=== PATIENT | female | born 1955 | race Caucasian/White ===

== ENCOUNTER 2018-04-25 13:41 | Inpatient (IN) | payer OTHER ==
[2018-04-25] MEDS ORDERED: TYLENOL 325 MG PO PRN (14:21)
[2018-04-25] MEDS ORDERED: Sodium Chloride 0.9% 10 ML FLUSH Syringe IV PRN (14:30)
[2018-04-25] MEDS ORDERED: PROVENTIL 2.5 MG/3 ML NEB IH PRN (14:43)
[2018-04-25] MEDS: DUONEB 0.5-3 MG/3 ml Neb IH SCH ×3 (14:43→22:58)
[2018-04-25 14:46] LABS: Hematocrit 52.7 % (35-47); Hemoglobin 16.6 gm/dl (12.0-16.0); Mean Cell Volume 103.1 fl (78-100); Mean Corpuscular Hgb Concent. 31.5 g/dl (32-36); Mean Platelet Volume 10.7 fl (6-9.5); Platelet Count 161 K/mm3 (150-450); Red Blood Count 5.11 M/mm3 (4.1-5.4); Red Cell Distribution Width 16.8 % (11.5-14.0)
[2018-04-25 14:48] LABS: Mean Corpuscular Hemoglobin 32.4 pg (26-32)
[2018-04-25 15:11] LABS: ALBUMIN 3.8 g/dL (3.5-5.0); ALKALINE PHOSPHATASE 89 U/L (38-126); ANION GAP 14.2 MEQ/L (5-15); BLOOD UREA NITROGEN 28 mg/dL (7-17); CHLORIDE 101 mmol/L (98-107); Calcium 8.5 mg/dL (8.4-10.2); Carbon Dioxide 32 mmol/L (22-30); Creatinine 1 0.66 mg/dL (0.52-1.04); Glucose 99 mg/dL (74-106); NT PRO BNP 2680 pg/mL (0-900); Potassium 4.3 mmol/L (3.5-5.1); SGOT/AST 241 U/L (14-36); SGPT/ALT 551 U/L (0-35); SODIUM 143 mmol/L (137-145); Total Protein 7.2 g/dL (6.3-8.2)
[2018-04-25 15:15] LABS: BAND 2 % (0.0-2.0); Lymphocytes 23 % (24-44); Monocyte 5 % (0.0-12.0); Neutrophils 70 % (36.0-66.0); Total Cells Counted 100
[2018-04-25 15:18] LABS: Platelet Estimate NORMAL (NORMAL)
[2018-04-25 15:19] LABS: Poikilocytosis 1+
[2018-04-25] MEDS: solu-MEDROL 125 MG IV SCH ×2 (15:44→21:06)
[2018-04-25] MEDS: ROCEPHIN 1 Gm-D5w 50 ml Bag** 1 G/50 ML IVPB IV SCH (15:51)
[2018-04-25] MEDS: Protonix 40MG Tablet PO SCH (15:57)
--- NOTE | 2018-04-25 16:15 | XRAY ---
Indication: Productive cough, congestion, and short of breath one week. Comparison: June 03, 2016. PA/lateral chest now demonstrates small focus lingular subsegmental atelectasis/scarring. No focal infiltrate, consolidation, or large effusion. Heart is not enlarged. Bony thorax intact again with distal left clavicle resection and T10/T11 kyphoplasty. Impression: Lingular subsegmental atelectasis/scarring. Negative acute pneumonic process or CHF.
[2018-04-25] MEDS: Zithromax 500 MG/ 250 ML NaCl Premix 500 MG/250 ML IVPB IV SCH (16:21)
[2018-04-25] MEDS ORDERED: MEDICATION INTERVENTION PO SCH (17:00)
[2018-04-25] MEDS ORDERED: Lasix 20 MG/2 ML IV ONE (17:00)
[2018-04-25] MEDS ORDERED: Colace 100 MG PO PRN (19:39)
[2018-04-25 19:44] LABS: A-aADO2 76; ABG HEMOGLOBIN 16.4; ARTERIAL BLD GAS O2 SATURATION 96.3 % (95-100); ARTERIAL BLOOD GAS BASE EXCESS 1.5 (-2.0-2.0); ARTERIAL BLOOD GAS FIO2 32 %; ARTERIAL BLOOD GAS PO2 71 mmHg (75-100); ARTERIAL BLOOD GAS pH 7.28 (7.35-7.45); CARBOXYHEMOGLOBIN 4.2 % THgb (0.0-6.9); HCO3- 30.5 (22-28); Methhemoglobin 1.3 % (1.4-1.5); paO2 pAO1 0.48
[2018-04-25 19:45] LABS: ABG SITE RIGHT BRACHIAL; ARTERIAL BLOOD GAS PCO2 65 mmHg (35-45)
[2018-04-25] MEDS: lamICTAL 100MG TABLET PO SCH (21:07)
[2018-04-25] MEDS: Sodium Chloride 0.9% 10 ML FLUSH Syringe IV SCH (21:07)
[2018-04-25] MEDS ORDERED: ZOLOFT 50 MG TABLET PO SCH (22:00)
[2018-04-25] MEDS ORDERED: ZONISAMIDE 300 MG PO SCH (22:00)
[2018-04-25] MEDS ORDERED: LAMOTRIGINE 150 MG PO SCH (22:00)
[2018-04-25] MEDS ORDERED: NON-FORMULARY ITEM (Sertraline Hcl 100 Mg [Zoloft 100 Mg] 100 MG) PO SCH (22:00)
[2018-04-26] MEDS: DUONEB 0.5-3 MG/3 ml Neb IH SCH ×6 (02:58→23:15)
[2018-04-26 03:49] LABS: A-aADO2 63; ABG HEMOGLOBIN 15.4; ABG POTASSIUM 4.3 (3.5-5.1); ARTERIAL BLD GAS O2 SATURATION 98.5 % (95-100); ARTERIAL BLOOD GAS BASE EXCESS 2.2 (-2.0-2.0); ARTERIAL BLOOD GAS FIO2 35 %; ARTERIAL BLOOD GAS PCO2 73 mmHg (35-45); ARTERIAL BLOOD GAS PO2 95 mmHg (75-100); ARTERIAL BLOOD GAS pH 7.25 (7.35-7.45); CARBOXYHEMOGLOBIN 3.6 % THgb (0.0-6.9); HGB O2 SAT 93.8 g/dF (94-100); Methhemoglobin 1.1 % (1.4-1.5)
[2018-04-26 03:50] LABS: ABG SITE RIGHT BRACHIAL
[2018-04-26] MEDS: solu-MEDROL 125 MG IV SCH ×3 (05:17→21:35)
[2018-04-26] MEDS: Sodium Chloride 0.9% 10 ML FLUSH Syringe IV SCH ×3 (05:18→21:35)
[2018-04-26 05:44] LABS: A-aADO2 57; ABG POTASSIUM 4.3 (3.5-5.1); ARTERIAL BLD GAS O2 SATURATION 98.3 % (95-100); ARTERIAL BLOOD GAS BASE EXCESS 3.9 (-2.0-2.0); ARTERIAL BLOOD GAS FIO2 35 %; ARTERIAL BLOOD GAS PO2 101 mmHg (75-100); ARTERIAL BLOOD GAS pH 7.27 (7.35-7.45); CARBOXYHEMOGLOBIN 3.2 % THgb (0.0-6.9); HCO3- 33.5 (22-28); Methhemoglobin 1.2 % (1.4-1.5); paO2 pAO1 0.64
[2018-04-26 05:45] LABS: ABG SITE RIGHT BRACHIAL; ARTERIAL BLOOD GAS PCO2 73 mmHg (35-45)
[2018-04-26 05:59] LABS: Hematocrit 49.4 % (35-47); Hemoglobin 15.1 gm/dl (12.0-16.0); Mean Cell Volume 104.9 fl (78-100); Mean Corpuscular Hemoglobin 32.1 pg (26-32); Mean Corpuscular Hgb Concent. 30.6 g/dl (32-36); Mean Platelet Volume 10.4 fl (6-9.5); Platelet Count 145 K/mm3 (150-450); Red Blood Count 4.71 M/mm3 (4.1-5.4); Red Cell Distribution Width 16.2 % (11.5-14.0); White Blood Count 3.4 K/mm3 (4.0-10.5)
[2018-04-26 06:07] LABS: ALBUMIN 3.3 g/dL (3.5-5.0); ALKALINE PHOSPHATASE 72 U/L (38-126); ANION GAP 11.2 MEQ/L (5-15); BLOOD UREA NITROGEN 21 mg/dL (7-17); CHLORIDE 99 mmol/L (98-107); Calcium 8.1 mg/dL (8.4-10.2); Carbon Dioxide 33 mmol/L (22-30); Glucose 130 mg/dL (74-106); Potassium 4.5 mmol/L (3.5-5.1); SGOT/AST 121 U/L (14-36); SGPT/ALT 398 U/L (0-35); SODIUM 139 mmol/L (137-145); Total Protein 6.3 g/dL (6.3-8.2)
[2018-04-26 07:18] LABS: BAND 2 % (0.0-2.0); Lymphocytes 10 % (24-44); Monocyte 6 % (0.0-12.0); Neutrophils 82 % (36.0-66.0); Total Cells Counted 100
[2018-04-26 07:19] LABS: Platelet Estimate DECREASED (NORMAL)
[2018-04-26 07:20] LABS: Basophilic Stippling 1+; Polychromasia 1+
[2018-04-26 07:21] LABS: Hypochromia 1+; Macrocytosis 1+
--- NOTE | 2018-04-26 09:31 | XRAY ---
Indication: COPD exacerbation. Elevated d-dimer. Multiple contiguous axial images obtained through the chest using 80 cc Isovue 370 contrast and PE protocol. Comparison: None. There is good opacification of the pulmonary arteries to include the lobar and segmental branches. No filling defect or pulmonary embolus. Heart is borderline enlarged. Aorta is normal in course and caliber with minimal calcifications. A few prominent mediastinal lymph nodes, largest distal paratracheal measuring 1.6 x 1.9 cm. 1.9 x 3 cm right supra hilar node. Left infrahilar calcified nodes. Mid to distal esophagus demonstrates diffuse wall thickening, possible esophagitis with malignancy not completely excluded. Examination of the lung parenchyma demonstrates subsegmental atelectasis/scarring in both lower lobes, right middle lobe, and lingula. 5 mm noncalcified nodularity in the posterior right upper lobe and lingular calcified granuloma. No infiltrate or effusion. Bony thorax demonstrates previous T10/T11 kyphoplasty and superior T4 Schmorl node. Limited upper abdomen demonstrates fatty liver, hepatic/splenic calcified granulomas, and bilateral renal cysts. 3.5 x 4.7 cm heterogeneous right adrenal gland mass and left adrenal gland hypertrophy. Impression: 1. Negative pulmonary embolus. 2. Scattered atelectasis/scarring. No acute cardiopulmonary abnormalities. 3. Tiny right upper lobe noncalcified nodularity. Finding possibly granulomatous as there is evidence for old granulomatous disease elsewhere. 4. Abnormal esophageal wall thickening. Rule out esophagitis versus malignancy. Direct endoscopy may yield further information. 5. Nonspecific mediastinal and right hilar prominent nodes. 6. Large indeterminant right adrenal gland mass. Left adrenal gland hypertrophy. 7. Fatty liver and bilateral renal cysts. Comment: Preliminary interpretation was made by [facility]. No critical discrepancy. CT DI 23.69
--- NOTE | 2018-04-26 09:54 | HP ---
HISTORY OF PRESENT ILLNESS: This is a 62 year-old patient of mine who presented to the clinic yesterday. She reported she had cough and congestion that started four days ago and fever up to 101F. She stated that cough was productive of yellow sputum and she had been taking some mucous relief ckch-tga-witrsul cough medicine and coughing some stuff up with this. She reports she had been taking fluids well but had started having some vomiting four day ago and diarrhea yesterday. She had a decreased appetite. She has history of chronic obstructive pulmonary disease but has not been following closely with a park maintainer. She does not wear oxygen at home. In our clinic her oxygen saturation was found to be 79% on room air. She was placed on 2 liters by nasal cannula and it quickly came up to 93%. She was not in any respiratory distress but on her lung exam she did have expiratory wheezes throughout and rhonchi. The patient was agreeable to being a direct admission to the hospital and so she was transported by ambulance to our Med/Surg floor. Overnight the respiratory therapist reported the patient was more confused so a blood gas was drawn where she was found to have acidotic and high carbon dioxide level. At that time park maintainer, Dr. Lavelle De La Cruz, was contacted and they decided to use BiPAP and she was on this overnight. A repeat blood gas at around 0330 hours in the morning did not show much improvement. Adjustments were made in the BiPAP and repeat blood gas again was about the same. The nurses and respiratory therapist report that Dr. De La Cruz could see the patient this afternoon. I discussed with the patient today at the bedside when she was alert and oriented x3 and if she would need intubated she does want to be intubated. I discussed with her smoking. She reports that right now she is not ready to quit but knows that she needs to. REVIEW OF SYSTEMS: She reports her appetite is better. The vomiting and diarrhea have stopped. She reports the cough has improved. She is not feeling extremity short of breath at this time. She continues to have some easy bruising on her arms. PAST MEDICAL HISTORY: Chronic obstructive pulmonary disease, depression, seizure disorder. History of retinol allergy branch occlusion. Stroke in 2010 which the patient reports affects her word finding sometimes. History of right adrenal mass on recent MRI in February 2018 which was unchanged from MRI in 2015. PAST SURGICAL HISTORY: Hysterectomy. Tubal ligation. Appendectomy. Right tube removed due to ectopic . Carpal tunnel surgery. MEDICATIONS: Please see the medication reconciliation list. ALLERGIES: MIDOL. STATINS. SOCIAL HISTORY: The patient lives alone and has a dog. [place] She is currently on Disability and not working. She reports she smokes up to 10 cigarettes a day. She denies any alcohol use. FAMILY HISTORY: Noncontributory. PHYSICAL EXAMINATION: VITAL SIGNS: Temperature current 96.4F, temperature max 98.2F, heart rate 71 to 83, respiratory rate 17 to 22, blood pressure 107 to 136 over 53 to 67, weight 107.7 kg. Oxygen saturation 95 to 96% on 35% oxygen on BiPAP. GENERAL: The patient is a pleasant talkative lady sitting up in bed in no acute distress. She is eating her breakfast currently off BiPAP at the moment on oxygen by nasal cannula. She is alert and oriented x3. She knows who the President of [email or web address] is. CVS: She has a regular rate and rhythm. No murmurs, gallops or rubs. CHEST: She has decreased breath sounds at the bases with expiratory wheezes and rhonchi throughout. No retractions. No dyspnea. No tachypnea. ABDOMEN: Soft, nontender, nondistended with normal bowel sounds. EXTREMITIES: She does have clubbing. No cyanosis or edema. SKIN: She has multiple bruises. Her nose has a bluish tint. LABORATORY DATA AND TESTS: On admission her white blood cell count was 5.0 and repeat was 3.4. Hemoglobin 16.6 repeat 15.1. PLT 161,000 to 145,000. BNP was 2680. Carbon dioxide 32. BUN 28. D-dimer was 3,459. Please see the blood gas results in the computer which I reviewed. She had a chest CT and according to the preliminary report did not show any pulmonary embolism. Please see the radiologist report for the full dictation. Chest x-ray no acute disease. ASSESSMENT AND PLAN: 1) CHRONIC OBSTRUCTIVE PULMONARY DISEASE EXACERBATION WITH ACUTE ON CHRONIC RESPIRATORY FAILURE: She is on BiPAP. She is on ceftriaxone, azithromycin as well as IV steroids and DuoNeb. Dr. Lavelle De La Cruz has been consulted and is following and plans to see the patient this afternoon. I discussed with the patient her code status and she does want to be intubated if she needs to be. 2) HISTORY OF STROKE: Will continue with aspirin 325 mg p.o. daily. 3) MIXED HYPERLIPIDEMIA: She reports she has not been able to tolerate statins in the past. 4) SEIZURE DISORDER: Will continue her home seizure medication. One of these the pharmacy did not have but reported that they would be able to get this morning. 5) TOBACCO DEPENDENCE: The patient was counseled that she needs to quit smoking. 6) HISTORY OF ADRENAL MASS: We have been following this as an outpatient. 7) ELEVATED LIVER FUNCTION TEST: This appears to be new for her. I ordered a hepatitis panel. 8) ELEVATD BNP: I believe she has had an echo done but I do not see a reading on that so will try to see if we can get a reading, this was done as an outpatient earlier this summer.
[2018-04-26] MEDS: lamICTAL 100MG TABLET PO SCH ×2 (10:33→21:33)
[2018-04-26] MEDS: Ecotrin 325 MG PO SCH (10:33)
[2018-04-26] MEDS: Protonix 40MG Tablet PO SCH (10:33)
[2018-04-26] MEDS: NON-FORMULARY ITEM PO SCH ×2 (10:34→21:35)
[2018-04-26] MEDS: ZOLOFT 50 MG TABLET PO SCH (10:34)
[2018-04-26] MEDS: ROCEPHIN 1 Gm-D5w 50 ml Bag** 1 G/50 ML IVPB IV SCH (10:41)
[2018-04-26] MEDS: Zithromax 500 MG/ 250 ML NaCl Premix 500 MG/250 ML IVPB IV SCH (13:11)
--- NOTE | 2018-04-26 15:34 | CONS ---
CONSULT DATE: 04/26/2018 REASON FOR CONSULT: Evaluation of shortness of breath. HISTORY: Camryn Vinson is a 62 year-old woman known to me but not regularly followed, who has been sick for about a week. The patient has been admitted from the emergency room with complaints, shortness of breath and wheezing. She had a CT chest performed which showed negative for pulmonary embolism. It did show evidence of lung nodule but more importantly showed dilated esophagus with likely lower esophageal mass and an enlarged adrenal gland which measures 5 x 4.5 cm on right side. The patient was noted to have hypercapnic respiratory failure and was treated with BiPAP. Although her ABG did not show drastic improvement clinically she has been feeling better and able to talk. At the time of my evaluation the patient has been completely off of BiPAP. She is able to talk full sentences without any significant distress. PAST MEDICAL HISTORY: Positive for chronic obstructive pulmonary disease, history of seizure disorder for which she sees Dr. Quintana. Her last seizure was more than two years ago. History of chronic respiratory failure, depression, retinal artery occlusion. PAST SURGICAL HISTORY: Hysterectomy, tubal ligation, appendectomy, removal of fallopian tube for ectopic and carpal tunnel surgery. REVIEW OF SYSTEMS: The patient does complain of dysphagia, frequent nausea and vomiting for the past few weeks. PERSONAL AND SOCIAL HISTORY: The patient still smokes half to one pack of cigarettes per day. She lives in [facility]. Apparently two of her colleagues at the facility are currently being diagnosed and treated for histoplasmosis. Details are unavailable. MEDICATIONS: Home and current medications are reviewed. ALLERGIES: MIDOL. STATIN. PHYSICAL EXAMINATION: A middle aged woman who appears fairly comfortable, able to speak without difficulty. Vital signs noted. HEENT: Normocephalic. Pupils are reactive. Oral exam shows small oropharynx. NECK: Supple. CVS: First and second heart sounds are normal, regular, rhythmic. RESPIRATORY: Shows diminished breath sounds, fairly diffuse rhonchi heard. ABDOMEN: Obese. EXTREMITIES: No significant edema is noted. LABORATORY DATA AND TESTS: White blood cell count 3.4, hemoglobin 15.1, hematocrit 49, PLT 145,000. Sodium 139, potassium 4.5, chloride 99, bicarb 33, glucose 130, BUN 20, creatinine 0.8. D-dimer was 3459. Sputum culture is pending. ABG reviewed. CT chest reviewed as well. ASSESSMENT: This is a 62 year old woman admitted with: 1) Acute on chronic hypercapnic and hypoxic respiratory failure. 2) Chronic obstructive pulmonary disease with acute exacerbation. 3) Acute bronchitis. 4) Right lung nodule will require follow up for stability. 5) Abnormal CT scan with dilated esophagus with likely lower esophageal mass for which EGD is warranted. The patient has never had this performed before. 6) Adrenal lesion: Apparently stable per MRI according to Dr. Ferris note. RECOMMENDATIONS: I agree with the present treatment. Need for use of BiPAP was discussed with patient. She is willing to try it overnight. Continue IV antibiotics, steroids, bronchodilators. Would benefit from EGD however the patient's pulmonary status needs to be improved in order to tolerate modified anesthesia without risk of intubation. Need for complete smoking cessation was stressed. Will continue to follow. Thank you for allowing me to participate in the care of your patient.
--- NOTE | 2018-04-26 16:46 | XRAY ---
Indication: Leg swelling. Elevated d-dimer. Two-dimensional sonogram and color Doppler imaging of the major venous vessels of the left and right leg was performed. Comparison: None No thrombus seen in the examined deep venous vessels of the left and right leg including greater saphenous veins. Veins demonstrate normal compressibility. Venous waveforms are normal with and without augmentation. Right popliteal fossa demonstrates 2 Main's cyst, largest measuring 7.2 x 3.6 x 2.5 cm. Smaller 3.2 x 0.9 x 1.8 cm left knee Main's cyst. Impression: 1. Left and right legs negative for DVT. 2. Incidental bilateral Main's cysts.
[2018-04-27] MEDS: DUONEB 0.5-3 MG/3 ml Neb IH SCH ×6 (03:10→23:20)
[2018-04-27 05:47] LABS: Hematocrit 47.6 % (35-47); Hemoglobin 14.4 gm/dl (12.0-16.0); Mean Corpuscular Hemoglobin 32.1 pg (26-32); Mean Corpuscular Hgb Concent. 30.3 g/dl (32-36); Mean Platelet Volume 10.6 fl (6-9.5); Platelet Count 146 K/mm3 (150-450); Red Blood Count 4.49 M/mm3 (4.1-5.4); Red Cell Distribution Width 16.3 % (11.5-14.0); White Blood Count 6.8 K/mm3 (4.0-10.5)
[2018-04-27] MEDS: solu-MEDROL 125 MG IV SCH (06:40)
[2018-04-27] MEDS: Sodium Chloride 0.9% 10 ML FLUSH Syringe IV SCH ×3 (06:40→22:44)
--- NOTE | 2018-04-27 09:04 | PCM.NOTE ---
Date and Time: 04/27/18 0858 Subjective Assessment: Patient reports that she has been drinking plenty of fluids. She is asking when she can go home. From old notes, Dr. De La Cruz had asked her to see Dr. Moran 2 years ago for an upper endoscopy because a scan at that time had also shown esophageal thickening, but the patient does not think that she ever went to see Dr. Moran for this. Patient had an abdominal MRI on 03/29/18 for her adrenal mass and this was lipid rich on the MRI and the same size as a scan from 2016 so felt to be benign. The left adrenal gland on the MRI was read as normal size. I discussed this with radiologist, Dr. Waldrop, today. - Review of Systems Constitutional: Weakness, Other (shortness of breath with exertion) Eyes: No Symptoms Ears, Nose, & Throat: No Symptoms Respiratory: Cough, Other (cough productive of some yellow sputum) Cardiac: No Symptoms Abdominal/Gastrointestinal: Other (good appetite), No Nausea, No Vomiting, No Diarrhea, No Constipation Genitourinary Symptoms: No Symptoms Musculoskeletal: No Symptoms Skin: No Symptoms Objective Exam General Appearance: no apparent distress, alert, obese, other (sitting up in bed eating her breakfast, pleasant and talkative) Neurologic Exam: alert, cooperative, normal mood/affect Skin Exam: warm, dry, other (blue discoloration to nose), No rash Respiratory Exam: other (decreased breath sounds at bases bilat and expiratory wheezes throughout, no tachypnea, speaking in full sentences) Cardiovascular Exam: regular rate/rhythm, normal heart sounds, No murmur, No friction rub, No gallop Extremity Exam: normal inspection, other (no c/c/e) OBJECTIVE DATA Vital Signs: Vital Signs - 24 hr Temp Pulse Resp BP Pulse Ox 04/27/18 07:17 97.6 F 79 22 116/61 94 L 04/27/18 06:30 85 16 98 04/27/18 04:00 98.5 F 88 19 127/60 91 L 04/27/18 03:53 85 18 91 L 04/26/18 23:46 88 18 93 L 04/26/18 23:30 98.7 F 81 22 111/57 97 04/26/18 20:29 93 L 04/26/18 20:02 98.8 F 75 18 135/85 93 L 04/26/18 19:36 75 18 93 L 04/26/18 16:17 95 04/26/18 16:10 98 04/26/18 16:00 97.8 F 84 20 118/58 96 04/26/18 14:46 81 20 99 04/26/18 12:00 98.2 F 86 20 119/75 98 04/26/18 10:46 81 20 96 Oxygen-Last 24 hours O2 Percentage 35% O2 Percentage 3 Liters = 32% O2 Percentage 3 Liters = 32% O2 Percentage 2 Liters = 28% O2 Percentage 3 Liters = 32% Pain Assessment - Last Documented Pain Intensity 0 Pain Scale Used 0-10 Pain Scale Intake and Output: Intake & Output 04/25/18 04/26/18 04/27/18 04/28/18 06:59 06:59 06:59 06:59 Intake Total 1140 1240 Output Total 1600 2925 Balance -460 -1685 Weight 107.7 kg 105.3 kg Lab Results: Lab Results-Last 24 Hours 04/27/18 Range/Units 05:12 WBC 6.8 (4.0-10.5) K/mm3 RBC 4.49 (4.1-5.4) M/mm3 Hgb 14.4 (12.0-16.0) gm/dl Hct 47.6 H (35-47) % MCV 106.0 H (78-100) fl MCH 32.1 H (26-32) pg MCHC 30.3 L (32-36) g/dl RDW 16.3 H (11.5-14.0) % Plt Count 146 L (150-450) K/mm3 MPV 10.6 H (6-9.5) fl Radiology Exams: Radiology Procedures Category Date Time Status CHEST 2 VIEWS (PA AND LAT) Routine Exams 04/25/18 15:00 Completed CHEST WITH CONTRAST [CT] Stat Exams 04/25/18 21:49 Completed VENOUS BILATERAL EXTREMITY [US] Routine Exams 04/26/18 14:45 Completed Assessment/Plan (1) COPD exacerbation Current Visit: Yes Status: Acute Onset Date: ~04/25/18 Assessment & Plan: Continue IV antibiotics, IV steroids, oxygen, BIPAP at night. Dr. Doug De La Cruz following and I appreciate his input into her care. Histoplasmosis lab ordered but not back yet. Code(s): J44.1 - CHRONIC OBSTRUCTIVE PULMONARY DISEASE W (ACUTE) EXACERBATION (2) Acute on chronic respiratory failure Current Visit: Yes Status: Acute Code(s): J96.20 - ACUTE AND CHR RESP FAILURE, UNSP W HYPOXIA OR HYPERCAPNIA (3) History of stroke Current Visit: Yes Status: Acute Assessment & Plan: Continue aspirin. Code(s): Z86.73 - PRSNL HX OF TIA (TIA), AND CEREB INFRC W/O RESID DEFICITS (4) Mixed hyperlipidemia Current Visit: Yes Status: Acute Assessment & Plan: She has not tolerated statins in past. Will start zetia. Code(s): E78.2 - MIXED HYPERLIPIDEMIA (5) Seizure disorder Current Visit: Yes Status: Acute Assessment & Plan: Continue home medication. Code(s): G40.909 - EPILEPSY, UNSP, NOT INTRACTABLE, WITHOUT STATUS EPILEPTICUS (6) Tobacco dependence Current Visit: Yes Status: Acute Assessment & Plan: She has been counseled to quit smoking. Code(s): F17.200 - NICOTINE DEPENDENCE, UNSPECIFIED, UNCOMPLICATED (7) Adrenal adenoma Current Visit: Yes Status: Acute Code(s): D35.00 - BENIGN NEOPLASM OF UNSPECIFIED ADRENAL GLAND (8) Elevated liver function tests Current Visit: Yes Status: Acute Assessment & Plan: Hepatitis panel ordered and pending. Code(s): R94.5 - ABNORMAL RESULTS OF LIVER FUNCTION STUDIES (9) Elevated brain natriuretic peptide (BNP) level Current Visit: Yes Status: Acute Assessment & Plan: Echo was done in February 2018 but no reading of this yet from messenger floorperson. licensed funeral director and embalmer, Adithya, reports cardiology group ([place]) has been called at least 5 times to get report but no report yet. He will call them again today. Code(s): R79.89 - OTHER SPECIFIED ABNORMAL FINDINGS OF BLOOD CHEMISTRY (10) Esophageal thickening Current Visit: Yes Status: Acute Assessment & Plan: Patient will need upper endoscopy when stable from respiratory standpoint. Code(s): K22.8 - OTHER SPECIFIED DISEASES OF ESOPHAGUS
[2018-04-27] MEDS: ROCEPHIN 1 Gm-D5w 50 ml Bag** 1 G/50 ML IVPB IV SCH (09:33)
[2018-04-27] MEDS: Protonix 40MG Tablet PO SCH (09:37)
[2018-04-27] MEDS: lamICTAL 100MG TABLET PO SCH ×2 (09:37→22:38)
[2018-04-27] MEDS: Ecotrin 325 MG PO SCH (09:37)
[2018-04-27] MEDS: ZOLOFT 50 MG TABLET PO SCH (09:38)
[2018-04-27] MEDS: NON-FORMULARY ITEM PO SCH ×2 (09:39→22:44)
[2018-04-27 10:10] LABS: BAND 6 % (0.0-2.0); Lymphocytes 12 % (24-44); Monocyte 5 % (0.0-12.0); Neutrophils 77 % (36.0-66.0); Total Cells Counted 100
[2018-04-27 10:12] LABS: Nucleated Red Blood Cell 2 %; Platelet Estimate NORMAL (NORMAL)
[2018-04-27 10:13] LABS: Poikilocytosis 1+
[2018-04-27] MEDS: Zithromax 500 MG/ 250 ML NaCl Premix 500 MG/250 ML IVPB IV SCH (10:16)
[2018-04-27 12:04] LABS: HEPATITIS B VIRUS CORE TOT AB Non Reactive (Non Reactive); HEPATITIS C VIRUS ANTIBODY Non Reactive (Non Reactive); Hepatitis B Surface Antigen Non Reactive (Non Reactive)
[2018-04-27] MEDS: solu-MEDROL 40 MG IV SCH ×2 (13:37→22:43)
[2018-04-27] MEDS: Zetia 10 MG PO SCH (22:42)
[2018-04-28] MEDS: DUONEB 0.5-3 MG/3 ml Neb IH SCH ×6 (03:28→23:03)
[2018-04-28 05:29] LABS: BASOPHIL % 0.2 % (0.0-0.4); Basophil (Absolute #) 0.02 (0-0.4); Eosinophil (Absolute #) 0 (0-0.5); Granulocytes % 85.8 % (36.0-66.0); Hematocrit 49.5 % (35-47); Hemoglobin 14.7 gm/dl (12.0-16.0); Lymphocyte (Absolute #) 0.72 (1.0-4.6); Lymphocytes % 7.1 % (24.0-44.0); Mean Cell Volume 107.8 fl (78-100); Mean Corpuscular Hgb Concent. 29.7 g/dl (32-36); Mean Platelet Volume 10.2 fl (6-9.5); Monocytes % 6.9 % (0.0-12.0); Platelet Count 153 K/mm3 (150-450); Red Blood Count 4.59 M/mm3 (4.1-5.4); Red Cell Distribution Width 16.4 % (11.5-14.0); White Blood Count 10.1 K/mm3 (4.0-10.5)
[2018-04-28] MEDS: solu-MEDROL 40 MG IV SCH ×3 (05:55→20:44)
[2018-04-28 05:56] LABS: ALBUMIN 3.8 g/dL (3.5-5.0); ALKALINE PHOSPHATASE 71 U/L (38-126); BLOOD UREA NITROGEN 22 mg/dL (7-17); CHLORIDE 94 mmol/L (98-107); Calcium 9.2 mg/dL (8.4-10.2); Creatinine 1 0.85 mg/dL (0.52-1.04); Glucose 118 mg/dL (74-106); Potassium 5.2 mmol/L (3.5-5.1); SGOT/AST 46 U/L (14-36); SGPT/ALT 257 U/L (0-35); SODIUM 138 mmol/L (137-145)
[2018-04-28] MEDS: Sodium Chloride 0.9% 10 ML FLUSH Syringe IV SCH ×3 (05:56→20:43)
[2018-04-28 06:08] LABS: Carbon Dioxide 38 mmol/L (22-30)
[2018-04-28 06:09] LABS: ANION GAP 11.2 MEQ/L (5-15)
--- NOTE | 2018-04-28 08:38 | PCM.NOTE ---
Date and Time: 04/28/18831 Subjective Assessment: Patient has been on Bipap every night she has been her. Dr. De La Cruz has seen her and has ordered a surgical consult for possible EGD but nursing and respiratory say he does not want an EGD now but in the future as an outpatient. Patient O2 sat is 85% but RT checked and 92% and they do not think the O2 monitor the nurses are using is picking up correctly. Patient has cool hands and significant clubbing. Patient does not have home oxygen at this time. Still awaiting reading from [facility] on Echo done February 2018. Discussed with patient access director, Adithya, yesterday. - Review of Systems Constitutional: No Symptoms Eyes: No Symptoms Ears, Nose, & Throat: No Symptoms Respiratory: Cough, Other (yellow sputum) Cardiac: No Symptoms Abdominal/Gastrointestinal: No Symptoms Genitourinary Symptoms: No Symptoms Musculoskeletal: No Symptoms Skin: No Symptoms Objective Exam General Appearance: no apparent distress, alert, obese Neurologic Exam: alert, cooperative, normal mood/affect Skin Exam: normal color, warm, dry, other (blue discoloration to her nose) Respiratory Exam: other (scattered expiratory wheezes throughout) Cardiovascular Exam: regular rate/rhythm, normal heart sounds, No murmur, No friction rub, No gallop Gastrointestinal/Abdomen Exam: soft, normal bowel sounds, No tenderness Extremity Exam: other (no c/c/e) OBJECTIVE DATA Vital Signs: Vital Signs - 24 hr Temp Pulse Resp BP Pulse Ox 04/28/18 07:15 98.1 F 88 20 128/66 99 04/28/18 04:00 98.1 F 79 22 102/66 100 04/28/18 03:30 77 20 96 04/27/18 23:54 98.2 F 83 21 121/63 99 04/27/18 23:00 88 22 96 04/27/18 19:29 98.5 F 88 22 120/60 98 04/27/18 19:19 85 20 95 04/27/18 16:21 98 F 76 20 117/67 76 L 04/27/18 16:00 20 04/27/18 14:36 78 20 98 04/27/18 12:03 97.8 F 82 20 118/66 96 04/27/18 12:02 92 L 04/27/18 12:00 20 04/27/18 10:56 100 H 20 94 L Oxygen-Last 24 hours O2 Percentage 3 Liters = 32% O2 Percentage 3 Liters = 32% O2 Percentage 35% O2 Percentage 5 Liters = 40% Pain Assessment - Last Documented Pain Intensity 0 Pain Scale Used 0-10 Pain Scale Intake and Output: Intake & Output 04/26/18 04/27/18 04/28/18 04/29/18 06:59 06:59 06:59 06:59 Intake Total 1140 1240 2880 Output Total 1600 2925 4000 Balance -460 -1316 -1120 Weight 107.7 kg 105.3 kg 105.5 kg Lab Results: Lab Results-Last 24 Hours 04/25/18 04/27/18 04/28/18 Range/Units 20:45 05:12 04:58 WBC 10.1 (4.0-10.5) K/mm3 RBC 4.59 (4.1-5.4) M/mm3 Hgb 14.7 (12.0-16.0) gm/dl Hct 49.5 H (35-47) % MCV 107.8 H (78-100) fl MCH 32.0 (26-32) pg MCHC 29.7 L (32-36) g/dl RDW 16.4 H (11.5-14.0) % Plt Count 153 (150-450) K/mm3 MPV 10.2 H (6-9.5) fl Gran % 85.8 H (36.0-66.0) % Eos # (Auto) 0 (0-0.5) Absolute Lymphs (auto) 0.72 L (1.0-4.6) Absolute Monos (auto) 0.70 (0.0-1.3) Lymphocytes % 7.1 L (24.0-44.0) % Monocytes % 6.9 (0.0-12.0) % Eosinophils % 0.0 (0.00-5.0) % Basophils % 0.2 (0.0-0.4) % Absolute Granulocytes 8.70 H (1.4-6.9) Segmented Neutrophils 77 H (36.0-66.0) % Band Neutrophils 6 H (0.0-2.0) % Lymphocytes (Manual) 12 L (24-44) % Monocytes (Manual) 5 (0.0-12.0) % Basophils # 0.02 (0-0.4) Nucleated RBCs 2 % Platelet Estimate NORMAL (NORMAL) RBC Morphology ABNORMAL Poikilocytosis 1+ Sodium (137-145) mmol/L Potassium (3.5-5.1) mmol/L Chloride (98-107) mmol/L Carbon Dioxide (22-30) mmol/L Anion Gap (5-15) MEQ/L BUN (7-17) mg/dL Creatinine (0.52-1.04) mg/dL Estimated GFR ML/MIN Glucose (74-106) mg/dL Calcium (8.4-10.2) mg/dL Total Bilirubin (0.2-1.3) mg/dL AST (14-36) U/L ALT (0-35) U/L Alkaline Phosphatase (38-126) U/L Serum Total Protein (6.3-8.2) g/dL Albumin (3.5-5.0) g/dL Hepatitis A IgM Ab Non Reactive (Non Reactive) Hep Bs Antigen Non Reactive (Non Reactive) Hep Bs Antibody, Quant <3.50 (0.00-8.49) mIU/mL Hep B Core Total Ab Non Reactive (Non Reactive) Hepatitis C Antibody Non Reactive (Non Reactive) 04/28/18 Range/Units 04:58 WBC (4.0-10.5) K/mm3 RBC (4.1-5.4) M/mm3 Hgb (12.0-16.0) gm/dl Hct (35-47) % MCV (78-100) fl MCH (26-32) pg MCHC (32-36) g/dl RDW (11.5-14.0) % Plt Count (150-450) K/mm3 MPV (6-9.5) fl Gran % (36.0-66.0) % Eos # (Auto) (0-0.5) Absolute Lymphs (auto) (1.0-4.6) Absolute Monos (auto) (0.0-1.3) Lymphocytes % (24.0-44.0) % Monocytes % (0.0-12.0) % Eosinophils % (0.00-5.0) % Basophils % (0.0-0.4) % Absolute Granulocytes (1.4-6.9) Segmented Neutrophils (36.0-66.0) % Band Neutrophils (0.0-2.0) % Lymphocytes (Manual) (24-44) % Monocytes (Manual) (0.0-12.0) % Basophils # (0-0.4) Nucleated RBCs % Platelet Estimate (NORMAL) RBC Morphology Poikilocytosis Sodium 138 (137-145) mmol/L Potassium 5.2 H (3.5-5.1) mmol/L Chloride 94 L (98-107) mmol/L Carbon Dioxide 38 H (22-30) mmol/L Anion Gap 11.2 (5-15) MEQ/L BUN 22 H (7-17) mg/dL Creatinine 0.85 (0.52-1.04) mg/dL Estimated GFR > 60.0 ML/MIN Glucose 118 H (74-106) mg/dL Calcium 9.2 (8.4-10.2) mg/dL Total Bilirubin 0.40 (0.2-1.3) mg/dL AST 46 H (14-36) U/L ALT 257 H (0-35) U/L Alkaline Phosphatase 71 (38-126) U/L Serum Total Protein 7.0 (6.3-8.2) g/dL Albumin 3.8 (3.5-5.0) g/dL Hepatitis A IgM Ab (Non Reactive) Hep Bs Antigen (Non Reactive) Hep Bs Antibody, Quant (0.00-8.49) mIU/mL Hep B Core Total Ab (Non Reactive) Hepatitis C Antibody (Non Reactive) Radiology Exams: Radiology Procedures Category Date Time Status VENOUS BILATERAL EXTREMITY [US] Routine Exams 04/26/18 14:45 Completed Multi-Disciplinary Progress Notes: Multi-Disciplinary Progress Notes 04/27/18 17:10 Respiratory Note by Ladarius Ibarra PT O2 SAT ON ROOM AIR WHILE AT REST WAS 71%, PT PLACED BACK ON 4LNC AND O2 SAT WAS 94%, NURSE NOTIFIED. Initialized on 04/27/18 17:10 - END OF NOTE 04/27/18 09:00 (created 04/27/18 09:23) Case Management Note by Deisy Espino VISITED WITH PT AND REVIEWED DISCHARGE PLAN, CONTINUES TO DECLINE NEEDS FOR DISCHARGE. INDEPENDENT WITH ALL ADL'S. Initialized on 04/27/18 09:23 - END OF NOTE Assessment/Plan (1) COPD exacerbation Current Visit: Yes Status: Acute Onset Date: ~04/25/18 Assessment & Plan: Continue IV steroids, IV antibiotics, histoplasmosis lab sent. On oxygen. Will need home oxygen. She has been on bipap nightly here. Will need Dr. De La Cruz' s clearance before any sedation for any procedure. Code(s): J44.1 - CHRONIC OBSTRUCTIVE PULMONARY DISEASE W (ACUTE) EXACERBATION (2) Acute on chronic respiratory failure Current Visit: Yes Status: Acute Code(s): J96.20 - ACUTE AND CHR RESP FAILURE, UNSP W HYPOXIA OR HYPERCAPNIA (3) History of stroke Current Visit: Yes Status: Acute Assessment & Plan: Continue aspirin. Code(s): Z86.73 - PRSNL HX OF TIA (TIA), AND CEREB INFRC W/O RESID DEFICITS (4) Mixed hyperlipidemia Current Visit: Yes Status: Acute Code(s): E78.2 - MIXED HYPERLIPIDEMIA (5) Seizure disorder Current Visit: Yes Status: Acute Assessment & Plan: Continue home medications. Code(s): G40.909 - EPILEPSY, UNSP, NOT INTRACTABLE, WITHOUT STATUS EPILEPTICUS (6) Tobacco dependence Current Visit: Yes Status: Acute Code(s): F17.200 - NICOTINE DEPENDENCE, UNSPECIFIED, UNCOMPLICATED (7) Adrenal adenoma Current Visit: Yes Status: Acute Assessment & Plan: Stable. Code(s): D35.00 - BENIGN NEOPLASM OF UNSPECIFIED ADRENAL GLAND (8) Elevated liver function tests Current Visit: Yes Status: Acute Code(s): R94.5 - ABNORMAL RESULTS OF LIVER FUNCTION STUDIES (9) Elevated brain natriuretic peptide (BNP) level Current Visit: Yes Status: Acute Assessment & Plan: Awaiting Echo report. Code(s): R79.89 - OTHER SPECIFIED ABNORMAL FINDINGS OF BLOOD CHEMISTRY (10) Esophageal thickening Current Visit: Yes Status: Acute Assessment & Plan: Plan for upper endoscopy in the future but will need to be cleared by Dr. De La Cruz before any sedation. Code(s): K22.8 - OTHER SPECIFIED DISEASES OF ESOPHAGUS
[2018-04-28 08:56] LABS: BAND 6 % (0.0-2.0); Lymphocytes 9 % (24-44); Neutrophils 85 % (36.0-66.0); Platelet Estimate NORMAL (NORMAL); Total Cells Counted 100
[2018-04-28 08:57] LABS: ANISOCYTOSIS 1+; Poikilocytosis 1+; Toxic Granulation 1+
[2018-04-28] MEDS: ROCEPHIN 1 Gm-D5w 50 ml Bag** 1 G/50 ML IVPB IV SCH (09:33)
[2018-04-28] MEDS: ZOLOFT 50 MG TABLET PO SCH (09:33)
[2018-04-28] MEDS: Protonix 40MG Tablet PO SCH (09:33)
[2018-04-28] MEDS: lamICTAL 100MG TABLET PO SCH ×2 (09:33→20:44)
[2018-04-28] MEDS: Ecotrin 325 MG PO SCH (09:34)
[2018-04-28] MEDS: NON-FORMULARY ITEM PO SCH ×2 (09:35→20:43)
[2018-04-28] MEDS: Zithromax 500 MG/ 250 ML NaCl Premix 500 MG/250 ML IVPB IV SCH (10:11)
[2018-04-28] MEDS: Zetia 10 MG PO SCH (20:44)
[2018-04-29] MEDS: DUONEB 0.5-3 MG/3 ml Neb IH SCH ×6 (02:57→23:16)
[2018-04-29 06:03] LABS: Hematocrit 51.1 % (35-47); Hemoglobin 15.3 gm/dl (12.0-16.0); Mean Cell Volume 107.1 fl (78-100); Mean Corpuscular Hemoglobin 32.1 pg (26-32); Mean Corpuscular Hgb Concent. 29.9 g/dl (32-36); Mean Platelet Volume 10.5 fl (6-9.5); Platelet Count 138 K/mm3 (150-450); Red Blood Count 4.77 M/mm3 (4.1-5.4); Red Cell Distribution Width 16.2 % (11.5-14.0); White Blood Count 7.8 K/mm3 (4.0-10.5)
[2018-04-29] MEDS: Sodium Chloride 0.9% 10 ML FLUSH Syringe IV SCH (06:48)
[2018-04-29] MEDS: solu-MEDROL 40 MG IV SCH ×3 (06:48→22:33)
[2018-04-29 07:18] LABS: BAND 1 % (0.0-2.0); Lymphocytes 10 % (24-44); Monocyte 4 % (0.0-12.0); Neutrophils 85 % (36.0-66.0); Platelet Estimate NORMAL (NORMAL); Total Cells Counted 100
[2018-04-29 08:47] LABS: A-aADO2 76; ABG HEMOGLOBIN 14.7; ABG POTASSIUM 4.6 (3.5-5.1); ARTERIAL BLD GAS O2 SATURATION 95.7 % (95-100); ARTERIAL BLOOD GAS BASE EXCESS 11.9 (-2.0-2.0); ARTERIAL BLOOD GAS FIO2 36 %; ARTERIAL BLOOD GAS PO2 66 mmHg (75-100); ARTERIAL BLOOD GAS pH 7.28 (7.35-7.45); CARBOXYHEMOGLOBIN 2.7 % THgb (0.0-6.9); HCO3- 43.2 (22-28); HGB O2 SAT 92.1 g/dF (94-100); Methhemoglobin 1.1 % (1.4-1.5); paO2 pAO1 0.46
[2018-04-29 08:48] LABS: ARTERIAL BLOOD GAS PCO2 92 mmHg (35-45)
[2018-04-29 08:49] LABS: ABG SITE RIGHT RADIAL; ALLEN TEST OK? YES
[2018-04-29] MEDS: ROCEPHIN 1 Gm-D5w 50 ml Bag** 1 G/50 ML IVPB IV SCH (09:41)
[2018-04-29] MEDS: Ecotrin 325 MG PO SCH (09:42)
[2018-04-29] MEDS: ENOXAPARIN SODIUM SQ SCH (09:42)
[2018-04-29] MEDS: Zithromax 500 MG/ 250 ML NaCl Premix 500 MG/250 ML IVPB IV SCH (10:20)
[2018-04-29 10:54] LABS: A-aADO2 100; ABG HEMOGLOBIN 14.8; ABG POTASSIUM 4.9 (3.5-5.1); ARTERIAL BLD GAS O2 SATURATION 98.2 % (95-100); ARTERIAL BLOOD GAS BASE EXCESS 12.2 (-2.0-2.0); ARTERIAL BLOOD GAS FIO2 40 %; ARTERIAL BLOOD GAS PO2 79 mmHg (75-100); ARTERIAL BLOOD GAS VENT MODE BiPAP; ARTERIAL BLOOD GAS pH 7.31 (7.35-7.45); HCO3- 42.8 (22-28); HGB O2 SAT 94.6 g/dF (94-100); Methhemoglobin 0.8 % (1.4-1.5); paO2 pAO1 0.44
[2018-04-29 10:55] LABS: ABG SITE RIGHT RADIAL; ALLEN TEST OK? YES; ARTERIAL BLOOD GAS PCO2 85 mmHg (35-45)
[2018-04-29] MEDS: Lasix 20 MG/2 ML IV SCH (10:59)
[2018-04-29] MEDS: lamICTAL 100MG TABLET PO SCH ×2 (11:27→22:30)
[2018-04-29] MEDS: ZOLOFT 50 MG TABLET PO SCH (11:28)
[2018-04-29] MEDS: Protonix 40MG Tablet PO SCH (11:28)
[2018-04-29] MEDS: NON-FORMULARY ITEM PO SCH ×2 (11:28→22:33)
--- NOTE | 2018-04-29 14:07 | PCM.NOTE ---
Date and Time: 04/29/18 1402 Subjective Assessment: Pt was not acting right this a.m. per nursing; RT did ABG with pH 7.28, paCO2 92 , and PaO2 66. This was called to Dr. De La Cruz who ordered pt on Bipap with repeat ABG to follow - this showed pH 7.31, CO2 85, and O2 79. She was more oriented. I woke her up, pt on bipap. She is oriented to place but thought the month was October. She knew she was NPO and supposed to have an EGD today. However, with her respiratory status, neither surgery nor anesthesia want to do the procedure at this time. - Review of Systems Constitutional: No Fever Respiratory: Short Of Breath Objective Exam General Appearance: no apparent distress, alert Neurologic Exam: cooperative, disoriented Skin Exam: normal color, warm, dry, No rash Eye Exam: eyes nml inspection Respiratory Exam: diminished breath sounds (poor air exchange), prolonged expirations, No crackles/rales, No rhonchi, No wheezing Cardiovascular Exam: regular rate/rhythm, normal heart sounds, No murmur Extremity Exam: other (fingers with clubbing), No pedal edema, No swelling OBJECTIVE DATA Vital Signs: Vital Signs - 24 hr Temp Pulse Resp BP Pulse Ox 04/29/18 12:00 97.1 F 90 18 124/74 100 04/29/18 11:08 98 H 22 100 04/29/18 08:58 74 18 100 04/29/18 08:00 24 04/29/18 07:47 97 04/29/18 07:39 98.3 F 100 H 24 128/61 100 04/29/18 04:00 98.2 F 93 H 16 128/57 100 04/29/18 03:02 93 H 16 100 04/29/18 00:00 97.7 F 91 H 16 122/57 98 04/28/18 23:16 88 16 98 04/28/18 20:38 94 H 24 89 L 04/28/18 20:00 98.7 F 91 H 24 111/58 92 L 04/28/18 16:24 96 H 20 97 04/28/18 16:00 20 04/28/18 15:34 97.8 F 94 H 22 130/68 97 Oxygen-Last 24 hours O2 Percentage 3 Liters = 32% O2 Percentage 3 Liters = 32% O2 Percentage 3 Liters = 32% O2 Percentage 4 Liters = 36% Oxygen Flowrate (L/min)-RT 3 Pain Assessment - Last Documented Pain Intensity 0 Pain Scale Used FLACC Intake and Output: Intake & Output 04/27/18 04/28/18 04/29/18 04/30/18 11:59 11:59 11:59 11:59 Intake Total 880 3000 360 Output Total 2925 4200 1850 Balance -2045 -1200 -1490 Weight 105.3 kg 105.5 kg 104.8 kg Lab Results: Lab Results-Last 24 Hours 04/29/18 04/29/18 04/29/18 Range/Units 05:30 08:21 10:37 WBC 7.8 (4.0-10.5) K/mm3 RBC 4.77 (4.1-5.4) M/mm3 Hgb 15.3 (12.0-16.0) gm/dl Hct 51.1 H (35-47) % MCV 107.1 H (78-100) fl MCH 32.1 H (26-32) pg MCHC 29.9 L (32-36) g/dl RDW 16.2 H (11.5-14.0) % Plt Count 138 L (150-450) K/mm3 MPV 10.5 H (6-9.5) fl Segmented Neutrophils 85 H (36.0-66.0) % Band Neutrophils 1 (0.0-2.0) % Lymphocytes (Manual) 10 L (24-44) % Monocytes (Manual) 4 (0.0-12.0) % Platelet Estimate NORMAL (NORMAL) RBC Morphology NORMAL Puncture Site RIGHT RADIAL RIGHT RADIAL pCO2 92 H* 85 H* (35-45) mmHg pO2 66 L 79 (75-100) mmHg Base Excess 11.9 H 12.2 H (-2.0-2.0) O2 Saturation 92.1 L 94.6 (94-100) g/dF ABG pH 7.28 L 7.31 L (7.35-7.45) ABG HCO3 43.2 H* 42.8 H* (22-28) ABG O2 Sat (Measured) 95.7 98.2 (95-100) % Kailash Test YES YES A-a Gradient 76 100 a/A Ratio 0.46 0.44 Hemoglobin 14.7 14.8 Carboxyhemoglobin 2.7 3.0 (0.0-6.9) % THgb Methemoglobin 1.1 L 0.8 L (1.4-1.5) % Potassium 4.6 4.9 (3.5-5.1) Temperature 37.0 37.0 C POC O2 Flow Rate 36 40 % Vent Mode BiPAP Inspiratory BiPAP 16 Expiratory BiPAP 8 Multi-Disciplinary Progress Notes: Multi-Disciplinary Progress Notes 04/29/18 12:08 Respiratory Note by Loni Townsend SPOKE WITH DR France CAIN APPROX 1030 AND REPORTED GASES Initialized on 04/29/18 12:08 - END OF NOTE 04/29/18 11:17 Respiratory Note by Loni Townsend ABGS REDRAWN AT 1050 16/8 40%. PH-7.31 CO2-85 PO2-79 HC03-42 SAT-94. RESULTS REPORTED TO DR. KLEIN Initialized on 04/29/18 11:17 - END OF NOTE 04/29/18 09:01 Respiratory Note by Loni Townsend 0830 PT SOME WHAT LETHARGIC. ABGS DRAWN ON N/C 4LPM. PH-7.29 CO2-92 PO2-66 HCO3- 43.2 . PLACED BACK ON BIPAP 16/8 40%. NOTIFIED DR SAMIRA DE LA CRUZ OF RESULTS. PT IS TO HAVE EGD AT SOMETIME TODAY. DR DE LA CRUZ STATED IT WOULD BE UP TO [facility] TO DECIDE IF THEY WOULD STILL DO THE PROCEDURE. Initialized on 04/29/18 09:01 - END OF NOTE 04/28/18 15:00 (created 04/28/18 15:05) Case Management Note by Deisy Espino VISITED WITH PT, STILL DECLINED NEEDS FOR DISCHARGE. INDEPENDENT WITH ALL ADL' S. DRIVES AND HAS TRANSPORTATION TO ALL APPTS. PLANS TO RETURN HOME TO PRE EPISODIC LEVEL OF [place]. DID DISCUSS THAT SHE WOULD LIKELY GO HOME WITH HOME OXYGEN. PT IS AGREEABLE FOR THIS, AND REQUESTS TO USE [facility] FOR ALL HOME OXYGEN NEED.S Initialized on 04/28/18 15:05 - END OF NOTE Assessment/Plan (1) COPD exacerbation Current Visit: Yes Status: Acute Onset Date: ~04/25/18 Assessment & Plan: on zithromax and rocephin IV,and 40mg solumedrol IV q8h. Dr. De La Cruz consulting, thank you, who agreed with current management. Code(s): J44.1 - CHRONIC OBSTRUCTIVE PULMONARY DISEASE W (ACUTE) EXACERBATION (2) BiPAP (biphasic positive airway pressure) dependence Current Visit: Yes Status: Acute Onset Date: ~04/25/18 Code(s): Z99.89 - DEPENDENCE ON OTHER ENABLING MACHINES AND DEVICES (3) Elevated pCO2 on arterial blood gas Current Visit: Yes Status: Acute Onset Date: ~04/25/18 Assessment & Plan: some improvement on bipap Code(s): R79.81 - ABNORMAL BLOOD-GAS LEVEL (4) Acute on chronic respiratory failure Current Visit: Yes Status: Acute Code(s): J96.20 - ACUTE AND CHR RESP FAILURE, UNSP W HYPOXIA OR HYPERCAPNIA (5) Esophageal thickening Current Visit: Yes Status: Acute Assessment & Plan: No trouble eating currently. Will defer until Tuesday for pt to discuss further with Dr. Ferris. Code(s): K22.8 - OTHER SPECIFIED DISEASES OF ESOPHAGUS
[2018-04-29] MEDS: Lactated Ringers 1,000 ML IV SCH ×2 (21:27→21:28)
[2018-04-29] MEDS: Zetia 10 MG PO SCH (22:40)
[2018-04-30] MEDS: DUONEB 0.5-3 MG/3 ml Neb IH SCH ×6 (03:08→23:03)
[2018-04-30 05:17] LABS: Hematocrit 48.6 % (35-47); Hemoglobin 14.5 gm/dl (12.0-16.0); Mean Cell Volume 106.8 fl (78-100); Mean Corpuscular Hemoglobin 31.9 pg (26-32); Mean Corpuscular Hgb Concent. 29.8 g/dl (32-36); Mean Platelet Volume 9.9 fl (6-9.5); Platelet Count 126 K/mm3 (150-450); Red Blood Count 4.55 M/mm3 (4.1-5.4); Red Cell Distribution Width 15.8 % (11.5-14.0); White Blood Count 6.9 K/mm3 (4.0-10.5)
[2018-04-30 05:41] LABS: ALBUMIN 3.3 g/dL (3.5-5.0); ALKALINE PHOSPHATASE 56 U/L (38-126); BLOOD UREA NITROGEN 23 mg/dL (7-17); CHLORIDE 93 mmol/L (98-107); Creatinine 1 0.79 mg/dL (0.52-1.04); Glucose 124 mg/dL (74-106); Potassium 4.8 mmol/L (3.5-5.1); SGOT/AST 23 U/L (14-36); SGPT/ALT 141 U/L (0-35); SODIUM 138 mmol/L (137-145); Total Protein 6.1 g/dL (6.3-8.2)
[2018-04-30 05:48] LABS: Carbon Dioxide 40 mmol/L (22-30)
[2018-04-30 06:04] LABS: ANION GAP 9.8 MEQ/L (5-15)
[2018-04-30] MEDS: solu-MEDROL 40 MG IV SCH ×3 (06:23→23:05)
[2018-04-30 06:42] LABS: BAND 1 % (0.0-2.0); Lymphocytes 5 % (24-44); Monocyte 6 % (0.0-12.0); Neutrophils 88 % (36.0-66.0); Total Cells Counted 100
[2018-04-30 06:43] LABS: Platelet Estimate DECREASED (NORMAL)
[2018-04-30 06:44] LABS: Basophilic Stippling 1+; Polychromasia 1+
[2018-04-30] MEDS ORDERED: Zofran 4 MG/2 ML VIAL IV PRN (08:11)
[2018-04-30] MEDS: Lasix 20 MG/2 ML IV SCH (09:30)
[2018-04-30] MEDS: ROCEPHIN 1 Gm-D5w 50 ml Bag** 1 G/50 ML IVPB IV SCH (09:31)
[2018-04-30] MEDS: Zithromax 500 MG/ 250 ML NaCl Premix 500 MG/250 ML IVPB IV SCH (09:32)
[2018-04-30] MEDS: lamICTAL 100MG TABLET PO SCH ×2 (09:56→23:04)
[2018-04-30] MEDS: ZOLOFT 50 MG TABLET PO SCH (09:57)
[2018-04-30] MEDS: Protonix 40MG Tablet PO SCH (09:57)
[2018-04-30] MEDS: NON-FORMULARY ITEM PO SCH ×2 (09:57→23:04)
[2018-04-30] MEDS: Ecotrin 325 MG PO SCH (10:03)
[2018-04-30] MEDS: ENOXAPARIN SODIUM SQ SCH (10:03)
[2018-04-30] MEDS ORDERED: Phenergan 25 MG INJ IV PRN (10:13)
--- NOTE | 2018-04-30 10:13 | PCM.NOTE ---
Date and Time: 04/30/18 1007 Subjective Assessment: Pt had vomiting after eating breakfast today; frothy white material and food, per nurses. Pt states she's been having this over the past 1 month. Overnight she was on Bipap all night. She thought today was Tuesday, initially. She was off bipap to eat but now back on it and resting. - Review of Systems Constitutional: No Fever Respiratory: Cough, Short Of Breath Objective Exam General Appearance: no apparent distress, alert, obese Neurologic Exam: oriented x 3, cooperative Skin Exam: warm, dry, other (increased vasculature on cheeks bilat), No rash Respiratory Exam: diminished breath sounds (poor air exchange), crackles/rales ( scattered), wheezing (scattered) Cardiovascular Exam: regular rate/rhythm, normal heart sounds, No murmur Extremity Exam: No pedal edema, No swelling Back Exam: normal inspection, No rash OBJECTIVE DATA Vital Signs: Vital Signs - 24 hr Temp Pulse Resp BP Pulse Ox 04/30/18 08:00 94 H 22 85 L 04/30/18 07:16 83 18 121/60 96 04/30/18 04:00 97.7 F 92 H 18 132/66 98 04/30/18 03:08 80 20 99 04/30/18 00:00 18 04/29/18 23:58 97.6 F 77 17 116/63 99 04/29/18 23:19 76 16 98 04/29/18 20:00 18 04/29/18 19:42 98.8 F 87 18 111/53 97 04/29/18 19:35 86 17 98 04/29/18 16:00 97 F 86 12 111/70 99 04/29/18 15:56 94 H 22 99 04/29/18 12:00 97.1 F 90 18 124/74 100 04/29/18 11:08 98 H 22 100 Oxygen-Last 24 hours O2 Percentage 4 Liters = 36% O2 Percentage 2 Liters = 28% Oxygen Flowrate (L/min)-RT 3 Pain Assessment - Last Documented Pain Intensity 0 Pain Scale Used 0-10 Pain Scale,FLACC Intake and Output: Intake & Output 04/27/18 04/28/18 04/29/18 04/30/18 11:59 11:59 11:59 11:59 Intake Total 880 3000 360 400 Output Total 2925 4200 1850 450 Balance -2045 -1200 -1490 -50 Weight 105.3 kg 105.5 kg 104.8 kg 103.6 kg Lab Results: Lab Results-Last 24 Hours 04/29/18 04/30/18 04/30/18 Range/Units 10:37 05:10 05:10 WBC 6.9 (4.0-10.5) K/mm3 RBC 4.55 (4.1-5.4) M/mm3 Hgb 14.5 (12.0-16.0) gm/dl Hct 48.6 H (35-47) % MCV 106.8 H (78-100) fl MCH 31.9 (26-32) pg MCHC 29.8 L (32-36) g/dl RDW 15.8 H (11.5-14.0) % Plt Count 126 L (150-450) K/mm3 MPV 9.9 H (6-9.5) fl Segmented Neutrophils 88 H (36.0-66.0) % Band Neutrophils 1 (0.0-2.0) % Lymphocytes (Manual) 5 L (24-44) % Monocytes (Manual) 6 (0.0-12.0) % Platelet Estimate DECREASED (NORMAL) RBC Morphology ABNORMAL Polychromasia 1+ Basophilic Stippling 1+ Puncture Site RIGHT RADIAL pCO2 85 H* (35-45) mmHg pO2 79 (75-100) mmHg Base Excess 12.2 H (-2.0-2.0) O2 Saturation 94.6 (94-100) g/dF ABG pH 7.31 L (7.35-7.45) ABG HCO3 42.8 H* (22-28) ABG O2 Sat (Measured) 98.2 (95-100) % Kailash Test YES A-a Gradient 100 a/A Ratio 0.44 Hemoglobin 14.8 Carboxyhemoglobin 3.0 (0.0-6.9) % THgb Methemoglobin 0.8 L (1.4-1.5) % Potassium 4.9 4.8 (3.5-5.1) Temperature 37.0 C POC O2 Flow Rate 40 % Vent Mode BiPAP Inspiratory BiPAP 16 Expiratory BiPAP 8 Sodium 138 (137-145) mmol/L Chloride 93 L (98-107) mmol/L Carbon Dioxide 40 H (22-30) mmol/L Anion Gap 9.8 (5-15) MEQ/L BUN 23 H (7-17) mg/dL Creatinine 0.79 (0.52-1.04) mg/dL Estimated GFR > 60.0 ML/MIN Glucose 124 H (74-106) mg/dL Calcium 9.0 (8.4-10.2) mg/dL Total Bilirubin 0.50 (0.2-1.3) mg/dL AST 23 (14-36) U/L ALT 141 H (0-35) U/L Alkaline Phosphatase 56 (38-126) U/L Serum Total Protein 6.1 L (6.3-8.2) g/dL Albumin 3.3 L (3.5-5.0) g/dL Multi-Disciplinary Progress Notes: Multi-Disciplinary Progress Notes 04/30/18 08:07 Respiratory Note by Loni Townsend 0800 PT REQUESTING TO BACK ON BIPAP DUE TO SOB Initialized on 04/30/18 08:07 - END OF NOTE 04/29/18 12:08 Respiratory Note by Loni Townsend SPOKE WITH DR France LARSON APPROX 1030 AND REPORTED GASES Initialized on 04/29/18 12:08 - END OF NOTE 04/29/18 11:17 Respiratory Note by Loni Townsend ABGS REDRAWN AT 1050 16/8 40%. PH-7.31 CO2-85 PO2-79 HC03-42 SAT-94. RESULTS REPORTED TO DR. KLEIN Initialized on 04/29/18 11:17 - END OF NOTE Assessment/Plan (1) COPD exacerbation Current Visit: Yes Status: Acute Onset Date: ~04/25/18 Assessment & Plan: She is on IV rocephin and zithromax; changing to levaquin 500mg IV daily. I spoke with Dr. De La Cruz regarding possible transfer to [facility] so that she could get the EGD to evaluate esophageal thickening. He is actually not on today, thinks that since pt is stable, it is Tuesday, and she wouldn't get a procedure until tomorrow at any rate, she should stay here and if Dr. Ferris calls him tomorrow he can arrange for transfer then. Pt not on O2 at home. 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 Code(s): J44.1 - CHRONIC OBSTRUCTIVE PULMONARY DISEASE W (ACUTE) EXACERBATION (2) BiPAP (biphasic positive airway pressure) dependence Current Visit: Yes Status: Acute Onset Date: ~04/25/18 Code(s): Z99.89 - DEPENDENCE ON OTHER ENABLING MACHINES AND DEVICES (3) Elevated pCO2 on arterial blood gas Current Visit: Yes Status: Acute Onset Date: ~04/25/18 Code(s): R79.81 - ABNORMAL BLOOD-GAS LEVEL (4) Acute on chronic respiratory failure Current Visit: Yes Status: Chronic Code(s): J96.20 - ACUTE AND CHR RESP FAILURE, UNSP W HYPOXIA OR HYPERCAPNIA (5) Esophageal thickening Current Visit: Yes Status: Acute Assessment & Plan: With sx developing over the past 1 month. I have a call out to Dr. Kevin Larson to discuss the possible EGD at another facility to get his input. Code(s): K22.8 - OTHER SPECIFIED DISEASES OF ESOPHAGUS (6) Mixed hyperlipidemia Current Visit: Yes Status: Acute Assessment & Plan: Per pt she can't tolerate statins so she stopped taking them altogether. Code(s): E78.2 - MIXED HYPERLIPIDEMIA (7) Adrenal adenoma Current Visit: Yes Status: Chronic Code(s): D35.00 - BENIGN NEOPLASM OF UNSPECIFIED ADRENAL GLAND (8) History of stroke Current Visit: Yes Status: Chronic Assessment & Plan: She had a CVA several years ago, but about 1 mo ago started having trouble with her vision and went to ophthalmology and was told there was a stroke in the eye. She saw (Denisa) Corona and was placed on ASA 325mg daily (which we are holding due to prospective EGD). Code(s): Z86.73 - PRSNL HX OF TIA (TIA), AND CEREB INFRC W/O RESID DEFICITS (9) Seizure disorder Current Visit: Yes Status: Chronic Assessment & Plan: sees Dr. Quintana regularly Code(s): G40.909 - EPILEPSY, UNSP, NOT INTRACTABLE, WITHOUT STATUS EPILEPTICUS (10) Tobacco dependence Current Visit: Yes Status: Chronic Assessment & Plan: 50+ pk yrs of smoking. I told the patient this morning that she has got to stop , it is killing her. Code(s): F17.200 - NICOTINE DEPENDENCE, UNSPECIFIED, UNCOMPLICATED
[2018-04-30] MEDS: Lactated Ringers 1,000 ML IV SCH (10:59)
[2018-04-30] MEDS: Levofloxacin 500MG/100ML D5W 500 MG/100 ML BAG IV SCH (10:59)
[2018-04-30] MEDS: Zetia 10 MG PO SCH (23:03)
[2018-05-01] MEDS: DUONEB 0.5-3 MG/3 ml Neb IH SCH ×2 (03:07→06:45)
[2018-05-01] MEDS: solu-MEDROL 40 MG IV SCH (06:11)
[2018-05-01 06:43] VITALS: BP 119/61
[2018-05-01 06:53] VITALS: PULSE 87; O2SAT 95
--- NOTE | 2018-05-01 08:48 | CONS ---
CONSULT DATE: 04/28/2018 HISTORY: This is a 62 year-old white female who is hospitalized at [facility] because of increasing shortness of breath, cough and elevated temperature. The patient was diagnosed to have chronic obstructive pulmonary disease in acute exacerbation. The patient has acute on chronic hypercapnic and hypoxic respiratory failure. The patient was also seen by Dr. Lavelle De La Cruz. He still requires supplemental oxygen to maintain her oxygen saturations. CT of the chest was negative for pulmonary embolism. CT also revealed dilated esophagus and likely lower esophageal mass and enlarged adrenal glands. EGD is being considered. I was asked to provide this consultation for cardiac evaluation. The patient had an echocardiogram done which revealed preserved left ventricular systolic function, severe degree of mitral stenosis noted with moderate mitral regurgitation, mild pulmonary hypertension. PAST MEDICAL HISTORY: History of CVA, was thought to have moderate degree of stenosis involving the carotid arteries, hyperlipidemia. She also has history of seizure disorder. She also has history of retinal artery occlusion. PAST SURGICAL HISTORY: Hysterectomy, tubal ligation. Appendectomy. Carpal tunnel release in the past. SOCIAL HISTORY: The patient is single. She is an active smoker. She smokes about a half pack of cigarettes a day. FAMILY HISTORY: Father at age of 60 due to myocardial infarction. REVIEW OF SYSTEMS: PHYSICAL EXAMINATION: Her examination on tele-cardiologic consultation revealed the patient in supine position. She did not appear to be in acute distress. Vital signs were reported within normal range. LUNGS: Reduced at the bases. HEART: Sounds are distant. EXTREMITIES: Mild pedal edema noted. LAB DATA AND TESTS: Labs were reviewed. She had EKG done on 04/25/2018 which revealed sinus rhythm, atrial conduction abnormalities, poor R-progression. IMPRESSION: 1) Chronic obstructive pulmonary disease in acute exacerbation. 2) Acute on chronic hypercapnic and hypoxic respiratory failure. We will give her IV Lasix. 3) Severe degree of mitral stenosis. 4) Active smoker. 5) Dilated esophagus on CT scan is likely lower esophageal mass. 6) Prior history of CVA, moderate degree of carotid artery stenosis by Doppler study just performed in [place]. 7) Hyperlipidemia. PLAN: I would recommend to give the patient Lasix at 20 mg IV starting tomorrow and see if that will help her breathing and help her oxygenation, continue cardiac monitoring. If the patient is not significantly hypoxic in her pulmonary status and is stable, may proceed with EGD. I would also recommend deep venous thrombosis prophylaxis with 40 mg of subcu Lovenox daily. The patient was also advised to stop cigarette smoking on permanent basis. Eventually, I will evaluate this patient with transesophageal echocardiogram for further assessment of her mitral stenosis and further intervention depending on her pulmonary status and what would be the finding of EGD. On discharge please make an appointment to see me for follow up. Thank you for this consultation.
--- NOTE | 2018-05-01 08:59 | PCM.NOTE ---
Date and Time: 05/01/1849 Subjective Assessment: Dr. De La Cruz called and states that he would want to know when Dr. Kevin Larson would do the scope before he would transfer her to [facility]. He asks that we try to find this out for him. Patient reports her mouth feels dry after being on bipap. She denies any vomiting at supper last night or breakfast this AM. She denies any pain. She had her telecardiology consult and I have asked the nurses to obtain the report for her chart. - Review of Systems Constitutional: No Symptoms Ears, Nose, & Throat: No Symptoms Respiratory: Cough, Short Of Breath Cardiac: No Symptoms Abdominal/Gastrointestinal: No Symptoms Genitourinary Symptoms: No Symptoms Musculoskeletal: No Symptoms Skin: No Symptoms Objective Exam General Appearance: no apparent distress, alert, other (on oxygen by nasal cannula) Neurologic Exam: alert Skin Exam: normal color, warm, dry, No rash Respiratory Exam: other (expiratory wheezes throughout, no crackles, equal breath sounds) Cardiovascular Exam: regular rate/rhythm, normal heart sounds, No murmur, No friction rub, No gallop (+ clubbing of fingers) Gastrointestinal/Abdomen Exam: soft, normal bowel sounds, No tenderness, No distention, No mass, No guarding Extremity Exam: other (no c/c/e) OBJECTIVE DATA Vital Signs: Vital Signs - 24 hr Temp Pulse Resp BP Pulse Ox 05/01/18 08:00 20 05/01/18 06:48 87 20 95 05/01/18 06:42 96.3 F 88 22 119/61 94 L 05/01/18 03:48 98.0 F 95 H 18 116/58 95 05/01/18 03:07 87 19 97 04/30/18 23:33 18 04/30/18 23:30 98.8 F 95 H 18 98/54 98 04/30/18 23:03 78 18 98 04/30/18 20:00 98.7 F 92 H 20 139/60 98 04/30/18 19:05 89 20 98 04/30/18 16:03 89 22 98 04/30/18 16:00 98.0 F 97 H 22 113/59 98 04/30/18 12:23 88 22 98 04/30/18 12:00 98.2 F 93 H 18 88/44 95 Oxygen-Last 24 hours O2 Percentage 3 Liters = 32% O2 Percentage 4 Liters = 36% O2 Percentage 4 Liters = 36% O2 Percentage 3 Liters = 32% Pain Assessment - Last Documented Pain Intensity 0 Pain Scale Used 0-10 Pain Scale,FLACC Intake and Output: Intake & Output 04/29/18 04/30/18 05/01/18 05/02/18 06:59 06:59 06:59 06:59 Intake Total 480 400 300 Output Total [id number] Balance -6397 -250 -7637 Weight 104.8 kg 103.6 kg 105.6 kg Assessment/Plan (1) COPD exacerbation Current Visit: Yes Status: Acute Onset Date: ~04/25/18 Assessment & Plan: Continue levofloxacin (started over the weekend). She had been on ceftriaxone and azithromycin before this. Dr. Doug De La Cruz has been following her. Bipap every night with significant carbon dioxide retention. Code(s): J44.1 - CHRONIC OBSTRUCTIVE PULMONARY DISEASE W (ACUTE) EXACERBATION (2) Acute on chronic respiratory failure Current Visit: Yes Status: Chronic Code(s): J96.20 - ACUTE AND CHR RESP FAILURE, UNSP W HYPOXIA OR HYPERCAPNIA (3) History of stroke Current Visit: Yes Status: Chronic Assessment & Plan: Continue aspirin. Code(s): Z86.73 - PRSNL HX OF TIA (TIA), AND CEREB INFRC W/O RESID DEFICITS (4) Mixed hyperlipidemia Current Visit: Yes Status: Acute Code(s): E78.2 - MIXED HYPERLIPIDEMIA (5) Seizure disorder Current Visit: Yes Status: Chronic Assessment & Plan: Continue home medication. Code(s): G40.909 - EPILEPSY, UNSP, NOT INTRACTABLE, WITHOUT STATUS EPILEPTICUS (6) Tobacco dependence Current Visit: Yes Status: Chronic Assessment & Plan: Patient has been counseled that she needs to quit. Code(s): F17.200 - NICOTINE DEPENDENCE, UNSPECIFIED, UNCOMPLICATED (7) Adrenal adenoma Current Visit: Yes Status: Chronic Assessment & Plan: Stable on MRI. Code(s): D35.00 - BENIGN NEOPLASM OF UNSPECIFIED ADRENAL GLAND (8) Elevated liver function tests Current Visit: Yes Status: Chronic Assessment & Plan: Improving. Hepatitis panel negative. Code(s): R94.5 - ABNORMAL RESULTS OF LIVER FUNCTION STUDIES (9) Elevated brain natriuretic peptide (BNP) level Current Visit: Yes Status: Resolved Code(s): R79.89 - OTHER SPECIFIED ABNORMAL FINDINGS OF BLOOD CHEMISTRY (10) Esophageal thickening Current Visit: Yes Status: Acute Assessment & Plan: Unable to have upper endoscopy here at [facility] so plan is for her to transfer to [facility] for this. Dr. Doug De La Cruz said he would accept her if I called the transfer line which I did at 8:[address] Kevin Larson says he is fine with her being transferred to [facility] for this. Code(s): K22.8 - OTHER SPECIFIED DISEASES OF ESOPHAGUS (11) Mitral stenosis with incompetence or regurgitation Current Visit: Yes Status: Acute Assessment & Plan: She was seen by air bag stripper Dr. Nirmala Jeter and they plan to follow up as an outpatient. Echo done late February and reading available last week from air bag stripper showed severe mirtral stenosis. Code(s): I05.2 - RHEUMATIC MITRAL STENOSIS WITH INSUFFICIENCY
--- NOTE | 2018-05-01 09:24 | CONS ---
CONSULT DATE: 04/29/2018 HISTORY: This patient presents with dysphagia, nausea and vomiting. The patient has been having symptoms for about a month. She has difficulty with food. She has almost immediate nausea and vomiting after eating almost anything. Liquids go down fine. She has not had problems like this before. She also had shortness of breath. She was on BiPAP yesterday for acute on chronic obstructive pulmonary disease. REVIEW OF SYSTEMS: Twelve systems reviewed and negative except for in the history of present illness. PAST MEDICAL HISTORY: Chronic obstructive pulmonary disease, seizures, coronary artery disease. PAST SURGICAL HISTORY: Hysterectomy, tubal. Appendectomy. MEDICATIONS: Medications reviewed per SEP. ALLERGIES: STATIN, MIDOL. SOCIAL HISTORY: Positive for tobacco half pack per day. FAMILY HISTORY: Mother with bone cancer. PHYSICAL EXAMINATION: GENERAL: Breathing fairly comfortably on nasal cannula now. HEENT: Sclera nonicteric. Extraocular movements intact. NECK: Supple. No JVD. CHEST: Nonlabored breathing. ABDOMEN: Soft, nondistended, nontender. EXTREMITIES: Mild peripheral edema. NEURO: Awake, alert, seemed somewhat confused. She thought she went for EGD today per nursing she did not go for any imaging or procedures today. LAB DATA AND TESTS: CT scan with right adrenal mass 5 x 4.5 cm with previous MRI consistent with adenoma. CT also showed possible esophageal wall thickening distal esophagus which may be esophagitis versus malignancy. ASSESSMENT: Dysphagia, nausea and vomiting with esophageal thickening. PLAN: I recommend EGD. However, the patient is awaiting cardiac clearance before proceeding with procedure.
[2018-05-01] MEDS: ZOLOFT 50 MG TABLET PO SCH (09:35)
[2018-05-01] MEDS: lamICTAL 100MG TABLET PO SCH (09:35)
[2018-05-01] MEDS: Protonix 40MG Tablet PO SCH (09:36)
[2018-05-01] MEDS: NON-FORMULARY ITEM PO SCH (09:36)
[2018-05-01] MEDS: Lasix 20 MG/2 ML IV SCH (09:37)
[2018-05-01] MEDS: Levofloxacin 500MG/100ML D5W 500 MG/100 ML BAG IV SCH (09:37)
[2018-05-01] MEDS: Ecotrin 325 MG PO SCH (09:39)
[2018-05-01] MEDS: ENOXAPARIN SODIUM SQ SCH (09:39)
== END 2018-05-01 10:26 | disposition short-term general hospital (02) | DRG 190 ==
LOC: MED SURG 13:55 → OBSVTOIN 20:10
PROVIDERS: ADMIT Internal Medicine; ATTEND Internal Medicine
DX: J44.1 Chronic obstructive pulmonary disease with (acute) exacerbation (principal); J96.22 Acute and chronic respiratory failure with hypercapnia; J96.21 Acute and chronic respiratory failure with hypoxia; J20.9 Acute bronchitis, unspecified; J44.0 Chronic obstructive pulmonary disease with (acute) lower respiratory infection; Z86.73 Personal history of transient ischemic attack (TIA), and cerebral infarction without residual deficits; D35.00 Benign neoplasm of unspecified adrenal gland; E78.2 Mixed hyperlipidemia; G40.909 Epilepsy, unspecified, not intractable, without status epilepticus; E27.8 Other specified disorders of adrenal gland; M79.89 Other specified soft tissue disorders; R94.5 Abnormal results of liver function studies; R79.89 Other specified abnormal findings of blood chemistry; R13.10 Dysphagia, unspecified; I05.2 Rheumatic mitral stenosis with insufficiency; K22.8 Other specified diseases of esophagus; R91.1 Solitary pulmonary nodule; R79.81 Abnormal blood-gas level; Z72.0 Tobacco use; Z80.8 Family history of malignant neoplasm of other organs or systems; Z99.89 Dependence on other enabling machines and devices
CPT/HCPCS: 36415; 36600; 71046; 71260; 80053; 80074; 82375; 82803; 83036; 83880; 84132; 85025; 85379; 87040; 87070; 87385; 93005; 93268; 93970; 94002; 94003; 94150; 94640; 94667; 94668; 94760; 94762; J0456; J0696; J1650; J1940; J1956; J2405; J2920; J2930; J7609; Q3014; A9270-GY

== ENCOUNTER 2019-05-28 06:00 | Day surgery (SDC) | payer MEDICARE, OTHER ==
[2019-05-28] MEDS ORDERED: Sensorcaine 0.25% 10 ML IJ ONE (06:01)
[2019-05-28] MEDS ORDERED: Lactated Ringers 1,000 ML IV ONE ×3 (06:12→12:29)
[2019-05-28] MEDS ORDERED: Lactated Ringers 1,000 ML IV SCH (06:30)
[2019-05-28] MEDS ORDERED: Naropin 0.5% 30 ML VIAL ONE (06:58)
[2019-05-28] MEDS ORDERED: Xylocaine-Mpf 2% 5 Ml Vial ONE (06:59)
[2019-05-28] MEDS ORDERED: Sensorcaine 0.25% 10 ML ONE (07:20)
[2019-05-28] MEDS ORDERED: CEFAZOLIN 2 GM-D5W BAG** 2 GM/50 ML ML IV ONE (07:50)
[2019-05-28] MEDS ORDERED: CEFAZOLIN 2 GM-D5W BAG** 2 GM/50 ML ML IV SCH (08:00)
[2019-05-28] MEDS ORDERED: XYLOCAINE 1% HCL 20 ML MDV ONE (10:15)
--- NOTE | 2019-05-28 10:43 | HP ---
DATE OF SURGERY: 05/28/2019 HISTORY OF PRESENT ILLNESS: This 63 year-old found a lump on the right breast underwent prior needle placement breast biopsy that showed breast cancer. She is referred for further evaluation. PAST MEDICAL HISTORY: Chronic obstructive pulmonary disease, ectopic in the past. PAST SURGICAL HISTORY: Hysterectomy. Tubal ligation. Appendectomy. Right tube removed. Carpal tunnel surgery. MEDICATIONS: Albuterol, Sertraline, rosuvastatin, zonisamide, Trelegy Ellipta, furosemide, lamotrigine. ALLERGIES: ACETAMINOPHEN. STATINS. FAMILY HISTORY: Negative in regards to this problem. SOCIAL HISTORY: Half pack per day smoker, denies alcohol abuse. REVIEW OF SYSTEMS: Fourteen systems reviewed. No chest pain or palpitations. Other systems negative or noncontributory as above and per preadmission questionnaire. PHYSICAL EXAMINATION: GENERAL: A chronically ill female. HEENT: Sclerae nonicteric. NECK: No JVD. CHEST: Equal excursion, decreased breath sounds. CVS: Regular rate and rhythm. ABDOMEN: Soft. No peritoneal signs. EXTREMITIES: No significant edema. NEURO: Alert, oriented, moving extremities symmetrically. No gross motor deficits noted. IMPRESSION: Right breast cancer. I had a long discussion with the patient. I feel she would benefit prior needle placement right breast lumpectomy, [place] lymph node biopsy were discussed. The risks and benefits explained in detail including but not limited to bleeding or infection, risk of hematoma or seroma formation, risk of infection possibly requiring packing, failure to heal the wound, risk of involved margins possibly requiring other procedures, risk of [place] node nonvisualization and cannot be done. Risk of aches, pains, burning or numbness upper extremity, motor nerve irritation incidentally but not limited to. She understands all the above and the fact that will likely start her radiation therapy. She understands all of the above but not limited to, will consider breast conserving therapy, will proceed right lumpectomy with prior needle placement, [place] lymph node biopsy lymphoscintrigraphy.
[2019-05-28] MEDS ORDERED: Ketamine HCl 50 MG/ML ONE (10:54)
[2019-05-28] MEDS ORDERED: Versed 2 MG/2 ML Injection ONE (10:54)
[2019-05-28] MEDS ORDERED: DIPRIVAN 200 MG/20 ML IV ONE ×4 (10:54→12:55)
--- NOTE | 2019-05-28 12:06 | XRAY ---
Indication: [place] node evaluation. Right breast cancer. 4 subcutaneous injections of technetium 99 sulfur colloid totaling 1 mCi was performed around the right breast areola. Warm compress applied with delayed anterior and lateral imaging performed out to 45 minutes. Normal radiopharmaceutical activity around the injection sites. There are 2 foci of abnormal radiopharmaceutical activity in the right axilla. No other focus of abnormal radiopharmaceutical activity in the right breast or right axilla. Impression: Right breast nuclear medicine sentinel node localization demonstrates 2 foci in the right axilla. Patient was taken to surgery with hand-held probe if needed.
[2019-05-28] MEDS ORDERED: Zofran 4 MG/2 ML VIAL ONE (12:11)
[2019-05-28] MEDS ORDERED: Decadron 4 MG INJ ONE (12:11)
[2019-05-28] MEDS ORDERED: TORAdol 30 mg Injection ONE (12:11)
--- NOTE | 2019-05-28 13:33 | XRAY ---
Indication: Surgical specimen following needle wire localization. 2 specimen radiographs demonstrates mammotome clip and abnormal breast tissue present with intact jacek wires. I question if posterior margins contain suspicious microcalcifications in its entirety. Findings were reported to the surgeon with recommendation for additional posterior tissue excision.
--- NOTE | 2019-05-28 14:44 | OP ---
SURGERY DATE/TIME: 05/28/2019 1138 PREOPERATIVE DIAGNOSIS: Right breast cancer. POSTOPERATIVE DIAGNOSIS: Right breast cancer. PROCEDURES: 1) Right breast lumpectomy, partial mastectomy with prior needle placement (with bracketing technique). 2) [place] lymph node biopsy with radio lymphoscintigraphy right axilla. SURGEON: Dr. Gamaliel Rich. ICT SALES ASSISTANT: Dax Bell, Medical Student III. ANESTHESIA: MAC with 1% lidocaine local and preoperative regional block per anesthesia. ESTIMATED BLOOD LOSS: Less than 25 cc. INDICATIONS: As noted above. Risks and benefits explained in detail and not limited to and consent obtained. DESCRIPTION OF PROCEDURE AND FINDINGS: The patient is taken to the operating room. The site had been marked preoperatively. She had previously been to radiology and had nuclear injection. She had a couple of nodes that were showing up in the axilla. She had prior needle placement of bracketing technique. A little bit of wider calcifications. She had a preoperative block per anesthesia that did quite excellent job. She was taken to operating room. Prepped and draped in usual sterile fashion. After official time out and no disagreement with planned procedure in spindle-shaped fashion the indurated area in the lateral aspect of the right breast dissection carried down to what appeared to be normal appearing subcutaneous fat circumferentially taken down to the level of the chest wall underneath including both wires this was fairly wide area given the wire placement but it was necessary to go down the chest wall in effort to try to get all the calcification area. The specimen is passed off. Marked with double tie at 6, single tie at 3 passed off for specimen mammography. They called back and requested additional margins towards the chest wall. Therefore 2 to 3 mm area of fascia was then taken directly off of the pectoralis muscle and passed off. Again, there was no other visible breast tissue in this area. Specimen was sent off for pathology. As this was so thin there was no easy way to orient it but it was sent off for final pathology. There is no reason to re-x-ray this as no further deeper tissue could be taken besides muscle. At this point attention is then turned given the size of the lumpectomy and despite the bracketing technique the top edge of this the gena basin was able to be identified with Neoprobe, dissecting down the main hot [place] lymph node carefully dissected free clipping small lymphatics, arterioles and venules going into and out of this node staying directly on it. It gave a reading of about 439 on the probe reading level. It was felt the hottest #1 [place] lymph node was passed off for pathology. Good hemostasis noted. One little horseback riding instructor controlled with 3-0 Vicryl suture ligature. A little bit deeper a smaller node but a node that was giving uptake up to 279 was carefully isolated clipping, ligating with Vicryl ties and clips staying directly on the lymph node. The smaller lymph was dissected free was the second hot [place] node. The remainder was more background effect of 5 to 10 or lower teen. In the rest of axilla there did not appear to be any other isolated high uptake node that could be noted with the probe. There was no other palpable significant gena disease that could be palpated. Good hemostasis was noted. Copious amount of irrigation irrigating until clear. Again, dissection had been carried off the chest wall. There was small horseback riding instructor on chest wall that was controlled with 3-0 Vicryl suture ligature. Good hemostasis noted. The breast parenchyma was then brought back filling in the lumpectomy defect as well as possible with 3-0 Vicryl including the deeper parenchyma and superficial subcu with 3-0 Vicryl. Skin closed with 4-0 Vicryl in running subcuticular fashion. Steri-Strips and sterile dressing applied. MIHAI drain secured with PDS suture and placed to bulb suction left up in the axilla. Steri-Strips and sterile dressing applied as well as a breast binder. Compression dressing to axilla. There were no immediate complications. Finding discussed with the family/friends out in the waiting area.
[2019-05-28 15:23] VITALS: O2SAT 90
[2019-05-28 15:24] VITALS: PULSE 91
[2019-05-28 15:26] VITALS: BP 127/78
== END 2019-05-28 15:40 | disposition home or self-care (01) ==
LOC: SDC 06:00
PROVIDERS: ATTEND Surgery
DX: C50.911 Malignant neoplasm of unspecified site of right female breast (principal)
CPT/HCPCS: 19281; 19301; 36415; 38525; 76098; 76937; 78195; 88184; 88185; 88187; 88188; 88189; A9541; J0690; J1100; J1885; J2250; J2405; J2704; J2795

== ENCOUNTER 2019-07-09 11:33 | Day surgery (SDC) | payer MEDICARE ==
--- NOTE | 2019-07-09 07:58 | HP ---
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 PAST MEDICAL HISTORY: Chronic lung disease. Breast cancer. PAST SURGICAL HISTORY: Right breast lumpectomy, prior needle placement, [place] lymph node biopsy. Hysterectomy. Ectopic . Wrist surgery. Elbow surgery right side in the past. MEDICATIONS: Listed per MAR. Albuterol, Sertraline, rosuvastatin, zonisamide, Trelegy Ellipta, furosemide, lamotrigine. ALLERGIES: ERYTHROMYCIN. NYTZOL. ACETAMINOPHEN. FAMILY HISTORY: Bone cancer, heart disease. SOCIAL HISTORY: Half to quarter-pack a day smoker. Denies alcohol abuse. REVIEW OF SYSTEMS: Fourteen systems reviewed. No chest pain or palpitations. Pertinent for chronic lung disease, breast cancer. PHYSICAL EXAMINATION: GENERAL: No acute distress. HEENT: Sclerae nonicteric. NECK: No JVD. CHEST: Equal excursion, nonlabored breathing. No audible current wheezing. Decreased breath sounds bilaterally consistent with chronic lung disease. CVS: Regular rate and rhythm. ABDOMEN: Soft. EXTREMITIES: No cyanosis. NEURO: Alert, oriented, moving extremities grossly symmetrically. IMPRESSION: Breast cancer, in need of Port-A-Cath placement. I feel she is a candidate. Risks and benefits explained in detail including but not limited to bleeding or infection, risk of thrombosis or pneumothorax, risk of aches and pain possibly chronic in nature, risk of hematoma or seroma formation, risk of port or catheter fracture or failure or infection possibly requiring removal, general risk of anesthesia, deep venous thrombosis, pulmonary embolism, pneumonia, risk of cardiopulmonary event. She is agreeable to Port-A-Cath placement as an outpatient.
[~2019-07-09 11:33] MED LIST: Lactated Ringers 1,000 ML IV ONE; XYLOCAINE 1% HCL 20 ML MDV ONE
[2019-07-09] MEDS ORDERED: CEFAZOLIN 2 GM-D5W BAG** 2 GM/50 ML ML IV SCH (12:00)
[2019-07-09] MEDS ORDERED: Lactated Ringers 1,000 ML IV SCH (12:00)
[2019-07-09] MEDS ORDERED: Versed 2 MG/2 ML Injection ONE (12:21)
[2019-07-09] MEDS ORDERED: SUBLIMAZE 100 MCG/2 ML ONE (12:22)
[2019-07-09] MEDS ORDERED: DIPRIVAN 200 MG/20 ML IV ONE (12:46)
--- NOTE | 2019-07-09 13:16 | XRAY ---
Indication: Port placement. Intraoperative fluoroscopy was provided for 3 seconds. Single digital spot image submitted for interpretation demonstrates left-sided Port-A-Cath with the tip projecting over the SVC. Correlate with intraoperative findings/report.
--- NOTE | 2019-07-09 15:14 | OP ---
SURGERY DATE/TIME: 07/09/2019 1222 PREOPERATIVE DIAGNOSIS: History of right breast cancer. POSTOPERATIVE DIAGNOSIS: History of right breast cancer, need for long-term IV access for IV treatments. PROCEDURE: Tunnel Port-A-Cath placement with C-arm fluoroscopy of left subclavian vein. SURGEON: Dr. Gamaliel Rich. ANESTHESIA: MAC. 1% lidocaine local. ESTIMATED BLOOD LOSS: Minimal. INDICATIONS: As noted above. Risks and benefits explained in detail and not limited to and consent was obtained. DESCRIPTION OF PROCEDURE AND FINDINGS: The patient is taken to the operating room. MAC anesthesia introduced. After official time out and no disagreement with the planned procedure, 1% lidocaine local was infiltrated after prepping and draping in usual sterile fashion. 1% lidocaine local infiltrated in left subclavian area. 18 gauge cannulation needle inserted on first pass. Good dark nonpulsatile venous return. Guide wire passed without difficulty followed by anesthetizing the tunnel track and port pocket. Transverse incision inferior subcu. Port pocket created with aid of cautery. Port secured to the chest wall with Prolene suture x2. Catheter tunneled down from cannulation stab wound down to port pocket area. It should be noted C-arm fluoroscopy confirmed that the guide wire was down the superior vena cava. At this point dilator and break away sheath easily fed over the guide wire. Catheter fed down break away sheath. The tip pulled back in distal superior vena cava/right atrial area junction. Catheter is cut to appropriate length snapped on the port at the hub. The port aspirated dark, nonpulsatile venous return with ease, flushed with heparinized saline in usual fashion. The final film showed lung young noted to be up bilaterally. Catheter tip is in the distal superior vena cava/right atrial area junction. Port aspirated with ease and flushed with ease. It was felt that no further x-rays were necessary. Good hemostasis noted. She had been a little oozy on the skin but appeared to have good hemostasis at this point of the procedure. Subcu closed with 3-0 Vicryl, skin closed with 4-0 Vicryl. Cannulation stab wound closed with 4-0 Vicryl. Steri-Strips and sterile dressing applied. The patient tolerated the procedure well. There were no immediate complications. There was no family available out in the waiting area to discuss the findings with at the end of the procedure.
[2019-07-09 15:24] VITALS: BP 101/70; PULSE 80
[2019-07-09 15:53] VITALS: O2SAT 92
== END 2019-07-09 13:45 | disposition home or self-care (01) ==
LOC: SDC 11:33
PROVIDERS: ATTEND Surgery
DX: C50.911 Malignant neoplasm of unspecified site of right female breast (principal); Z79.899 Other long term (current) drug therapy
CPT/HCPCS: 36571; 77001; C1788; J0690; J1642; J2250; J2704; J3010

== ENCOUNTER 2019-11-13 09:22 | Emergency (ER) | payer MEDICARE ==
--- NOTE | 2019-11-13 09:53 | ERPHSYRPT ---
- History of Present Illness Time Seen by Provider: 11/13/19 09:35 Source: patient Exam Limitations: no limitations Physician History: This is a 64-year-old white female who continues to smoke tobacco and vape and presents to the emergency room with increasing shortness of breath over the last 2 days. Patient is on home O2 and wears 4 L nasal cannula of oxygen. Her typical oxygen saturation levels on 4 L is 80 to 93%. Patient has a history of breast cancer and received radiation treatment 2 days ago. Patient also has a history of CHF. Has a history of COPD. Patient does not have a fever. Last week she had a low-grade fever and was tested for the COVID-19 virus. The test returned negative. Patient states that she uses Lasix 3 times a day. Her last dose was at midnight. Patient was discharged to home approximately 1 week ago from [facility] out of [facility] for similar complaint of shortness of breath. Timing/Duration: day(s) (2) Severity of Dyspnea-Max: moderate Severity of Dyspnea-Current: moderate Possible Cause: frequent episodes Modifying Factors: Improves With: exertion Associated Symptoms: weakness Allergies/Adverse Reactions: acetaminophen [From Midol] Allergy (Severe, Verified 11/13/19 09:56) Difficulty Breathing Influenza Virus Vaccines Allergy (Severe, Verified 11/13/19 09:56) Swelling states "arm got huge pamabrom [From Midol] Allergy (Severe, Verified 11/13/19 09:56) Difficulty Breathing erythromycin base Allergy (Intermediate, Verified 11/13/19 09:56) Joint Aches Home Medications: Sertraline HCl 100 mg [Zoloft 100 MG] 100 mg PO DAILY 06/03/16 [History] Zonisamide [Zonegran] 300 mg PO BID 06/03/16 [History] lamoTRIgine [Lamotrigine] 150 mg PO BID 04/25/18 [History] Albuterol 2.5 mg/0.5 ml [PROVENTIL Solution 2.5 MG/0.5 ML] 1 ampul IH QIDPRN PRN 05/22/19 [History] Furosemide 20 mg [Lasix 20 mg] 1 tab PO DAILY 05/22/19 [History] Potassium Chloride 10 Meq Tab* [Klor Con 10 MEQ] 1 tab PO HS 05/22/19 [ History] Hx Tetanus, Diphtheria Vaccination/Date Given: Yes Hx Influenza Vaccination/Date Given: No Hx Pneumococcal Vaccination/Date Given: No Travel Risk - International Travel Have you traveled outside of the country in past 3 weeks: No Have you or anyone close to you been diagnosed with or: No Do your reside in a community with a known COVID-19 case?: Yes If Yes where:: [facility] - Coronavirus Screening Has patient experienced Coronavirus symptoms: Yes Symptoms experienced: respiratory symptoms (i.e.Cought,shortness of breath), weakness - Review of Systems Constitutional: No Symptoms Eyes: No Symptoms Ears, Nose, & Throat: No Symptoms Respiratory: Dyspnea, Dyspnea on Exertion (SANTA) Cardiac: No Symptoms Abdominal/Gastrointestinal: No Symptoms Genitourinary Symptoms: No Symptoms Musculoskeletal: No Symptoms Skin: No Symptoms Neurological: No Symptoms Psychological: No Symptoms Endocrine: No Symptoms Hematologic/Lymphatic: No Symptoms Immunological/Allergic: No Symptoms All Other Systems: Reviewed and Negative - Past Medical History Pertinent Past Medical History: Yes Neurological History: Epilepsy, Seizures ENT History: No Pertinent History Cardiac History: High Cholesterol, Other Respiratory History: COPD, Pneumonia Endocrine Medical History: No Pertinent History Musculoskeletal History: Other GI Medical History: Other History: No Pertinent History Psycho-Social History: Depression Female Reproductive Disorders: Other Other Medical History: carotid stenosis; ectopic ; Pt states she has had broken vertebrae from a fall during a seizure. - Past Surgical History Past Surgical History: Yes Neuro Surgical History: No Pertinent History Cardiac: No Pertinent History Respiratory: No Pertinent History Gastrointestinal: Appendectomy Genitourinary: No Pertinent History Musculoskeletal: Orthopedic Surgery Female Surgical History: Hysterectomy, Tubal Ligation Other Surgical History: mass removal from right axillary region, fusion of back ("cracked") "at least 30 yrs ago", ectopic - Social History Smoking Status: Current every day smoker How long have you smoked: 40 years Exposure to second hand smoke: Yes Drug Use: none Patient Lives Alone: Yes - Nursing Vital Signs Nursing Vital Signs: Initial Vital Signs Pulse Rate 96 H 11/13/19 09:40 Respiratory Rate 34 H 11/13/19 09:40 Blood Pressure 119/61 11/13/19 09:40 O2 Sat by Pulse Oximetry 66 L 11/13/19 09:40 Pain Scale Pain Intensity 0 - Physical Exam General Appearance: moderate distress, alert, anxiety, lethargy Eye Exam: PERRL/EOMI Ears, Nose, Throat Exam: hearing grossly normal, normal ENT inspection, normal pharynx Neck Exam: normal inspection, non-tender, supple, full range of motion Respiratory Exam: respiratory distress, airway intact, diminished breath sounds , No chest tenderness Cardiovascular/Chest Exam: normal heart sounds, regular rate/rhythm, murmur Abdominal/Gastrointestinal Exam: soft, normal bowel sounds, No tenderness Rectal Exam: not done Extremity Exam: pedal edema (Bilaterally to bilateral knees), swelling Neurologic Exam: alert, oriented x 3, cooperative, billing auditor II-XII nml as tested Skin Exam: normal color, warm, dry Lymphatic Exam: No adenopathy SpO2 Interpretation: hypoxic O2 Delivery: Nasal Cannula (6 L yielded a 66% oxygen saturation) - Course Nursing assessment & vital signs reviewed: Yes EKG Interpreted by Me: RATE (86), Sinus Rhythm, NORMAL INTERVALS, NORMAL QRS, Other (When compared to EKG dated May 22, 2019 there is a new indeterminate axis. There is no evidence of any acute ischemia present on the newest EKG) Ordered Tests: Active Orders 24 hr Category Date Time Status Cath [Catheter-[place] Sun] STAT Care 11/13/19 11:50 Completed EKG-ER Only STAT Care 11/13/19 09:56 Active IV Insertion STAT Care 11/13/19 09:56 Active Isolation, Initiate & Maintain Q4H Care 11/13/19 09:56 Active Pulse Oximetry (ED) STAT Care 11/13/19 09:56 Active CHEST 1 VIEW (PORTABLE) Stat Exams 11/13/19 09:57 Completed CHEST WITH CONTRAST [CT] Stat Exams 11/13/19 11:01 Completed ABG [ARTERIAL BLOOD GASES] Routine Lab 11/13/19 11:20 Completed ARTERIAL BLOOD GASES Stat Lab 11/13/19 09:56 Completed CBC W DIFF Stat Lab 11/13/19 09:45 Completed CMP Stat Lab 11/13/19 09:45 Completed CULTURE,URINE Stat Lab 11/13/19 11:50 Ordered D-DIMER QUANTITATIVE Stat Lab 11/13/19 09:45 Completed Lactic Acid Stat Lab 11/13/19 09:56 Completed Manual Differential NC Stat Lab 11/13/19 09:45 Completed NT PRO BNP Stat Lab 11/13/19 09:45 Completed PROTIME WITH INR Stat Lab 11/13/19 09:45 Completed TROPONIN Q3H Lab 11/13/19 10:00 Completed TROPONIN Q3H Lab 11/13/19 13:00 Ordered TROPONIN Q3H Lab 11/13/19 16:00 Ordered TROPONIN Q3H Lab 11/13/19 19:00 Ordered TROPONIN Q3H Lab 11/13/19 22:00 Ordered UA W/RFX UR CULTURE Stat Lab 11/13/19 11:50 Completed VENOUS BLOOD GAS Stat Lab 11/13/19 09:56 Completed BiPap/CPAP STAT RT 11/13/19 09:56 Active Respiratory Therapy Assessment DAILY RT 11/13/19 10:20 Active Medication Summary Discontinued Medications Generic Name Dose Route Start Last Admin Trade Name Freq PRN Reason Stop Dose Admin Furosemide 40 mg 11/13/19 09:56 11/13/19 10:17 Lasix 40 Mg/4 Ml IV 11/13/19 09:57 40 mg STAT ONE Administration Furosemide Confirm 11/13/19 10:16 Lasix 40 Mg/4 Ml Administered 11/13/19 10:17 Dose 40 mg .ROUTE .STK-MED ONE Lab/Rad Data: Laboratory Result Diagrams 11/13/19 09:45 11/13/19 09:45 Laboratory Results 11/13/19 11/13/19 11/13/19 Range/Units 11:50 11:20 10:00 WBC (4.0-10.5) K/mm3 RBC (4.1-5.4) M/mm3 Hgb (12.0-16.0) gm/dl Hct (35-47) % MCV (78-100) fl MCH (26-32) pg MCHC (32-36) g/dl RDW (11.5-14.0) % Plt Count (150-450) K/mm3 MPV (7.5-11.0) fl Segmented Neutrophils (36.0-66.0) % Band Neutrophils (0.0-2.0) % Lymphocytes (Manual) (24-44) % Monocytes (Manual) (0.0-12.0) % Hypochromia Platelet Estimate (NORMAL) RBC Morphology Polychromasia Anisocytosis Macrocytosis PT (9.95-12.35) SECONDS INR (0.8-3.0) D-Dimer (215-500) ng/mL Puncture Site rr pCO2 77 H* (35-45) mmHg pO2 110 H (75-100) mmHg pO2/FiO2 Ratio % Base Excess 11.3 H (-2.0-2.0) O2 Saturation 96.7 (94-100) g/dF ABG pH 7.33 L (7.35-7.45) ABG HCO3 40.6 H* (22-28) ABG O2 Sat (Measured) 99.1 (95-100) % Kailash Test YES VBG pH (7.32-7.42) VBG pCO2 at Pat Temp (42-55) mm/Hg VBG pO2 at Pat Temp (25-40) mm/Hg VBG HCO3 (22-28) meq/L VBG O2 Sat (Ayaz) (95-100) VBG Base Excess (-2.0-2.0) VBG Hemoglobin VBG Carboxyhemoglobin (0.0-6.9) % T HGB A-a Gradient 222 a/A Ratio 0.33 Hemoglobin 10.6 Carboxyhemoglobin 1.8 (0.0-6.9) % THgb Methemoglobin 0.6 L (1.4-1.5) % POC Potassium (3.5-5.1) Temperature 37.0 C POC O2 Flow Rate 60 % Vent Mode BiPAP Vent Rate 16 /MIN Inspiratory BiPAP 16 Expiratory BiPAP 8 Sodium (137-145) mmol/L Potassium 3.5 (3.5-5.1) mmol/L Chloride (98-107) mmol/L Carbon Dioxide (22-30) mmol/L Anion Gap (5-15) MEQ/L BUN (7-17) mg/dL Creatinine (0.52-1.04) mg/dL Estimated GFR ML/MIN Glucose (74-106) mg/dL Lactic Acid (0.4-2.0) Calcium (8.4-10.2) mg/dL Total Bilirubin (0.2-1.3) mg/dL AST (14-36) U/L ALT (0-35) U/L Alkaline Phosphatase (38-126) U/L Troponin I < 0.012 (0.000-0.034) ng/mL NT-Pro-B Natriuret Pep (0-900) pg/mL Serum Total Protein (6.3-8.2) g/dL Albumin (3.5-5.0) g/dL Urine Color MENDEL (YELLOW) Urine Appearance SLIGHTLY CLOUDY (CLEAR) Urine pH 6.0 (5-6) Ur Specific [place] 1.026 (1.005-1.025) Urine Protein 30 (Negative) Urine Ketones NEGATIVE (NEGATIVE) Urine Blood NEGATIVE (0-5) David/ul Urine Nitrite NEGATIVE (NEGATIVE) Urine Bilirubin NEGATIVE (NEGATIVE) Urine Urobilinogen 4 (0-1) mg/dL Ur Leukocyte Esterase NEGATIVE (NEGATIVE) Urine WBC (Auto) 3-5 (0-5) /HPF Urine RBC (Auto) 6-10 (0-2) /HPF U Epithel Cells (Auto) NONE (FEW) /HPF Urine Bacteria (Auto) RARE (NEGATIVE) /HPF Urine Mucus (Auto) SLIGHT (NEGATIVE) /HPF Urine Culture Reflexed ORDERED SEPARATELY (NO) Urine Glucose NEGATIVE (NEGATIVE) mg/dL 11/13/19 11/13/19 11/13/19 Range/Units 09:56 09:45 09:45 WBC (4.0-10.5) K/mm3 RBC (4.1-5.4) M/mm3 Hgb (12.0-16.0) gm/dl Hct (35-47) % MCV (78-100) fl MCH (26-32) pg MCHC (32-36) g/dl RDW (11.5-14.0) % Plt Count (150-450) K/mm3 MPV (7.5-11.0) fl Segmented Neutrophils (36.0-66.0) % Band Neutrophils (0.0-2.0) % Lymphocytes (Manual) (24-44) % Monocytes (Manual) (0.0-12.0) % Hypochromia Platelet Estimate (NORMAL) RBC Morphology Polychromasia Anisocytosis Macrocytosis PT 10.9 (9.95-12.35) SECONDS INR 0.97 (0.8-3.0) D-Dimer 1040 H* (215-500) ng/mL Puncture Site port pCO2 76 H* (35-45) mmHg pO2 36 L* (75-100) mmHg pO2/FiO2 Ratio 70.0 % Base Excess 11.8 H (-2.0-2.0) O2 Saturation 65.6 L (94-100) g/dF ABG pH 7.34 L (7.35-7.45) ABG HCO3 41.0 H* (22-28) ABG O2 Sat (Measured) 67.5 L (95-100) % Kailash Test na VBG pH 7.34 (7.32-7.42) VBG pCO2 at Pat Temp 76 H* (42-55) mm/Hg VBG pO2 at Pat Temp 36 (25-40) mm/Hg VBG HCO3 41.0 H* (22-28) meq/L VBG O2 Sat (Ayaz) 67.5 L (95-100) VBG Base Excess 11.8 H (-2.0-2.0) VBG Hemoglobin 11.0 VBG Carboxyhemoglobin 1.7 (0.0-6.9) % T HGB A-a Gradient 368 a/A Ratio 0.09 Hemoglobin 11.0 Carboxyhemoglobin 1.7 (0.0-6.9) % THgb Methemoglobin 1.2 L (1.4-1.5) % POC Potassium 3.7 (3.5-5.1) Temperature 37.0 C POC O2 Flow Rate 70 % Vent Mode Vent Rate /MIN Inspiratory BiPAP Expiratory BiPAP Sodium 147 H (137-145) mmol/L Potassium 3.7 3.5 (3.5-5.1) mmol/L Chloride 100 (98-107) mmol/L Carbon Dioxide 39 H (22-30) mmol/L Anion Gap 11.2 (5-15) MEQ/L BUN 15 (7-17) mg/dL Creatinine 0.74 (0.52-1.04) mg/dL Estimated GFR > 60.0 ML/MIN Glucose 131 H (74-106) mg/dL Lactic Acid 0.9 (0.4-2.0) Calcium 8.9 (8.4-10.2) mg/dL Total Bilirubin 0.40 (0.2-1.3) mg/dL AST 31 (14-36) U/L ALT 28 (0-35) U/L Alkaline Phosphatase 114 (38-126) U/L Troponin I (0.000-0.034) ng/mL NT-Pro-B Natriuret Pep 500 (0-900) pg/mL Serum Total Protein 7.5 (6.3-8.2) g/dL Albumin 3.7 (3.5-5.0) g/dL Urine Color (YELLOW) Urine Appearance (CLEAR) Urine pH (5-6) Ur Specific [place] (1.005-1.025) Urine Protein (Negative) Urine Ketones (NEGATIVE) Urine Blood (0-5) David/ul Urine Nitrite (NEGATIVE) Urine Bilirubin (NEGATIVE) Urine Urobilinogen (0-1) mg/dL Ur Leukocyte Esterase (NEGATIVE) Urine WBC (Auto) (0-5) /HPF Urine RBC (Auto) (0-2) /HPF U Epithel Cells (Auto) (FEW) /HPF Urine Bacteria (Auto) (NEGATIVE) /HPF Urine Mucus (Auto) (NEGATIVE) /HPF Urine Culture Reflexed (NO) Urine Glucose (NEGATIVE) mg/dL 11/13/19 Range/Units 09:45 WBC 8.0 (4.0-10.5) K/mm3 RBC 3.71 L (4.1-5.4) M/mm3 Hgb 10.5 L (12.0-16.0) gm/dl Hct 37.9 (35-47) % MCV 102.2 H (78-100) fl MCH 28.3 (26-32) pg MCHC 27.7 L (32-36) g/dl RDW 17.0 H (11.5-14.0) % Plt Count 290 (150-450) K/mm3 MPV 9.8 (7.5-11.0) fl Segmented Neutrophils 86 H (36.0-66.0) % Band Neutrophils 1 (0.0-2.0) % Lymphocytes (Manual) 10 L (24-44) % Monocytes (Manual) 3 (0.0-12.0) % Hypochromia 2+ Platelet Estimate NORMAL (NORMAL) RBC Morphology ABNORMAL Polychromasia 2+ Anisocytosis 1+ Macrocytosis 2+ PT (9.95-12.35) SECONDS INR (0.8-3.0) D-Dimer (215-500) ng/mL Puncture Site pCO2 (35-45) mmHg pO2 (75-100) mmHg pO2/FiO2 Ratio % Base Excess (-2.0-2.0) O2 Saturation (94-100) g/dF ABG pH (7.35-7.45) ABG HCO3 (22-28) ABG O2 Sat (Measured) (95-100) % Kailash Test VBG pH (7.32-7.42) VBG pCO2 at Pat Temp (42-55) mm/Hg VBG pO2 at Pat Temp (25-40) mm/Hg VBG HCO3 (22-28) meq/L VBG O2 Sat (Ayaz) (95-100) VBG Base Excess (-2.0-2.0) VBG Hemoglobin VBG Carboxyhemoglobin (0.0-6.9) % T HGB A-a Gradient a/A Ratio Hemoglobin Carboxyhemoglobin (0.0-6.9) % THgb Methemoglobin (1.4-1.5) % POC Potassium (3.5-5.1) Temperature C POC O2 Flow Rate % Vent Mode Vent Rate /MIN Inspiratory BiPAP Expiratory BiPAP Sodium (137-145) mmol/L Potassium (3.5-5.1) mmol/L Chloride (98-107) mmol/L Carbon Dioxide (22-30) mmol/L Anion Gap (5-15) MEQ/L BUN (7-17) mg/dL Creatinine (0.52-1.04) mg/dL Estimated GFR ML/MIN Glucose (74-106) mg/dL Lactic Acid (0.4-2.0) Calcium (8.4-10.2) mg/dL Total Bilirubin (0.2-1.3) mg/dL AST (14-36) U/L ALT (0-35) U/L Alkaline Phosphatase (38-126) U/L Troponin I (0.000-0.034) ng/mL NT-Pro-B Natriuret Pep (0-900) pg/mL Serum Total Protein (6.3-8.2) g/dL Albumin (3.5-5.0) g/dL Urine Color (YELLOW) Urine Appearance (CLEAR) Urine pH (5-6) Ur Specific [place] (1.005-1.025) Urine Protein (Negative) Urine Ketones (NEGATIVE) Urine Blood (0-5) David/ul Urine Nitrite (NEGATIVE) Urine Bilirubin (NEGATIVE) Urine Urobilinogen (0-1) mg/dL Ur Leukocyte Esterase (NEGATIVE) Urine WBC (Auto) (0-5) /HPF Urine RBC (Auto) (0-2) /HPF U Epithel Cells (Auto) (FEW) /HPF Urine Bacteria (Auto) (NEGATIVE) /HPF Urine Mucus (Auto) (NEGATIVE) /HPF Urine Culture Reflexed (NO) Urine Glucose (NEGATIVE) mg/dL - Progress Progress: improved, re-examined Air Movement: fair Progress Note: 11/13/19 11:59 Chest x-ray shows new onset cardiomegaly. There is a large right pleural effusion present with atelectasis. There is evidence of fluid overload. 11/13/19 12:47 CAT scan of the chest with IV contrast reveals negative pulmonary emboli. There is new cardiomegaly with pulmonary edema and bilateral pleural effusions. A superimposed pneumonia is not completely excluded 11/13/19 13:03 Patient states she is clinically improved. She still on the BiPAP and much more stabilized. He is much more comfortable breathing. I spoke with Dr. Luna who is the emergency physician at [facility] emergency department. This was after discussion with the patient's roll sheeting cutter Dr. Doug De La Cruz. I reviewed the patient's history, condition, results of the patient's work-up here in the emergency department with both physicians. Dr. Luna accepts the patient for transfer. Blood Culture(s) Obtained: Yes Antibiotics given: No Counseled pt/family regarding: lab results, diagnosis, need for follow-up, rad results - Departure Departure Disposition: Transfer Clinical Impression: Hypoxia, Pulmonary edema, Congestive heart failure, Bilateral pleural effusion Condition: Serious Critical Care Time: Yes Critical Care Time(excluding separately billable procedures): Critical 75-104 mins Referrals: SOPHIA BERNARDO [Primary Care Provider] - Instructions: Heart Failure
[2019-11-13] MEDS ORDERED: Lasix 40 MG/4 ML IV ONE (09:56)
[2019-11-13 10:08] LABS: Hematocrit 37.9 % (35-47); Hemoglobin 10.5 gm/dl (12.0-16.0); Mean Cell Volume 102.2 fl (78-100); Mean Corpuscular Hemoglobin 28.3 pg (26-32); Mean Corpuscular Hgb Concent. 27.7 g/dl (32-36); Mean Platelet Volume 9.8 fl (7.5-11.0); Platelet Count 290 K/mm3 (150-450); Red Blood Count 3.71 M/mm3 (4.1-5.4)
[2019-11-13] MEDS ORDERED: Lasix 40 MG/4 ML ONE (10:16)
[2019-11-13 10:17] LABS: A-aADO2 368; ABG POTASSIUM 3.7 (3.5-5.1); ARTERIAL BLD GAS O2 SATURATION 67.5 % (95-100); ARTERIAL BLOOD GAS BASE EXCESS 11.8 (-2.0-2.0); ARTERIAL BLOOD GAS FIO2 70 %; ARTERIAL BLOOD GAS pH 7.34 (7.35-7.45); CARBOXYHEMOGLOBIN 1.7 % THgb (0.0-6.9); HGB O2 SAT 65.6 g/dF (94-100); Lactic Acid 0.9 (0.4-2.0); Methhemoglobin 1.2 % (1.4-1.5); VBG BASE EXCESS 11.8 (-2.0-2.0); VBG CARBOXYHEMOGLOBIN 1.7 % T HGB (0.0-6.9); VBG O2 SATURATION 67.5 (95-100); VBG PO2 36 mm/Hg (25-40); VBG POTASSIUM 3.7 (3.5-5.1); VBG pH 7.34 (7.32-7.42); paO2 pAO1 0.09
[2019-11-13 10:18] LABS: ARTERIAL BLOOD GAS PCO2 76 mmHg (35-45); ARTERIAL BLOOD GAS PO2 36 mmHg (75-100); VBG PCO2 76 mm/Hg (42-55)
[2019-11-13 10:22] LABS: ALBUMIN 3.7 g/dL (3.5-5.0); ALKALINE PHOSPHATASE 114 U/L (38-126); ANION GAP 11.2 MEQ/L (5-15); BLOOD UREA NITROGEN 15 mg/dL (7-17); CHLORIDE 100 mmol/L (98-107); Calcium 8.9 mg/dL (8.4-10.2); Carbon Dioxide 39 mmol/L (22-30); Creatinine 1 0.74 mg/dL (0.52-1.04); Glucose 131 mg/dL (74-106); INR 0.97 (0.8-3.0); NT PRO BNP 500 pg/mL (0-900); PROTIME 10.9 SECONDS (9.95-12.35); Potassium 3.5 mmol/L (3.5-5.1); SGOT/AST 31 U/L (14-36); SGPT/ALT 28 U/L (0-35); SODIUM 147 mmol/L (137-145); Total Protein 7.5 g/dL (6.3-8.2)
--- NOTE | 2019-11-13 10:46 | XRAY ---
Indication: Short of breath. Comparison: April 25, 2018. Portable chest demonstrates new cardiomegaly, large right effusion/atelectasis, small left effusion with adjacent infiltrate/atelectasis concerning for cardiac decompensation/fluid overload. Superimposed pneumonia not completely excluded. New left Port-A-Cath in situ. Bony thorax intact again with T10/T11 kyphoplasty.
[2019-11-13 11:06] LABS: ANISOCYTOSIS 1+; BAND 1 % (0.0-2.0); Hypochromia 2+; Lymphocytes 10 % (24-44); Macrocytosis 2+; Monocyte 3 % (0.0-12.0); Neutrophils 86 % (36.0-66.0); Platelet Estimate NORMAL (NORMAL); Total Cells Counted 100
[2019-11-13 11:07] LABS: Polychromasia 2+
[2019-11-13 11:35] LABS: A-aADO2 222; ABG HEMOGLOBIN 10.6; ABG POTASSIUM 3.5 (3.5-5.1); ARTERIAL BLD GAS O2 SATURATION 99.1 % (95-100); ARTERIAL BLOOD GAS BASE EXCESS 11.3 (-2.0-2.0); ARTERIAL BLOOD GAS FIO2 60 %; ARTERIAL BLOOD GAS PO2 110 mmHg (75-100); ARTERIAL BLOOD GAS VENT MODE BiPAP; ARTERIAL BLOOD GAS pH 7.33 (7.35-7.45); CARBOXYHEMOGLOBIN 1.8 % THgb (0.0-6.9); HCO3- 40.6 (22-28); HGB O2 SAT 96.7 g/dF (94-100); Methhemoglobin 0.6 % (1.4-1.5); paO2 pAO1 0.33
[2019-11-13 11:36] LABS: ABG SITE rr; ALLEN TEST OK? YES; ARTERIAL BLOOD GAS PCO2 77 mmHg (35-45); ARTERIAL BLOOD GAS VENT RATE 16 /MIN
[2019-11-13 12:07] LABS: Appearance SLIGHTLY CLOUDY (CLEAR); Bacteria RARE /HPF (NEGATIVE); Bilirubin NEGATIVE (NEGATIVE); Blood NEGATIVE Ery/ul (0-5); Glucose NEGATIVE (NEGATIVE); Ketones NEGATIVE (NEGATIVE); Leukocyte Esterase NEGATIVE (NEGATIVE); Mucus SLIGHT /HPF (NEGATIVE); Nitrite NEGATIVE (NEGATIVE); Protein,Urine Dip 30 (Negative); Specific Gravity 1.026 (1.005-1.025); Urobilinogen 4 mg/dL (0-1)
--- NOTE | 2019-11-13 12:43 | XRAY ---
Indication: Short of breath. Elevated d-dimer. Multiple contiguous axial images obtained through the chest using 80 cc Isovue 370 contrast and PE protocol. Comparison: April 25, 2018. There is good opacification of the pulmonary arteries to include the lobar and segmental branches. Again no filling defect/pulmonary embolus. Heart is again enlarged. New left Port-A-Cath with tip in the SVC. Aorta again demonstrates minimal calcifications without aneurysm/dissection. Stable subcarinal and left infrahilar calcified nodes. Also stable distal esophageal circumferential wall thickening again possible esophagitis. Lungs demonstrates new pulmonary edema with large right effusion with right middle/right lower lobe compressive atelectasis occupying at least 75% of the right hemithorax and small left effusion/atelectasis. Stable lingular calcified granuloma. Bony thorax intact again with previous T10/T11 kyphoplasty. Limited upper abdomen again demonstrates fatty liver, hepatic/splenic calcified granulomas, renal cysts, heterogeneous right adrenal gland mass, and left adrenal gland hypertrophy. Impression: 1. Continued negative for pulmonary embolus. 2. New cardiomegaly, pulmonary edema, and bilateral pleural effusions as detailed favoring cardiac decompensation/CHF. Superimposed pneumonia not completely excluded. 3. Stable distal esophageal wall thickening again concerning for esophagitis, fatty liver, large right adrenal mass, left adrenal hypertrophy, renal cysts, chronic bony findings, and evidence for old granulomatous disease.
[2019-11-13 13:27] VITALS: BP 112/79; PULSE 92; O2SAT 96
== END 2019-11-13 13:40 | disposition short-term general hospital (02) ==
LOC: ED 09:22
DX: R07.9 Chest pain, unspecified (principal); I25.10 Atherosclerotic heart disease of native coronary artery without angina pectoris; I10 Essential (primary) hypertension; I25.2 Old myocardial infarction; I50.9 Heart failure, unspecified; J44.9 Chronic obstructive pulmonary disease, unspecified; G47.30 Sleep apnea, unspecified; F51.9 Sleep disorder not due to a substance or known physiological condition, unspecified; Z79.899 Other long term (current) drug therapy; Z86.73 Personal history of transient ischemic attack (TIA), and cerebral infarction without residual deficits; Z72.0 Tobacco use
CPT/HCPCS: 36000; 36415; 36600; 51702; 71045; 71260; 80053; 81001; 82375; 82803; 82805; 83605; 83880; 84484; 85025; 85379; 85610; 87086; 93005; 94002; 94760; 96374; 99285; 99291; 99292; J1940

== ENCOUNTER 2021-06-29 09:42 | Day surgery (SDC) | payer MEDICARE ==
--- NOTE | 2021-06-29 08:35 | HP ---
DATE OF SURGERY: 06/29/2021 HISTORY OF PRESENT ILLNESS: The patient is a 66-year-old with last colonoscopy ten years ago and had some polyps. No bloody stools. No change in bowel movements. No pain. Family history negative for colon cancer. Negative for history of colitis. She is in need of screening colonoscopy. She did have a CT scan a little bit of esophageal wall thickening. She also needs to have upper endoscopy to evaluate for esophagitis or other etiology. PAST MEDICAL HISTORY: Seizures, epilepsy, transient ischemic attack, chronic obstructive pulmonary disease, breast cancer in the past. PAST SURGICAL HISTORY: Appendectomy. Hysterectomy. Tubal ligation. Back surgery. Knee surgery. Carpal tunnel surgery. Lumpectomy [place] node. Port placed in the past. MEDICATIONS: ALLERGIES: ACETAMINOPHEN. PAMABROM. INFLUENZA VIRUS VACCINES. FAMILY HISTORY: Bone cancer. Heart disease. SOCIAL HISTORY: Denies alcohol abuse. REVIEW OF SYSTEMS: Fourteen systems reviewed. No chest pain or palpitations. Other systems negative or noncontributory as above and per preadmission questionnaire. PHYSICAL EXAMINATION: GENERAL: No acute distress. HEENT: Sclerae nonicteric. NECK: No JVD. CHEST: Clear to auscultation. CVS: Regular rate and rhythm. ABDOMEN: Soft. No peritoneal signs. EXTREMITIES: No significant edema. NEURO: Alert, oriented, moving extremities symmetrically. RECTAL: Deferred timed to endoscopy exam. PSYCH: Appropriate mood and affect. IMPRESSION: History of polyps, last colonoscopy ten years ago and in need of follow up screening colonoscopy. The patient had a CT scan that showed some esophageal wall thickening. She is in need of upper endoscopy to evaluate for esophagitis, neoplasia versus normal variation of esophagus but not limited to. Risks and benefits explained in detail including but not limited to bleeding or infection, risk of bowel injury or perforation possibly requiring open procedure, risk of missed or nondiagnosis or incomplete exam possibly requiring barium enema, other studies or procedures, general risk of anesthesia or sedation, risk of bowel prep but not limited to, consent obtained. She understands and agrees to the planned procedure and will proceed with EGD and colonoscopy as an outpatient.
[~2021-06-29 09:42] MED LIST changes: -Lactated Ringers 1,000 ML IV ONE; +Lactated Ringers 1,000 ML IV SCH; -XYLOCAINE 1% HCL 20 ML MDV ONE
[2021-06-29] MEDS ORDERED: Lactated Ringers 1,000 ML IV ONE (09:51)
[2021-06-29] MEDS ORDERED: Versed 2 MG/2 ML Injection ONE (11:55)
[2021-06-29] MEDS ORDERED: DIPRIVAN 200 MG/20 ML IV ONE ×2 (11:55→12:28)
[2021-06-29 13:56] VITALS: O2SAT 94
[2021-06-29 14:23] VITALS: BP 99/75; PULSE 99
--- NOTE | 2021-06-30 08:44 | OP ---
SURGERY DATE/TIME: 06/29/2021 1200 PREOPERATIVE DIAGNOSES: 1) History of thickening of esophagus on CT scan, need for upper endoscopy. 2) History of polyps, need for follow up screening colonoscopy. POSTOPERATIVE DIAGNOSES: 1) ASA Class III. 2) Mild gastritis. 3) Small gastric polyp. 4) Small raised area versus inflammation or polyp duodenum. 5) No evidence of gross mass in the esophagus. No erosions. Random biopsies taken for path. 6) Multiple colon polyp. 7) Diverticulosis. 8) Fair bowel prep. PROCEDURES: 1) EGD with cold biopsy of small bowel to evaluate for celiac sprue. 2) Cold biopsy body of the raised area duodenum to evaluate for polyp versus inflammation. 3) Cold biopsy gastric polyp. 4) Cold biopsy of antrum to evaluate for Helicobacter pylori. 5) Random cold biopsy distal mid esophagus to evaluate for path given history of thickened esophagus on CT scan. No gross mass. No erosions or ulcers. 6) Colonoscopy to cecum. 7) Random cold biopsies of prominent ileocecal valve, question fatty infiltration. 8) Cold biopsy mucosa over question of two or three submucosal lipomas ascending colon. 9) Hot snare polypectomy of two or three separate polyps ascending colon removed with hot snare polypectomy. 10) Hot snare polypectomy of a group of two polyps on a fold almost contiguous with ink spot tattooing of the location distal ascending colon/hepatic flexure. 11) Hot snare polypectomy sigmoid colon polyp x3 or 4. 12) Hot biopsy polypectomy additional small sigmoid colon polyp. 13) Hot snare polypectomy of rectal polyp. SURGEON: Dr. Gamaliel Rich. ANESTHESIA: MAC. ESTIMATED BLOOD LOSS: Minimal. INDICATIONS: As noted above. Risks and benefits explained in detail and not limited to and consent obtained. DESCRIPTION OF PROCEDURE AND FINDINGS: The patient is taken to the endoscopy room. MAC anesthesia induced. Bite block positioned. Video gastroscope easily passed down the esophagus through the patent pylorus to third portion of duodenum. There was a little bit of inflammation in the duodenum. Cold biopsy taken to evaluate for celiac sprue. There was one area that was unclear whether it was polyp reaction or not. Cold biopsy taken. Good hemostasis noted. Scope pulled back in the stomach. She did have some gastritis. Cold biopsy taken in the antrum for Helicobacter pylori. There was a small gastric polyp that was removed with cold biopsy forceps. Good hemostasis noted. On retroflex the gastroesophageal junction snug against the scope. No signs of any significant hiatal hernia on endoscopic view. There were no signs of any ulcers. Scope pulled back. Gastroesophageal junction 40 cm. Z-line was fairly crisp. There was just a slight pinkness of the esophagus but no evidence of any erosion. No evidence of ulcer or bryant masses. Cold biopsy taken lower part of the esophagus. There was a little bit of some foamy white debris in mid esophagus. No evidence of mass. Cold biopsy taken to evaluate for path to rule out yeast infection or other etiology versus normal variation. Good hemostasis noted. The scope is withdrawn. Attention was then turned to colonoscopy. Digital rectal exam did not reveal any rectal masses. Video colonoscope inserted and passed up through the very tortuous sigmoid, descending, transverse, ascending colon around to the cecum. Photo documented the appendiceal orifice and ileocecal valve. The prep overall is fair. Liquidy, semi-solid stool throughout the colon on exam. Fair limited site. A cold biopsy taken ileocecal valve looked like fatty infiltrated as well as two or three what seemed to be submucosal lipomatous densities that were nonobstructing. The mucosa was biopsied over the top with cold biopsy forceps. There were two or three separate ascending colon polyps removed with hot snare polypectomy. These ranged 4 to 5 mm in size. There were two polyps that were directly adjacent to each other fold in the distal ascending colon. These were removed with two separate hot snare. As they were nearly contiguous, it was felt that she would probably benefit from short term follow up colonoscopy down the road to re-evaluate the area. Ink spot tattooing of the location was noted. Specimens were sent. One small other polyp was removed with hot biopsy forceps. Good hemostasis noted. The scope is slowly and carefully withdrawn. She did have some mild diverticulosis in the left colon. In the sigmoid colon there was four smaller polyps removed with hot snare polypectomy. One was removed with hot biopsy forceps. Another polyp about 4 mm in size removed in the rectum with hot snare polypectomy. Good hemostasis noted. Findings discussed with the family out in the waiting area. I will see her back in the office in the next week or two to discuss the findings.
== END 2021-06-29 14:15 | disposition home or self-care (01) ==
LOC: SDC 09:42
PROVIDERS: ATTEND Surgery
DX: Z12.11 Encounter for screening for malignant neoplasm of colon (principal); Z09 Encounter for follow-up examination after completed treatment for conditions other than malignant neoplasm; Z86.010 Personal history of colon polyps; K57.30 Diverticulosis of large intestine without perforation or abscess without bleeding; K29.70 Gastritis, unspecified, without bleeding; Z79.899 Other long term (current) drug therapy; D12.2 Benign neoplasm of ascending colon; D12.5 Benign neoplasm of sigmoid colon; D13.2 Benign neoplasm of duodenum
CPT/HCPCS: 88305; J2250; J2704

== ENCOUNTER 2023-08-20 17:24 | Inpatient (IN) | payer MEDICARE ==
[2023-08-20] MEDS ORDERED: Sodium Chloride 0.9% 1000 ML 1,000 ML IV STA (17:40)
[2023-08-20] MEDS ORDERED: DUONEB 0.5-3 MG/3 ml Neb IH ONE ×4 (17:40→19:26)
[2023-08-20] MEDS ORDERED: Sodium Chloride 0.9% 1000 ML 1,000 ML ONE (17:51)
--- NOTE | 2023-08-20 18:01 | ERPHSYRPT ---
- History of Present Illness Time Seen by Provider: 08/20/23 17:57 Source: patient Exam Limitations: no limitations Patient Subjective Stated Complaint: C/O SOB for a few days with a fever. Reports a productive cough; yellow sputum. Triage Nursing Assessment: Patient arrived by ambulance. She is alert and oriented. SOB noted with minimal exertion. Patient is unable to speak in full sentences related to SOB. Skin is hot to touch. Patient sating in mid 90s with 02 @ 5L per N/C; normally wears 3L at home. Nose is dusky. Expiratory wheezes present. Left lung noted to have less air flow/more diminished than right. Right lung is coarse. Non-productive cough noted during assessment. Physician History: Patient is 68-year-old female with significant past medical history of depression and pneumonia started having a fever chills shortness of breath with mucopurulent sputum for last 2 to 3 days. She started running high-grade fever around 100 203 degree fever with chills or she came to the emergency room. She states that she has a same type of symptoms couple years ago and at that time she ended up with severe pneumonia so at this time she does not want to get late and she came to the emergency room immediately. Timing/Duration: day(s) (2-3 days) Severity of Dyspnea-Max: moderate Severity of Dyspnea-Current: moderate Possible Cause: occasional episodes Associated Symptoms: cough, wheezing, chills, painful breathing, productive cough, No hemoptysis, No calf pain, No dizziness Allergies/Adverse Reactions: acetaminophen [From Midol] Allergy (Severe, Verified 08/20/23 17:32) Difficulty Breathing Influenza Virus Vaccines Allergy (Severe, Verified 06/29/21 10:22) Swelling states "arm got huge pamabrom [From Midol] Allergy (Severe, Verified 08/20/23 17:32) Difficulty Breathing Home Medications: Sertraline HCl 100 mg [Zoloft 100 MG] 100 mg PO DAILY 06/03/16 [History] Zonisamide [Zonegran] 300 mg PO BID 06/03/16 [History] lamoTRIgine [Lamotrigine] 150 mg PO BID 04/25/18 [History] Primidone [Mysoline] 50 mg PO BID 06/22/21 [History] Metolazone 2.5 mg [Zaroxolyn 2.5 MG] 1 tab PO WEEKLY 08/20/23 [History] Rosuvastatin Calcium 1 tab PO DAILY 08/20/23 [History] Hx Tetanus, Diphtheria Vaccination/Date Given: Yes Hx Influenza Vaccination/Date Given: No Hx Pneumococcal Vaccination/Date Given: No Immunizations Up to Date: Yes Travel Risk - International Travel Have you traveled outside of the country in past 3 weeks: No - Coronavirus Screening Are you exhibiting any of the following symptoms?: Yes Symptoms: Fever, Cough: New Onset, Shortness of Breath Close contact with a COVID-19 positive Pt in past 14-21 Days: No - Vaccine Status Have you recieved a Covid-19 vaccination: No - Review of Systems Constitutional: Fever, Chills Eyes: No Symptoms Ears, Nose, & Throat: No Symptoms Respiratory: Cough, Dyspnea, Dyspnea on Exertion (SANTA), Wheezing Cardiac: No Chest Pain, No Edema, No Syncope Abdominal/Gastrointestinal: No Abdominal Pain, No Nausea, No Vomiting, No Diarrhea Genitourinary Symptoms: No Dysuria Musculoskeletal: No Back Pain, No Neck Pain Skin: No Rash Neurological: No Dizziness, No Focal Weakness, No Sensory Changes Psychological: No Symptoms Endocrine: No Symptoms All Other Systems: Reviewed and Negative - Past Medical History Pertinent Past Medical History: Yes Neurological History: Epilepsy, Stroke ENT History: No Pertinent History Cardiac History: Other Respiratory History: COPD, Other Endocrine Medical History: No Pertinent History Musculoskeletal History: Osteoarthritis GI Medical History: Other History: No Pertinent History Psycho-Social History: Depression Female Reproductive Disorders: Other Other Medical History: PATIENT IS ON 3L O2 AT ALL TIMES. R BREAST CA, L EYE TOP OF VISION GONE. R OCCLUDED CAROTID ARTERY. - Past Surgical History Past Surgical History: Yes Neuro Surgical History: No Pertinent History Cardiac: No Pertinent History Respiratory: No Pertinent History Gastrointestinal: Appendectomy Genitourinary: No Pertinent History Musculoskeletal: Orthopedic Surgery Female Surgical History: Hysterectomy, Tubal Ligation Other Surgical History: mass removal from right axillary region, fusion of back ("cracked") "at least 30 yrs ago", ectopic . Hx of left port that has been removed. - Social History Smoking Status: Current every day smoker How long have you smoked: 53 years Exposure to second hand smoke: Yes Drug Use: none Patient Lives Alone: Yes - Nursing Vital Signs Nursing Vital Signs: Initial Vital Signs Blood Pressure 100/59 08/20/23 17:30 Pain Scale Pain Intensity 0 - Physical Exam General Appearance: no apparent distress, alert Eye Exam: PERRL/EOMI Neck Exam: normal inspection, supple Respiratory Exam: diminished breath sounds, crackles/rales, rhonchi, wheezing Cardiovascular/Chest Exam: normal heart sounds, regular rate/rhythm Abdominal/Gastrointestinal Exam: soft, No tenderness, No distention, No mass Extremity Exam: non-tender, normal range of motion, normal inspection, no calf tenderness, no pedal edema Neurologic Exam: alert, oriented x 3, cooperative, charger operator II-XII nml as tested, sensation nml, No motor deficits Skin Exam: normal color, warm, No dry SpO2 Interpretation: normal SpO2: 95 O2 Delivery: Room Air - Course Nursing assessment & vital signs reviewed: Yes EKG Interpreted by Me: Sinus Rhythm - Radiology Exams Chest X-ray Interpretation: Reviewed by me (right middle and lower lobe pneumonia) Ordered Tests: Active Orders 24 hr Category Date Time Status Lawn Care Technician STAT Care 08/20/23 17:41 Active EKG-ER Only STAT Care 08/20/23 17:50 Active IV Insertion STAT Care 08/20/23 17:41 Active IV Insertion-2nd Peripheral STAT Care 08/20/23 18:06 Active Oxygen-ED Only NON-REBREATHER 100% Care 08/20/23 19:23 Active Oxygen-ED Only Nasal Cannula 2 lpm Care 08/20/23 17:40 Active Pulse Oximetry (ED) STAT Care 08/20/23 17:41 Active CHEST 2 VIEWS (PA AND LAT) Stat Exams 08/20/23 17:41 Taken BLOOD CULTURE Stat Lab 08/20/23 18:15 Received CBC W DIFF Stat Lab 08/20/23 18:00 Completed CMP Stat Lab 08/20/23 18:00 Completed CULTURE,URINE Stat Lab 08/20/23 18:15 Received Lactic Acid Stat Lab 08/20/23 18:00 Completed MAGNESIUM Stat Lab 08/20/23 18:00 Completed NT PRO BNPII Stat Lab 08/20/23 18:00 Completed UA W/RFX UR CULTURE Stat Lab 08/20/23 18:15 Completed Respiratory Therapy Assessment DAILY RT 08/20/23 17:54 Active Transfer Order Routine Transfer 08/20/23 Ordered Medication Summary Generic Name Dose Route Start Last Admin Trade Name Freq PRN Reason Stop Dose Admin Azithromycin 500 mg in 250 mls @ 250 mls/hr 08/20/23 18:31 08/20/23 18:51 Zithromax 500 Mg/ 250 Ml Nacl Premix IV 08/20/23 19:30 250 mls/hr STAT STA 250 mls/hr Administration Discontinued Medications Generic Name Dose Route Start Last Admin Trade Name Jason PRN Reason Stop Dose Admin Albuterol/Ipratropium 3 ml 08/20/23 17:40 08/20/23 17:50 Ipratropium/Albuterol Sulfate 3 Ml Ampul.Neb IH 08/20/23 17:41 3 ml STAT ONE Administration Albuterol/Ipratropium Confirm 08/20/23 17:48 Ipratropium/Albuterol Sulfate 3 Ml Ampul.Neb Administered 08/20/23 17:49 Dose 3 ml IH .STK-MED ONE Albuterol/Ipratropium 3 ml 08/20/23 19:23 Ipratropium/Albuterol Sulfate 3 Ml Ampul.Neb IH 08/20/23 19:24 STAT ONE Methylprednisolone Sodium 0 mg 08/20/23 19:23 Succinate 125 mg/ Sterile IV 08/20/23 19:24 Water 2 ml STAT ONE Sodium Chloride 1,000 mls @ 999 mls/hr 08/20/23 17:40 08/20/23 18:14 Sodium Chloride 0.9% 1000 Ml IV 08/20/23 18:40 999 mls/hr .Q1H1M STA Administration Sodium Chloride Confirm 08/20/23 17:51 Sodium Chloride 0.9% 1000 Ml Administered 08/20/23 17:52 Dose 1,000 mls @ ud .ROUTE .STK-MED ONE Ceftriaxone Sodium 1 gm in 100 mls @ 200 mls/hr 08/20/23 18:31 08/20/23 18:45 Rocephin 1 Gm / 100 Ml Nacl IV 08/20/23 19:00 200 mls/hr STAT ONE 200 mls/hr Administration Azithromycin Confirm 08/20/23 18:45 Zithromax 500 Mg/ 250 Ml Nacl Premix Administered 08/20/23 18:46 Dose 500 mg in 250 mls @ ud IV .STK-MED ONE Ceftriaxone Sodium Confirm 08/20/23 18:45 Rocephin 1 Gm / 100 Ml Nacl Administered 08/20/23 18:46 Dose 1 gm in 100 mls @ ud IV .STK-MED ONE Oseltamivir Phosphate 75 mg 08/20/23 18:59 08/20/23 19:04 Oseltamivir 75 Mg Cap PO 08/20/23 19:00 75 mg STAT ONE Administration Oseltamivir Phosphate Confirm 08/20/23 19:02 Oseltamivir 75 Mg Cap Administered 08/20/23 19:03 Dose 75 mg PO .K-MED ONE Lab/Rad Data: Laboratory Result Diagrams 08/20/23 18:00 08/20/23 18:00 Laboratory Results 08/20/23 08/20/23 08/20/23 Range/Units 18:15 18:00 18:00 WBC (4.0-10.5) x10^3/uL RBC (4.1-5.4) x10^6/uL Hgb (12.0-16.0) g/dL Hct (35-47) % MCV (78-100) fL MCH (26-32) pg MCHC (32-36) g/dL RDW (11.5-14.0) % Plt Count (150-450) x10^3/uL MPV (7.5-11.0) fL Gran % (36.0-66.0) % Immature Gran % (Auto) (0.00-0.4) % Nucleat RBC Rel Count (0.00-0.1) % Eos # (Auto) (0-0.5) x10^3/uL Immature Gran # (Auto) (0.00-0.03) x10^3u/L Absolute Lymphs (auto) (1.0-4.6) x10^3/uL Absolute Monos (auto) (0.0-1.3) x10^3/uL Absolute Nucleated RBC (0.00-0.01) x10^3u/L Lymphocytes % (24.0-44.0) % Monocytes % (0.0-12.0) % Eosinophils % (0.00-5.0) % Basophils % (0.0-0.4) % Absolute Granulocytes (1.4-6.9) x10^3/uL Basophils # (0-0.4) x10^3/uL Sodium 133 L (137-145) mmol/L Potassium 3.7 (3.5-5.1) mmol/L Chloride 93 L (98-107) mmol/L Carbon Dioxide 32 H (22-30) mmol/L Anion Gap 11.2 (5-15) MEQ/L BUN 31 H (7-17) mg/dL Creatinine 1.01 (0.52-1.04) mg/dL Estimated GFR 60.6 ML/MIN Glucose 123 H (74-106) mg/dL Lactic Acid 1.5 (0.4-2.0) Calcium 9.4 (8.4-10.2) mg/dL Magnesium 2.2 (1.6-2.3) mg/dL Total Bilirubin 0.50 (0.2-1.3) mg/dL AST 46 H (14-36) U/L ALT 29 (0-35) U/L Alkaline Phosphatase 90 (38-126) U/L NT-Pro-B Natriuret Pep 6220 (<300) pg/mL Serum Total Protein 7.9 (6.3-8.2) g/dL Albumin 4.1 (3.5-5.0) g/dL Urine Color Yellow (Yellow) Urine Appearance Cloudy A (Clear) Urine pH 5.5 (4.6-8.0) Ur Specific [place] 1.025 (1.005-1.030) Urine Protein 30 (Negative) Urine Glucose (UA) Negative (Negative) mg/dL Urine Ketones Negative (Negative) Urine Blood Small A (Negative) Urine Nitrite Positive A (Negative) Urine Bilirubin Negative (Negative) Urine Urobilinogen 1.0 A (0.2) mg/dL Ur Leukocyte Esterase Small A (Negative) U Hyaline Cast (Auto) NONE SEEN (0-2) /LPF Urine Microscopic RBC 11-20 A (0-5) /HPF Urine Microscopic WBC 11-20 A (0-5) /HPF Ur Epithelial Cells Few (None Seen) /HPF Urine Bacteria Many A (None Seen) /HPF Urine Culture Reflexed YES (NO) Influenza Type A Ag (NEGATIVE) Influenza Type B Ag (NEGATIVE) RSV (PCR) (NEGATIVE) SARS-CoV-2 (PCR) (NEGATIVE) 08/20/23 08/20/23 Range/Units 18:00 17:50 WBC 7.9 (4.0-10.5) x10^3/uL RBC 4.20 (4.1-5.4) x10^6/uL Hgb 12.3 (12.0-16.0) g/dL Hct 40.1 (35-47) % MCV 95.5 (78-100) fL MCH 29.3 (26-32) pg MCHC 30.7 L (32-36) g/dL RDW 14.3 H (11.5-14.0) % Plt Count 171 (150-450) x10^3/uL MPV 10.2 (7.5-11.0) fL Gran % 85.1 H (36.0-66.0) % Immature Gran % (Auto) 0.4 (0.00-0.4) % Nucleat RBC Rel Count 0.0 (0.00-0.1) % Eos # (Auto) 0 (0-0.5) x10^3/uL Immature Gran # (Auto) 0.03 (0.00-0.03) x10^3u/L Absolute Lymphs (auto) 0.60 L (1.0-4.6) x10^3/uL Absolute Monos (auto) 0.52 (0.0-1.3) x10^3/uL Absolute Nucleated RBC 0.00 (0.00-0.01) x10^3u/L Lymphocytes % 7.6 L (24.0-44.0) % Monocytes % 6.6 (0.0-12.0) % Eosinophils % 0.0 (0.00-5.0) % Basophils % 0.3 (0.0-0.4) % Absolute Granulocytes 6.73 (1.4-6.9) x10^3/uL Basophils # 0.02 (0-0.4) x10^3/uL Sodium (137-145) mmol/L Potassium (3.5-5.1) mmol/L Chloride (98-107) mmol/L Carbon Dioxide (22-30) mmol/L Anion Gap (5-15) MEQ/L BUN (7-17) mg/dL Creatinine (0.52-1.04) mg/dL Estimated GFR ML/MIN Glucose (74-106) mg/dL Lactic Acid (0.4-2.0) Calcium (8.4-10.2) mg/dL Magnesium (1.6-2.3) mg/dL Total Bilirubin (0.2-1.3) mg/dL AST (14-36) U/L ALT (0-35) U/L Alkaline Phosphatase (38-126) U/L NT-Pro-B Natriuret Pep (<300) pg/mL Serum Total Protein (6.3-8.2) g/dL Albumin (3.5-5.0) g/dL Urine Color (Yellow) Urine Appearance (Clear) Urine pH (4.6-8.0) Ur Specific [place] (1.005-1.030) Urine Protein (Negative) Urine Glucose (UA) (Negative) mg/dL Urine Ketones (Negative) Urine Blood (Negative) Urine Nitrite (Negative) Urine Bilirubin (Negative) Urine Urobilinogen (0.2) mg/dL Ur Leukocyte Esterase (Negative) U Hyaline Cast (Auto) (0-2) /LPF Urine Microscopic RBC (0-5) /HPF Urine Microscopic WBC (0-5) /HPF Ur Epithelial Cells (None Seen) /HPF Urine Bacteria (None Seen) /HPF Urine Culture Reflexed (NO) Influenza Type A Ag POSITIVE (NEGATIVE) Influenza Type B Ag NEGATIVE (NEGATIVE) RSV (PCR) NEGATIVE (NEGATIVE) SARS-CoV-2 (PCR) NEGATIVE (NEGATIVE) - Progress Progress: unchanged Air Movement: poor Blood Culture(s) Obtained: No Antibiotics given: Yes Discussed with : Other (Hospitalist) Counseled pt/family regarding: lab results, diagnosis, need for follow-up, rad results Medical Desision Making - Discussion of managment Care discussed with:: hospitalist Agreed on:: place in obs - Diagnostic Testing Diagnostic test were ordered, analyzed, and reviewed by me: Yes Radiological Interpretation: Interpreted by me, Reviewed by me - Risk of complications The pt has a high risk of morbidity or mortality based on: Drug therapy requiring intensive monitoring for toxicity - Departure Departure Disposition: Home Clinical Impression: Influenza with pneumonia Condition: Fair Critical Care Time: Yes Critical Care Time(excluding separately billable procedures): Critical 30-74 mins Referrals: KAUR MATOS DO [Primary Care Provider] - Follow up/PCP as directed
[2023-08-20 18:27] LABS: Absolute Neutrophil Ct (ANC) 6.73 x10^3/uL (1.4-6.9); BASOPHIL % 0.3 % (0.0-0.4); Basophil (Absolute #) 0.02 x10^3/uL (0-0.4); Eosinophil (Absolute #) 0 x10^3/uL (0-0.5); Hematocrit 40.1 % (35-47); Hemoglobin 12.3 g/dL (12.0-16.0); IMMATURE GRAN # 0.03 x10^3u/L (0.00-0.03); IMMATURE GRAN % 0.4 % (0.00-0.4); Lymphocytes % 7.6 % (24.0-44.0); Mean Cell Volume 95.5 fL (78-100); Mean Corpuscular Hemoglobin 29.3 pg (26-32); Mean Corpuscular Hgb Concent. 30.7 g/dL (32-36); Mean Platelet Volume 10.2 fL (7.5-11.0); Monocyte (Absolute #) 0.52 x10^3/uL (0.0-1.3); Monocytes % 6.6 % (0.0-12.0); Neutrophil % 85.1 % (36.0-66.0); Platelet Count 171 x10^3/uL (150-450); Red Cell Distribution Width 14.3 % (11.5-14.0); White Blood Count 7.9 x10^3/uL (4.0-10.5)
[2023-08-20] MEDS ORDERED: ROCEPHIN 1 GM / 100 ML NaCl 1 GM/100 ML IVPB IV ONE ×2 (18:31→18:45)
[2023-08-20] MEDS ORDERED: Zithromax 500 MG/ 250 ML NaCl Premix 500 MG/250 ML IVPB IV STA (18:31)
[2023-08-20 18:34] LABS: INFLUENZA B NEGATIVE (NEGATIVE); RESPIRATORY SYNCTIAL VIRUS NEGATIVE (NEGATIVE); SARS-CoV-2 Xpert Express NEGATIVE (NEGATIVE)
[2023-08-20 18:36] LABS: Appearance Cloudy (Clear); Bacteria Many /HPF (None Seen); Bilirubin Negative (Negative); Blood Small (Negative); Epithelial Cells Few /HPF (None Seen); Glucose, Urine Negative (Negative); Hyaline Casts NONE SEEN /LPF (0-2); Ketones Negative (Negative); Leukocyte Esterase Small (Negative); Nitrite Positive (Negative); Ph 5.5 (4.6-8.0); Protein,Urine Dip 30 (Negative); Specific Gravity 1.025 (1.005-1.030)
[2023-08-20 18:40] LABS: INFLUENZA A POSITIVE (NEGATIVE)
[2023-08-20] MEDS ORDERED: Zithromax 500 MG/ 250 ML NaCl Premix 500 MG/250 ML IVPB IV ONE (18:45)
[2023-08-20 18:51] LABS: ADD URINE CULTURE? YES (NO)
[2023-08-20] MEDS ORDERED: Tamiflu 75MG Capsule PO ONE ×2 (18:59→19:02)
[2023-08-20] MEDS ORDERED: solu-MEDROL 125 MG, Sterile H2O 10 ml 2 ML IV ONE ×2 (19:23)
[2023-08-20 19:24] LABS: ALBUMIN 4.1 g/dL (3.5-5.0); ANION GAP 11.2 MEQ/L (5-15); BILIRUBIN,TOTAL 0.5 mg/dL (0.2-1.3); Calcium 9.4 mg/dL (8.4-10.2); Creatinine 1 1.01 mg/dL (0.52-1.04); EST GLOMERULAR FILTRATION RATE 60.6 ML/MIN; MAGNESIUM 2.2 mg/dL (1.6-2.3); Potassium 3.7 mmol/L (3.5-5.1); Total Protein 7.9 g/dL (6.3-8.2)
[2023-08-20] MEDS ORDERED: solu-MEDROL ONE (19:30)
[2023-08-20] MEDS ORDERED: Sterile H2O 10 ml IJ ONE (19:30)
--- NOTE | 2023-08-20 20:07 | PCM.HP ---
History of Present Illness - Chief Complaint Chief Complaint: sob Date: 08/20/23 History of Present Illness: Ms. 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 She tested positive for influenza but CXR also demonstrated R upper/middle/lower lobe infiltrates. She has been hypoxic with O2 sats in the 80s that worsens with movement. She has been given antibiotics, Tamiflu, and supplemental oxygen, and has been recommended for admission. She is resting in bed, awake/alert, but having difficulty with sentences, though this has improved since initial presentation. No chest pain or palpitations. No nausea, vomiting or diarrhea. - Review of Systems Constitutional: Fever, Fatigue Eyes: Vision Changes Respiratory: Orthopnea, Short Of Breath Cardiac: No Chest Pain, No Palpitations Abdominal/Gastrointestinal: No Abdominal Pain, No Nausea, No Vomiting Genitourinary Symptoms: No Dysuria, No Frequency Musculoskeletal: No Symptoms Skin: No Rash Neurological: No Focal Weakness, No Gait Changes Psychological: No Depression Endocrine: No Polyuria, No Polydipsia Hematologic/Lymphatic: No Blood Clots, No Easy Bleeding Medications & Allergies Home Medications: Home Medication List Sertraline HCl 100 mg [Zoloft 100 MG] 100 mg PO DAILY 06/03/16 [History Confirmed 08/20/23] Zonisamide [Zonegran] 300 mg PO BID 06/03/16 [History Confirmed 08/20/23] lamoTRIgine [Lamotrigine] 150 mg PO BID 04/25/18 [History Confirmed 08/20/23] Primidone [Mysoline] 50 mg PO BID 06/22/21 [History Confirmed 08/20/23] Metolazone 2.5 mg [Zaroxolyn 2.5 MG] 1 tab PO WEEKLY 08/20/23 [History Confirmed 08/20/23] Rosuvastatin Calcium 1 tab PO DAILY 08/20/23 [History Confirmed 08/20/23] Allergies/Adverse Reactions: Allergies Allergy/AdvReac Type Severity Reaction Status Date / Time acetaminophen [From Midol] Allergy Severe Difficulty Verified 08/20/23 17:32 Breathing Influenza Virus Vaccines Allergy Severe Swelling Verified 06/29/21 10:22 pamabrom [From [facility]] Allergy Severe Difficulty Verified 08/20/23 17:32 Breathing - Past Medical History Past Medical History: Yes Neurological History: Epilepsy, Stroke ENT History: No Pertinent History Cardiac History: Other Respiratory History: COPD, Other Endocrine Medical History: No Pertinent History Musculoskelatal History: Osteoarthritis GI Medical History: Other History: No Pertinent History Pyscho-Social History: Depression Reproductive Disorders: Other Comment: PATIENT IS ON 3L O2 AT ALL TIMES. R BREAST CA, L EYE TOP OF VISION GONE. R OCCLUDED CAROTID ARTERY. - Past Surgical History Past Surgical History: Yes Neuro Surgical History: No Pertinent History Cardiac History: No Pertinent History Respiratory Surgery: No Pertinent History GI Surgical History: Appendectomy Genitourinary Surgical Hx: No Pertinent History Musculskeletal Surgical Hx: Orthopedic Surgery Female Surgical History: Hysterectomy, Tubal Ligation Other Surgical History: mass removal from right axillary region, fusion of back ("cracked") "at least 30 yrs ago", ectopic . Hx of left port that has been removed. - Social History Smoking Status: Current every day smoker How long have you smoked: 53 years Exposure to second hand smoke: Yes Alcohol: None Drug Use: none - Physical Exam Vital Signs: Vital Signs - 24 hr Temp Pulse Resp BP BP Pulse Ox 08/20/23 19:28 95 08/20/23 19:28 114 H 26 H 91 L 08/20/23 18:30 116 H 100/61 08/20/23 17:50 109 H 24 95 08/20/23 17:41 94 L 08/20/23 17:34 101.4 F 111 H 34 H 100/59 92 L 08/20/23 17:30 100/59 General Appearance: mild distress Neurologic Exam: alert, No motor deficits, No sensory deficit Ears, Nose, Throat Exam: dry mucous membranes Neck Exam: supple Respiratory Exam: diminished breath sounds, rhonchi Cardiovascular Exam: regular rate/rhythm Gastrointestinal/Abdomen Exam: soft Back Exam: No decreased range of motion Extremity Exam: No pedal edema Skin Exam: warm, dry, No rash Results - Labs Lab/Micro Results: Lab Results-Last 24 Hours 08/20/23 08/20/23 08/20/23 Range/Units 17:50 18:00 18:00 WBC 7.9 (4.0-10.5) x10^3/uL RBC 4.20 (4.1-5.4) x10^6/uL Hgb 12.3 (12.0-16.0) g/dL Hct 40.1 (35-47) % MCV 95.5 (78-100) fL MCH 29.3 (26-32) pg MCHC 30.7 L (32-36) g/dL RDW 14.3 H (11.5-14.0) % Plt Count 171 (150-450) x10^3/uL MPV 10.2 (7.5-11.0) fL Gran % 85.1 H (36.0-66.0) % Immature Gran % (Auto) 0.4 (0.00-0.4) % Nucleat RBC Rel Count 0.0 (0.00-0.1) % Eos # (Auto) 0 (0-0.5) x10^3/uL Immature Gran # (Auto) 0.03 (0.00-0.03) x10^3u/L Absolute Lymphs (auto) 0.60 L (1.0-4.6) x10^3/uL Absolute Monos (auto) 0.52 (0.0-1.3) x10^3/uL Absolute Nucleated RBC 0.00 (0.00-0.01) x10^3u/L Lymphocytes % 7.6 L (24.0-44.0) % Monocytes % 6.6 (0.0-12.0) % Eosinophils % 0.0 (0.00-5.0) % Basophils % 0.3 (0.0-0.4) % Absolute Granulocytes 6.73 (1.4-6.9) x10^3/uL Basophils # 0.02 (0-0.4) x10^3/uL Sodium (137-145) mmol/L Potassium (3.5-5.1) mmol/L Chloride (98-107) mmol/L Carbon Dioxide (22-30) mmol/L Anion Gap (5-15) MEQ/L BUN (7-17) mg/dL Creatinine (0.52-1.04) mg/dL Estimated GFR ML/MIN Glucose (74-106) mg/dL Lactic Acid 1.5 (0.4-2.0) Calcium (8.4-10.2) mg/dL Magnesium (1.6-2.3) mg/dL Total Bilirubin (0.2-1.3) mg/dL AST (14-36) U/L ALT (0-35) U/L Alkaline Phosphatase (38-126) U/L NT-Pro-B Natriuret Pep (<300) pg/mL Serum Total Protein (6.3-8.2) g/dL Albumin (3.5-5.0) g/dL Urine Color (Yellow) Urine Appearance (Clear) Urine pH (4.6-8.0) Ur Specific [place] (1.005-1.030) Urine Protein (Negative) Urine Glucose (UA) (Negative) mg/dL Urine Ketones (Negative) Urine Blood (Negative) Urine Nitrite (Negative) Urine Bilirubin (Negative) Urine Urobilinogen (0.2) mg/dL Ur Leukocyte Esterase (Negative) U Hyaline Cast (Auto) (0-2) /LPF Urine Microscopic RBC (0-5) /HPF Urine Microscopic WBC (0-5) /HPF Ur Epithelial Cells (None Seen) /HPF Urine Bacteria (None Seen) /HPF Urine Culture Reflexed (NO) Influenza Type A Ag POSITIVE (NEGATIVE) Influenza Type B Ag NEGATIVE (NEGATIVE) RSV (PCR) NEGATIVE (NEGATIVE) SARS-CoV-2 (PCR) NEGATIVE (NEGATIVE) 08/20/23 08/20/23 Range/Units 18:00 18:15 WBC (4.0-10.5) x10^3/uL RBC (4.1-5.4) x10^6/uL Hgb (12.0-16.0) g/dL Hct (35-47) % MCV (78-100) fL MCH (26-32) pg MCHC (32-36) g/dL RDW (11.5-14.0) % Plt Count (150-450) x10^3/uL MPV (7.5-11.0) fL Gran % (36.0-66.0) % Immature Gran % (Auto) (0.00-0.4) % Nucleat RBC Rel Count (0.00-0.1) % Eos # (Auto) (0-0.5) x10^3/uL Immature Gran # (Auto) (0.00-0.03) x10^3u/L Absolute Lymphs (auto) (1.0-4.6) x10^3/uL Absolute Monos (auto) (0.0-1.3) x10^3/uL Absolute Nucleated RBC (0.00-0.01) x10^3u/L Lymphocytes % (24.0-44.0) % Monocytes % (0.0-12.0) % Eosinophils % (0.00-5.0) % Basophils % (0.0-0.4) % Absolute Granulocytes (1.4-6.9) x10^3/uL Basophils # (0-0.4) x10^3/uL Sodium 133 L (137-145) mmol/L Potassium 3.7 (3.5-5.1) mmol/L Chloride 93 L (98-107) mmol/L Carbon Dioxide 32 H (22-30) mmol/L Anion Gap 11.2 (5-15) MEQ/L BUN 31 H (7-17) mg/dL Creatinine 1.01 (0.52-1.04) mg/dL Estimated GFR 60.6 ML/MIN Glucose 123 H (74-106) mg/dL Lactic Acid (0.4-2.0) Calcium 9.4 (8.4-10.2) mg/dL Magnesium 2.2 (1.6-2.3) mg/dL Total Bilirubin 0.50 (0.2-1.3) mg/dL AST 46 H (14-36) U/L ALT 29 (0-35) U/L Alkaline Phosphatase 90 (38-126) U/L NT-Pro-B Natriuret Pep 6220 (<300) pg/mL Serum Total Protein 7.9 (6.3-8.2) g/dL Albumin 4.1 (3.5-5.0) g/dL Urine Color Yellow (Yellow) Urine Appearance Cloudy A (Clear) Urine pH 5.5 (4.6-8.0) Ur Specific [place] 1.025 (1.005-1.030) Urine Protein 30 (Negative) Urine Glucose (UA) Negative (Negative) mg/dL Urine Ketones Negative (Negative) Urine Blood Small A (Negative) Urine Nitrite Positive A (Negative) Urine Bilirubin Negative (Negative) Urine Urobilinogen 1.0 A (0.2) mg/dL Ur Leukocyte Esterase Small A (Negative) U Hyaline Cast (Auto) NONE SEEN (0-2) /LPF Urine Microscopic RBC 11-20 A (0-5) /HPF Urine Microscopic WBC 11-20 A (0-5) /HPF Ur Epithelial Cells Few (None Seen) /HPF Urine Bacteria Many A (None Seen) /HPF Urine Culture Reflexed YES (NO) Influenza Type A Ag (NEGATIVE) Influenza Type B Ag (NEGATIVE) RSV (PCR) (NEGATIVE) SARS-CoV-2 (PCR) (NEGATIVE) - Radiology Impressions Radiology Exams & Impressions: Radiology Procedures Category Date Time Status CHEST 2 VIEWS (PA AND LAT) Stat Exams 08/20/23 17:41 Taken - Other Procedures and Tests Respiratory Therapy 08/20/23 17:54 Respiratory Therapy Assessment DAILY Assessment/Plan (1) Influenza with pneumonia Current Visit: Yes Status: Acute Assessment & Plan: Influenza A positive but with R multilobar pneumonia 1. Admit to hospital 2. Duonebs/supplemental oxygen 3. Tamiflu 4. Empiric antibiotics with rocephin/zithromax 5. Follow up sputum cultures 6. IVFs 7. Monitor O2 sats with ambulation (2) Acute kidney injury Current Visit: Yes Status: Acute Assessment & Plan: Creatinine elevated at 1.0 likely from prerenal azotemia 1. Trial of IVFs 2. Hold diuretics 3. Follow I/Os 4. Watch electrolytes, creatinine closely Code(s): N17.9 - ACUTE KIDNEY FAILURE, UNSPECIFIED (3) SOB (shortness of breath) Current Visit: No Status: Acute Onset Date: ~04/25/18 Assessment & Plan: Secondary to influenza/pneumonia Code(s): R06.02 - SHORTNESS OF BREATH (4) History of stroke Current Visit: No Status: Chronic Code(s): Z86.73 - PRSNL HX OF TIA (TIA), AND CEREB INFRC W/O RESID DEFICITS (5) Tobacco dependence Current Visit: No Status: Chronic Code(s): F17.200 - NICOTINE DEPENDENCE, UNSPECIFIED, UNCOMPLICATED Telemedicine Encounter - Telemedicine Encounter Telemedicine Encounter: The entirety of this encounter was performed via Telemedicine"
[2023-08-20 20:11] LABS: A-aADO2 438; ABG HEMOGLOBIN 12.3; ABG POTASSIUM 3.7 (3.5-5.1); ABG SITE LEFT RADIAL; ALLEN TEST OK? Yes; ARTERIAL BLD GAS O2 SATURATION 88.9 % (95-100); ARTERIAL BLOOD GAS BASE EXCESS 0.7 (-2.0-2.0); ARTERIAL BLOOD GAS FIO2 80 %; ARTERIAL BLOOD GAS PCO2 59 mmHg (35-45); ARTERIAL BLOOD GAS PO2 59 mmHg (75-100); ARTERIAL BLOOD GAS pH 7.29 (7.35-7.45); CARBOXYHEMOGLOBIN 1.8 % THgb (0.0-6.9); HCO3- 28.4 (22-28); HGB O2 SAT 87.2 g/dF (94-100); paO2 pAO1 0.12
--- NOTE | 2023-08-20 20:22 | XRAY ---
Indication: Fever. Short of breath. Comparison: July 27, 2023 PA/lateral chest demonstrates worsening moderate diffuse right lung consolidating/nonconsolidating airspace disease. Previous left mid to lower lung groundglass airspace disease minimally improved. No large effusion. Heart not enlarged.
[2023-08-20] MEDS ORDERED: Sodium Chloride 0.9% 1000 ML 1,000 ML IV SCH (20:30)
[2023-08-20] MEDS ORDERED: ROCEPHIN 1 GM / 100 ML NaCl 1 GM/100 ML IVPB IV SCH (20:30)
[2023-08-20] MEDS ORDERED: Sodium Chloride 0.9% 500 ML 500 ML IV ONE ×2 (21:43→21:49)
[2023-08-20] MEDS ORDERED: Tamiflu 75MG Capsule PO SCH (22:00)
[2023-08-20] MEDS ORDERED: solu-MEDROL 40 MG, Sterile H2O 10 ml 1 ML IV SCH ×2 (22:00)
[2023-08-20] MEDS ORDERED: NOREPINEPHRINE 8 MG/250 ML-D5W 0 MG/0 ML PLAST..BAG IV ONE (22:05)
[2023-08-20] MEDS ORDERED: NOREPINEPHRINE 8 MG/250 ML-D5W 8 MG/250 ML PLAST..BAG IV PRN (22:10)
[2023-08-20 23:35] LABS: A-aADO2 233; ABG HEMOGLOBIN 12.3; ABG POTASSIUM 3.1 (3.5-5.1); ARTERIAL BLOOD GAS BASE EXCESS 3.8 (-2.0-2.0); ARTERIAL BLOOD GAS FIO2 50 %; ARTERIAL BLOOD GAS PCO2 52 mmHg (35-45); ARTERIAL BLOOD GAS PO2 59 mmHg (75-100); ARTERIAL BLOOD GAS pH 7.37 (7.35-7.45); CARBOXYHEMOGLOBIN 1.3 % THgb (0.0-6.9); HCO3- 30.1 (22-28); Methhemoglobin 0.9 % (1.4-1.5)
[2023-08-20 23:36] LABS: ABG SITE RIGHT RADIAL; ALLEN TEST OK? Yes; BIPAP(E) 8; BIPAP(I) 18
[2023-08-21] MEDS: Sodium Chloride 0.9% 1000 ML 1,000 ML IV SCH ×2 (00:55→14:28)
[2023-08-21] MEDS ORDERED: DUONEB 0.5-3 MG/3 ml Neb IH SCH (01:00)
[2023-08-21] MEDS: DUONEB 0.5-3 MG/3 ml Neb IH SCH ×5 (01:02→23:54)
--- NOTE | 2023-08-21 05:19 | PCM.NOTE ---
Date and Time: 08/21/23 0513 Subjective Assessment: Ms. Vinson is a 68 year old female with a past medical history significant for L breast cancer status post resection/chemo, hyperlipidemia, previous CVA and chronic O2 usage who presented to ED 08/20/23 with complaints of increasing shortness of breath associated with fever up to 102. She tested positive for influenza but CXR also demonstrated R upper/middle/lower lobe infiltrates. She has been hypoxic with O2 sats in the 80s that worsens with movement. UA also suspicious for UTI. She has been given antibiotics, Tamiflu, and supplemental oxygen. Admitted with UTI, influenza, and pneumonia. Current treatment with ceftriaxone, azithromycin, solumedrol. Of note, patient became hypotensive and started on levophed drip. BIPAP also initiated. 08/21/23> Met with patient bedside. Endorses improvement overall in shortness of breath. Cough productive with green sputum. She also reports a sore throat. She continues on BIPAP at 50%. Denies fever, cp, abdominal pain, HEALY, dizziness, N/V/D. - Review of Systems Constitutional: No Symptoms Eyes: No Symptoms Ears, Nose, & Throat: Throat Pain Respiratory: Cough, Short Of Breath Cardiac: No Symptoms Abdominal/Gastrointestinal: No Symptoms Genitourinary Symptoms: No Symptoms Musculoskeletal: No Symptoms Skin: No Symptoms Neurological: No Symptoms Psychological: No Symptoms Endocrine: No Symptoms Hematologic/Lymphatic: No Symptoms Immunological/Allergic: No Symptoms Objective Exam General Appearance: no apparent distress Neurologic Exam: alert, oriented x 3, cooperative, normal mood/affect Skin Exam: normal color Wound Assessment: Skin/Wound Assessment Wound/Incision Assessment Start: 08/20/23 21:35 Text: Status: Active Freq: Q6H Protocol: Document 08/21/23 03:35 AB (Rec: 08/21/23 03:52 AB [id number]) Wound Photo Photo Taken No Eye Exam: PERRL Ears, Nose, Throat Exam: normal ENT inspection Neck Exam: normal inspection Respiratory Exam: diminished breath sounds, crackles/rales, wheezing Cardiovascular Exam: regular rate/rhythm, normal heart sounds Gastrointestinal/Abdomen Exam: soft, normal bowel sounds Extremity Exam: normal inspection Back Exam: normal inspection Pelvic Exam: deferred Rectal Exam: deferred OBJECTIVE DATA Vital Signs: Vital Signs - 24 hr Temp Pulse Resp BP BP Pulse Ox 08/21/23 04:15 72 24 91/60 100 08/21/23 04:00 74 23 88/57 100 08/21/23 03:45 75 22 94/56 100 08/21/23 03:30 70 22 92/58 100 08/21/23 03:15 70 23 97/59 100 08/21/23 03:00 77 23 99/49 100 08/21/23 02:45 74 22 99/59 100 08/21/23 02:30 77 22 96/57 100 08/21/23 02:15 75 23 102/58 100 08/21/23 02:00 78 24 95/59 100 08/21/23 01:45 76 23 94/68 100 08/21/23 01:30 78 23 89/52 100 08/21/23 01:15 79 25 H 82/50 100 08/21/23 01:02 79 30 H 100 08/21/23 01:00 78 25 H 100/66 100 08/21/23 00:45 85 23 104/63 100 08/21/23 00:30 84 24 101/63 99 08/21/23 00:15 85 25 H 106/61 99 08/21/23 00:01 79 08/21/23 00:00 85 24 90/58 98 08/20/23 23:45 85 25 H 107/63 98 08/20/23 23:30 87 24 94/64 98 08/20/23 23:20 98 08/20/23 23:17 90 25 H 98 08/20/23 23:15 87 24 107/63 98 08/20/23 23:00 91 H 27 H 99/52 99 08/20/23 22:45 92 H 26 H 113/93 99 08/20/23 22:30 92 H 26 H 107/60 100 08/20/23 22:16 92 H 27 H 103/63 100 08/20/23 22:00 136 H 27 H 92/52 100 08/20/23 21:45 142 H 27 H 81/56 99 08/20/23 21:30 98.3 F 101 H 27 H 87/51 99 08/20/23 21:00 99 08/20/23 20:36 98.6 F 130 H 28 H 98/67 88 L 08/20/23 20:00 122 H 31 H 88 L 08/20/23 19:30 158 H 13 99/66 85 L 08/20/23 19:28 95 08/20/23 19:28 114 H 26 H 91 L 08/20/23 19:08 98/54 92 L 08/20/23 18:30 116 H 100/61 08/20/23 17:50 109 H 24 95 08/20/23 17:41 94 L 08/20/23 17:34 101.4 F 111 H 34 H 100/59 92 L 08/20/23 17:30 100/59 Pain Assessment - Last Documented Pain Intensity 0 Intake and Output: Intake & Output 08/18/23 08/19/23 08/20/23 08/21/23 11:59 11:59 11:59 11:59 Weight 73.2 kg Lab Results: Lab Results-Last 24 Hours 08/20/23 08/20/23 08/20/23 Range/Units 17:50 18:00 18:00 WBC 7.9 (4.0-10.5) x10^3/uL RBC 4.20 (4.1-5.4) x10^6/uL Hgb 12.3 (12.0-16.0) g/dL Hct 40.1 (35-47) % MCV 95.5 (78-100) fL MCH 29.3 (26-32) pg MCHC 30.7 L (32-36) g/dL RDW 14.3 H (11.5-14.0) % Plt Count 171 (150-450) x10^3/uL MPV 10.2 (7.5-11.0) fL Gran % 85.1 H (36.0-66.0) % Immature Gran % (Auto) 0.4 (0.00-0.4) % Nucleat RBC Rel Count 0.0 (0.00-0.1) % Eos # (Auto) 0 (0-0.5) x10^3/uL Immature Gran # (Auto) 0.03 (0.00-0.03) x10^3u/L Absolute Lymphs (auto) 0.60 L (1.0-4.6) x10^3/uL Absolute Monos (auto) 0.52 (0.0-1.3) x10^3/uL Absolute Nucleated RBC 0.00 (0.00-0.01) x10^3u/L Lymphocytes % 7.6 L (24.0-44.0) % Monocytes % 6.6 (0.0-12.0) % Eosinophils % 0.0 (0.00-5.0) % Basophils % 0.3 (0.0-0.4) % Absolute Granulocytes 6.73 (1.4-6.9) x10^3/uL Basophils # 0.02 (0-0.4) x10^3/uL Puncture Site pCO2 (35-45) mmHg pO2 (75-100) mmHg Base Excess (-2.0-2.0) O2 Saturation (94-100) g/dF ABG pH (7.35-7.45) ABG HCO3 (22-28) ABG O2 Sat (Measured) (95-100) % Kailash Test A-a Gradient a/A Ratio Hemoglobin Carboxyhemoglobin (0.0-6.9) % THgb Methemoglobin (1.4-1.5) % Temperature C POC O2 Flow Rate % Inspiratory BiPAP Expiratory BiPAP Sodium (137-145) mmol/L Potassium (3.5-5.1) mmol/L Chloride (98-107) mmol/L Carbon Dioxide (22-30) mmol/L Anion Gap (5-15) MEQ/L BUN (7-17) mg/dL Creatinine (0.52-1.04) mg/dL Estimated GFR ML/MIN Glucose (74-106) mg/dL Lactic Acid 1.5 (0.4-2.0) Calcium (8.4-10.2) mg/dL Magnesium (1.6-2.3) mg/dL Total Bilirubin (0.2-1.3) mg/dL AST (14-36) U/L ALT (0-35) U/L Alkaline Phosphatase (38-126) U/L NT-Pro-B Natriuret Pep (<300) pg/mL Serum Total Protein (6.3-8.2) g/dL Albumin (3.5-5.0) g/dL Urine Color (Yellow) Urine Appearance (Clear) Urine pH (4.6-8.0) Ur Specific [place] (1.005-1.030) Urine Protein (Negative) Urine Glucose (UA) (Negative) mg/dL Urine Ketones (Negative) Urine Blood (Negative) Urine Nitrite (Negative) Urine Bilirubin (Negative) Urine Urobilinogen (0.2) mg/dL Ur Leukocyte Esterase (Negative) U Hyaline Cast (Auto) (0-2) /LPF Urine Microscopic RBC (0-5) /HPF Urine Microscopic WBC (0-5) /HPF Ur Epithelial Cells (None Seen) /HPF Urine Bacteria (None Seen) /HPF Urine Culture Reflexed (NO) Influenza Type A Ag POSITIVE (NEGATIVE) Influenza Type B Ag NEGATIVE (NEGATIVE) RSV (PCR) NEGATIVE (NEGATIVE) SARS-CoV-2 (PCR) NEGATIVE (NEGATIVE) 08/20/23 08/20/23 08/20/23 Range/Units 18:00 18:15 20:10 WBC (4.0-10.5) x10^3/uL RBC (4.1-5.4) x10^6/uL Hgb (12.0-16.0) g/dL Hct (35-47) % MCV (78-100) fL MCH (26-32) pg MCHC (32-36) g/dL RDW (11.5-14.0) % Plt Count (150-450) x10^3/uL MPV (7.5-11.0) fL Gran % (36.0-66.0) % Immature Gran % (Auto) (0.00-0.4) % Nucleat RBC Rel Count (0.00-0.1) % Eos # (Auto) (0-0.5) x10^3/uL Immature Gran # (Auto) (0.00-0.03) x10^3u/L Absolute Lymphs (auto) (1.0-4.6) x10^3/uL Absolute Monos (auto) (0.0-1.3) x10^3/uL Absolute Nucleated RBC (0.00-0.01) x10^3u/L Lymphocytes % (24.0-44.0) % Monocytes % (0.0-12.0) % Eosinophils % (0.00-5.0) % Basophils % (0.0-0.4) % Absolute Granulocytes (1.4-6.9) x10^3/uL Basophils # (0-0.4) x10^3/uL Puncture Site LEFT RADIAL pCO2 59 H (35-45) mmHg pO2 59 L (75-100) mmHg Base Excess 0.7 (-2.0-2.0) O2 Saturation 87.2 L (94-100) g/dF ABG pH 7.29 L (7.35-7.45) ABG HCO3 28.4 H (22-28) ABG O2 Sat (Measured) 88.9 L (95-100) % Kailash Test Yes A-a Gradient 438 a/A Ratio 0.12 Hemoglobin 12.3 Carboxyhemoglobin 1.8 (0.0-6.9) % THgb Methemoglobin 0.0 L (1.4-1.5) % Temperature 37.0 C POC O2 Flow Rate 80 % Inspiratory BiPAP Expiratory BiPAP Sodium 133 L (137-145) mmol/L Potassium 3.7 3.7 (3.5-5.1) mmol/L Chloride 93 L (98-107) mmol/L Carbon Dioxide 32 H (22-30) mmol/L Anion Gap 11.2 (5-15) MEQ/L BUN 31 H (7-17) mg/dL Creatinine 1.01 (0.52-1.04) mg/dL Estimated GFR 60.6 ML/MIN Glucose 123 H (74-106) mg/dL Lactic Acid (0.4-2.0) Calcium 9.4 (8.4-10.2) mg/dL Magnesium 2.2 (1.6-2.3) mg/dL Total Bilirubin 0.50 (0.2-1.3) mg/dL AST 46 H (14-36) U/L ALT 29 (0-35) U/L Alkaline Phosphatase 90 (38-126) U/L NT-Pro-B Natriuret Pep 6220 (<300) pg/mL Serum Total Protein 7.9 (6.3-8.2) g/dL Albumin 4.1 (3.5-5.0) g/dL Urine Color Yellow (Yellow) Urine Appearance Cloudy A (Clear) Urine pH 5.5 (4.6-8.0) Ur Specific [place] 1.025 (1.005-1.030) Urine Protein 30 (Negative) Urine Glucose (UA) Negative (Negative) mg/dL Urine Ketones Negative (Negative) Urine Blood Small A (Negative) Urine Nitrite Positive A (Negative) Urine Bilirubin Negative (Negative) Urine Urobilinogen 1.0 A (0.2) mg/dL Ur Leukocyte Esterase Small A (Negative) U Hyaline Cast (Auto) NONE SEEN (0-2) /LPF Urine Microscopic RBC 11-20 A (0-5) /HPF Urine Microscopic WBC 11-20 A (0-5) /HPF Ur Epithelial Cells Few (None Seen) /HPF Urine Bacteria Many A (None Seen) /HPF Urine Culture Reflexed YES (NO) Influenza Type A Ag (NEGATIVE) Influenza Type B Ag (NEGATIVE) RSV (PCR) (NEGATIVE) SARS-CoV-2 (PCR) (NEGATIVE) 08/20/23 Range/Units 23:30 WBC (4.0-10.5) x10^3/uL RBC (4.1-5.4) x10^6/uL Hgb (12.0-16.0) g/dL Hct (35-47) % MCV (78-100) fL MCH (26-32) pg MCHC (32-36) g/dL RDW (11.5-14.0) % Plt Count (150-450) x10^3/uL MPV (7.5-11.0) fL Gran % (36.0-66.0) % Immature Gran % (Auto) (0.00-0.4) % Nucleat RBC Rel Count (0.00-0.1) % Eos # (Auto) (0-0.5) x10^3/uL Immature Gran # (Auto) (0.00-0.03) x10^3u/L Absolute Lymphs (auto) (1.0-4.6) x10^3/uL Absolute Monos (auto) (0.0-1.3) x10^3/uL Absolute Nucleated RBC (0.00-0.01) x10^3u/L Lymphocytes % (24.0-44.0) % Monocytes % (0.0-12.0) % Eosinophils % (0.00-5.0) % Basophils % (0.0-0.4) % Absolute Granulocytes (1.4-6.9) x10^3/uL Basophils # (0-0.4) x10^3/uL Puncture Site RIGHT RADIAL pCO2 52 H (35-45) mmHg pO2 59 L (75-100) mmHg Base Excess 3.8 H (-2.0-2.0) O2 Saturation 89.0 L (94-100) g/dF ABG pH 7.37 (7.35-7.45) ABG HCO3 30.1 H* (22-28) ABG O2 Sat (Measured) 91.0 L (95-100) % Kailash Test Yes A-a Gradient 233 a/A Ratio 0.20 Hemoglobin 12.3 Carboxyhemoglobin 1.3 (0.0-6.9) % THgb Methemoglobin 0.9 L (1.4-1.5) % Temperature 37.0 C POC O2 Flow Rate 50 % Inspiratory BiPAP 18 Expiratory BiPAP 8 Sodium (137-145) mmol/L Potassium 3.1 L (3.5-5.1) mmol/L Chloride (98-107) mmol/L Carbon Dioxide (22-30) mmol/L Anion Gap (5-15) MEQ/L BUN (7-17) mg/dL Creatinine (0.52-1.04) mg/dL Estimated GFR ML/MIN Glucose (74-106) mg/dL Lactic Acid (0.4-2.0) Calcium (8.4-10.2) mg/dL Magnesium (1.6-2.3) mg/dL Total Bilirubin (0.2-1.3) mg/dL AST (14-36) U/L ALT (0-35) U/L Alkaline Phosphatase (38-126) U/L NT-Pro-B Natriuret Pep (<300) pg/mL Serum Total Protein (6.3-8.2) g/dL Albumin (3.5-5.0) g/dL Urine Color (Yellow) Urine Appearance (Clear) Urine pH (4.6-8.0) Ur Specific [place] (1.005-1.030) Urine Protein (Negative) Urine Glucose (UA) (Negative) mg/dL Urine Ketones (Negative) Urine Blood (Negative) Urine Nitrite (Negative) Urine Bilirubin (Negative) Urine Urobilinogen (0.2) mg/dL Ur Leukocyte Esterase (Negative) U Hyaline Cast (Auto) (0-2) /LPF Urine Microscopic RBC (0-5) /HPF Urine Microscopic WBC (0-5) /HPF Ur Epithelial Cells (None Seen) /HPF Urine Bacteria (None Seen) /HPF Urine Culture Reflexed (NO) Influenza Type A Ag (NEGATIVE) Influenza Type B Ag (NEGATIVE) RSV (PCR) (NEGATIVE) SARS-CoV-2 (PCR) (NEGATIVE) Radiology Exams: Radiology Procedures Category Date Time Status CHEST 2 VIEWS (PA AND LAT) Stat Exams 08/20/23 17:41 Completed Multi-Disciplinary Progress Notes: Multi-Disciplinary Progress Notes 08/20/23 23:39 Respiratory Note by Sharon Workman FiO2 increased to 60% due to most recent ABG results showing PaO2 of 59. Initialized on 08/20/23 23:39 - END OF NOTE 08/20/23 19:32 Respiratory Note by Sharon Workman RT called to patient bedside by MARGO Back to evaluate patient for low SpO2. Upon arrival, pt's SpO2 was 80% on 5L nasal cannula. Pt was placed on 8L Oxymask and SpO2 increased to 85%. Pt was then placed on 15L NRB and SpO2 increased to 89- 90%. Pt was repositioned. MARGO Lee notified MD. does not wish to have ABG done at this time, no high flow or bipap orders at this time. requested subsequent neb tx. Pt was placed back on 15L NRB post tx. SpO2 was 87%. MD was notified and verbal order obtained for ABG. Initialized on 08/20/23 19:32 - END OF NOTE Assessment/Plan (1) UTI (urinary tract infection) Current Visit: Yes Status: Acute Assessment & Plan: -UA suspicious for UTI, will start on ceftriaxone empirically, follow culture Code(s): N39.0 - URINARY TRACT INFECTION, SITE NOT SPECIFIED (2) Acute kidney injury Current Visit: Yes Status: Acute Assessment & Plan: Creatinine elevated at 1.0 likely from prerenal azotemia 1. Trial of IVFs 2. Hold diuretics 3. Follow I/Os 4. Watch electrolytes, creatinine closely 08/21: -Resolved Code(s): N17.9 - ACUTE KIDNEY FAILURE, UNSPECIFIED (3) Influenza with pneumonia Current Visit: Yes Status: Acute Assessment & Plan: Influenza A positive but with R multilobar pneumonia 1. Admit to hospital 2. Duonebs/supplemental oxygen 3. Tamiflu 4. Empiric antibiotics with rocephin/zithromax 5. Follow up sputum cultures 6. IVFs 7. Monitor O2 sats with ambulation 08/21: -Continue rocephin/azithromycin/Tamiflu (4) SOB (shortness of breath) Current Visit: No Status: Acute Onset Date: ~04/25/18 Assessment & Plan: Secondary to influenza/pneumonia Code(s): R06.02 - SHORTNESS OF BREATH (5) History of stroke Current Visit: No Status: Chronic Assessment & Plan: -noted, continue appropriate home meds Code(s): Z86.73 - PRSNL HX OF TIA (TIA), AND CEREB INFRC W/O RESID DEFICITS (6) Tobacco dependence Current Visit: No Status: Chronic Assessment & Plan: -Noted, nicotine patch Code(s): F17.200 - NICOTINE DEPENDENCE, UNSPECIFIED, UNCOMPLICATED (7) Seizure disorder Current Visit: Yes Status: Acute Assessment & Plan: -seizure precautions -continue appropriate home medications Code(s): G40.909 - EPILEPSY, UNSP, NOT INTRACTABLE, WITHOUT STATUS EPILEPTICUS
[2023-08-21] MEDS ORDERED: Sterile H2O 10 ml IJ ONE (06:10)
[2023-08-21] MEDS ORDERED: solu-MEDROL ONE (06:10)
[2023-08-21] MEDS: solu-MEDROL 40 MG, Sterile H2O 10 ml 1 ML IV SCH ×6 (06:11→21:40)
[2023-08-21] MEDS: Tamiflu 75MG Capsule PO SCH ×3 (06:12→21:40)
[2023-08-21 06:32] LABS: ALBUMIN 3.5 g/dL (3.5-5.0); ANION GAP 9.9 MEQ/L (5-15); BILIRUBIN,TOTAL 0.3 mg/dL (0.2-1.3); Calcium 8.5 mg/dL (8.4-10.2); Creatinine 1 0.88 mg/dL (0.52-1.04); EST GLOMERULAR FILTRATION RATE 71.5 ML/MIN; Potassium 3.4 mmol/L (3.5-5.1); Total Protein 6.9 g/dL (6.3-8.2)
[2023-08-21 08:37] LABS: Absolute Neutrophil Ct (ANC) 7.37 x10^3/uL (1.4-6.9); BASOPHIL % 0.1 % (0.0-0.4); Basophil (Absolute #) 0.01 x10^3/uL (0-0.4); Eosinophil (Absolute #) 0 x10^3/uL (0-0.5); Hematocrit 35.3 % (35-47); Hemoglobin 11.2 g/dL (12.0-16.0); IMMATURE GRAN # 0.04 x10^3u/L (0.00-0.03); IMMATURE GRAN % 0.5 % (0.00-0.4); Lymphocyte (Absolute #) 0.58 x10^3/uL (1.0-4.6); Lymphocytes % 6.6 % (24.0-44.0); Mean Cell Volume 97.5 fL (78-100); Mean Corpuscular Hemoglobin 30.9 pg (26-32); Mean Corpuscular Hgb Concent. 31.7 g/dL (32-36); Mean Platelet Volume 10.8 fL (7.5-11.0); Monocyte (Absolute #) 0.74 x10^3/uL (0.0-1.3); Monocytes % 8.5 % (0.0-12.0); Neutrophil % 84.3 % (36.0-66.0); Platelet Count 173 x10^3/uL (150-450); Red Blood Count 3.62 x10^6/uL (4.1-5.4); Red Cell Distribution Width 14.7 % (11.5-14.0); White Blood Count 8.7 x10^3/uL (4.0-10.5)
[2023-08-21] MEDS: Klor Con PO SCH ×4 (08:46→17:04)
[2023-08-21] MEDS: lamICTAL 100MG TABLET PO SCH ×2 (09:54→21:40)
[2023-08-21] MEDS: MYSOLINE 50MG PO SCH ×2 (09:55→21:40)
[2023-08-21] MEDS: ZOLOFT 50 MG TABLET PO SCH (09:55)
[2023-08-21] MEDS: ZOCOR 20MG PO SCH (09:56)
[2023-08-21] MEDS: ZONISAMIDE PO SCH ×2 (09:57→21:42)
[2023-08-21] MEDS ORDERED: Zithromax 500 MG/ 250 ML NaCl Premix 500 MG/250 ML IVPB IV SCH (10:00)
[2023-08-21] MEDS: ENOXAPARIN SODIUM SQ SCH (11:12)
[2023-08-21 12:09] LABS: Slide Review 1 YES
[2023-08-21] MEDS: NICOTINE PATCH 7MG TD SCH (14:41)
[2023-08-21] MEDS ORDERED: Klor Con ONE (17:04)
[2023-08-21] MEDS: ROCEPHIN 1 GM / 100 ML NaCl 1 GM/100 ML IVPB IV SCH (18:30)
[2023-08-21] MEDS: Zithromax 500 MG/ 250 ML NaCl Premix 500 MG/250 ML IVPB IV SCH (21:00)
[2023-08-22] MEDS ORDERED: Lasix 40 MG/4 ML IV ONE (00:08)
[2023-08-22 04:43] LABS: Absolute Neutrophil Ct (ANC) 7.87 x10^3/uL (1.4-6.9); BASOPHIL % 0.2 % (0.0-0.4); Basophil (Absolute #) 0.02 x10^3/uL (0-0.4); Eosinophil (Absolute #) 0 x10^3/uL (0-0.5); Hematocrit 37.8 % (35-47); Hemoglobin 11.3 g/dL (12.0-16.0); IMMATURE GRAN # 0.06 x10^3u/L (0.00-0.03); IMMATURE GRAN % 0.7 % (0.00-0.4); Lymphocytes % 4.5 % (24.0-44.0); Mean Cell Volume 97.7 fL (78-100); Mean Corpuscular Hemoglobin 29.2 pg (26-32); Mean Corpuscular Hgb Concent. 29.9 g/dL (32-36); Mean Platelet Volume 10.7 fL (7.5-11.0); Monocyte (Absolute #) 0.47 x10^3/uL (0.0-1.3); Monocytes % 5.3 % (0.0-12.0); Neutrophil % 89.3 % (36.0-66.0); Platelet Count 170 x10^3/uL (150-450); Red Blood Count 3.87 x10^6/uL (4.1-5.4); Red Cell Distribution Width 14.9 % (11.5-14.0); White Blood Count 8.8 x10^3/uL (4.0-10.5)
[2023-08-22 05:16] LABS: ALBUMIN 3.4 g/dL (3.5-5.0); ANION GAP 9.7 MEQ/L (5-15); BILIRUBIN,TOTAL 0.4 mg/dL (0.2-1.3); Calcium 8.2 mg/dL (8.4-10.2); Creatinine 1 0.77 mg/dL (0.52-1.04); MAGNESIUM 1.9 mg/dL (1.6-2.3); Potassium 4.2 mmol/L (3.5-5.1); Total Protein 6.7 g/dL (6.3-8.2)
--- NOTE | 2023-08-22 05:18 | PCM.NOTE ---
Date and Time: 08/22/23 0516 Subjective Assessment: Ms. Vinson is a 68 year old female with a past medical history significant for L breast cancer status post resection/chemo, hyperlipidemia, previous CVA and chronic O2 usage who presented to ED 08/20/23 with complaints of increasing shortness of breath associated with fever up to 102. She tested positive for influenza but CXR also demonstrated R upper/middle/lower lobe infiltrates. She has been hypoxic with O2 sats in the 80s that worsens with movement. UA also suspicious for UTI. She has been given antibiotics, Tamiflu, and supplemental oxygen. Admitted with UTI, influenza, and pneumonia. Current treatment with ceftriaxone, azithromycin, solumedrol. Of note, patient became hypotensive and started on levophed drip. BIPAP also initiated. 08/22: Met with patient bedside. Endorses shortness of breath, loose stools, and productive cough with yellow sputum. Reports that the steroid is giving her nigh tmares. Increased aeration on lung auscultation. Now on oxymask at [address] chest performed today and negative for PE, demonstrating tiny plueral effusions and diffuse consolidation bilaterally with R>L. Levophed drip has been discontinued. Plan for continued treatment with ceftriaxone/azithromycin/solumedrol. Will trial a decrease of solumedrol. Add probiotic. Denies fever,cp, abdominal pain, HEALY, dizziness, N/V/D. - Review of Systems Constitutional: Fatigue Eyes: No Symptoms Ears, Nose, & Throat: No Symptoms Respiratory: Cough, Short Of Breath Cardiac: No Symptoms Abdominal/Gastrointestinal: Other (loose stools) Genitourinary Symptoms: No Symptoms Musculoskeletal: No Symptoms Skin: No Symptoms Neurological: Other (nightmares) Psychological: No Symptoms Endocrine: No Symptoms Hematologic/Lymphatic: No Symptoms Immunological/Allergic: No Symptoms Objective Exam General Appearance: no apparent distress Neurologic Exam: alert, oriented x 3, cooperative Skin Exam: normal color Wound Assessment: Skin/Wound Assessment Wound/Incision Assessment Start: 08/20/23 21:35 Text: Status: Active Freq: Q6H Protocol: Document 08/22/23 03:00 AB (Rec: 08/22/23 03:51 AB [id number]) Wound Photo Photo Taken No Eye Exam: PERRL Ears, Nose, Throat Exam: normal ENT inspection Neck Exam: normal inspection Respiratory Exam: diminished breath sounds Cardiovascular Exam: regular rate/rhythm, normal heart sounds Gastrointestinal/Abdomen Exam: soft, normal bowel sounds Extremity Exam: normal inspection Back Exam: normal inspection Pelvic Exam: deferred Rectal Exam: deferred OBJECTIVE DATA Vital Signs: Vital Signs - 24 hr Temp Pulse Resp BP Pulse Ox 08/22/23 04:30 85 22 108/72 98 08/22/23 04:16 86 25 H 102/67 97 08/22/23 04:00 86 26 H 118/53 96 08/22/23 03:45 91 H 29 H 92/58 97 08/22/23 03:31 91 H 25 H 99/78 97 08/22/23 03:15 92 H 27 H 109/69 96 08/22/23 03:00 104/71 67 L 08/22/23 02:45 94 H 26 H 109/72 97 08/22/23 02:30 92 H 23 98/68 95 08/22/23 02:15 95 H 27 H 108/68 94 L 08/22/23 02:00 97 H 28 H 102/61 95 08/22/23 01:45 99 H 32 H 99/60 93 L 08/22/23 01:30 95 H 9 L 94/72 95 08/22/23 01:15 125 H 26 H 128/82 08/22/23 01:00 105 H 32 H 113/72 94 L 08/22/23 00:45 108 H 37 H 123/74 95 08/22/23 00:32 128 H 42 H 110/56 08/22/23 00:15 108 H 39 H 144/75 96 08/22/23 00:01 116 H 22 119/55 95 08/22/23 00:00 105 H 08/21/23 23:54 113 H 39 H 93 L 08/21/23 23:47 111 H 38 H 143/81 96 08/21/23 23:30 121 H 32 H 138/95 93 L 08/21/23 23:29 120 H 41 H 91 L 08/21/23 23:20 108 H 34 H 94 L 08/21/23 23:10 104 H 36 H 97 08/21/23 23:02 102 H 30 H 97 08/21/23 22:45 104 H 35 H 112/69 95 08/21/23 22:30 98 H 38 H 103/66 94 L 08/21/23 22:15 93 H 33 H 105/70 94 L 08/21/23 22:00 96 H 32 H 114/67 97 08/21/23 21:45 103 H 28 H 106/64 99 08/21/23 21:30 106 H 31 H 105/59 98 08/21/23 21:00 97 H 28 H 101/75 98 08/21/23 20:45 99.4 F 86 25 H 106/72 98 08/21/23 20:30 84 22 99/69 98 08/21/23 20:15 89 28 H 113/68 99 08/21/23 20:00 86 30 H 93/66 98 08/21/23 19:46 92 H 30 H 109/67 99 08/21/23 19:30 105 H 20 129/59 92 L 08/21/23 19:29 104 H 44 H 92 L 08/21/23 19:20 146 H 17 96 08/21/23 19:10 102 H 27 H 96 08/21/23 19:02 100 H 29 H 99 08/21/23 18:52 99 H 26 H 86/65 98 08/21/23 18:51 103 H 25 H 98 08/21/23 18:50 103 H 19 99 08/21/23 18:40 102 H 21 100 08/21/23 18:30 106 H 28 H 93 L 08/21/23 18:29 102 H 22 95 08/21/23 18:20 101 H 23 95 08/21/23 18:10 100 H 36 H 82 L 08/21/23 18:00 103 H 94 L 08/21/23 17:50 108 H 30 H 88 L 08/21/23 17:40 107 H 87 L 08/21/23 17:32 109 H 31 H 82 L 08/21/23 17:15 106/67 80 L 08/21/23 17:00 85 26 H 111/68 97 08/21/23 16:45 82 25 H 106/71 97 08/21/23 16:30 81 23 100/52 97 08/21/23 16:15 77 31 H 109/63 98 08/21/23 16:00 79 23 116/54 98 08/21/23 15:45 77 20 106/62 99 08/21/23 15:31 81 22 124/55 99 08/21/23 15:15 20 112/70 98 08/21/23 15:00 85 25 H 101/64 100 08/21/23 14:45 98 H 25 H 111/62 100 08/21/23 14:30 83 21 124/60 99 08/21/23 14:15 91 H 28 H 107/63 100 08/21/23 14:00 85 24 104/60 99 08/21/23 13:45 81 25 H 113/59 99 08/21/23 13:30 81 23 103/64 100 08/21/23 13:15 82 28 H 118/58 100 08/21/23 13:00 83 25 H 115/61 99 08/21/23 12:59 89 17 94 L 08/21/23 12:45 91 H 26 H 107/67 93 L 08/21/23 12:31 100 H 17 107/64 84 L 08/21/23 12:30 14 100 08/21/23 12:22 100 08/21/23 12:17 100 08/21/23 12:00 67 105/71 100 08/21/23 11:45 67 25 H 112/74 100 08/21/23 11:31 83 29 H 107/51 100 08/21/23 11:15 90 16 114/59 97 08/21/23 11:00 75 25 H 116/59 100 08/21/23 10:45 79 26 H 112/66 100 08/21/23 10:30 79 23 107/65 100 08/21/23 10:15 79 23 122/67 99 08/21/23 10:00 82 17 110/68 99 08/21/23 09:45 95 H 15 130/73 08/21/23 09:30 93 H 24 119/68 08/21/23 09:15 21 113/74 08/21/23 09:00 95 H 24 111/59 08/21/23 08:45 94 H 27 H 112/57 91 L 08/21/23 08:30 95 H 29 H 117/71 89 L 08/21/23 08:15 83 25 H 125/60 100 08/21/23 08:00 87 21 120/59 100 08/21/23 07:45 81 23 117/65 100 08/21/23 07:30 80 21 110/70 100 08/21/23 07:15 76 24 105/70 100 08/21/23 07:01 75 71/50 08/21/23 07:00 84 22 100 08/21/23 06:45 81 21 93/61 08/21/23 06:30 74 3 L 100/50 08/21/23 06:16 89 22 92/56 08/21/23 06:00 78 29 H 104/66 08/21/23 05:45 79 26 H 86/58 08/21/23 05:30 72 21 83/53 100 Pain Assessment - Last Documented Pain Intensity 0 Intake and Output: Intake & Output 08/19/23 08/20/23 08/21/23 08/22/23 11:59 11:59 11:59 11:59 Intake Total 0 120 Output Total 600 Balance 0 -480 Weight 73.2 kg Lab Results: Lab Results-Last 24 Hours 08/21/23 08/21/23 08/21/23 Range/Units 06:02 06:04 12:25 WBC 8.7 (4.0-10.5) x10^3/uL RBC 3.62 L (4.1-5.4) x10^6/uL Hgb 11.2 L (12.0-16.0) g/dL Hct 35.3 (35-47) % MCV 97.5 (78-100) fL MCH 30.9 (26-32) pg MCHC 31.7 L (32-36) g/dL RDW 14.7 H (11.5-14.0) % Plt Count 173 (150-450) x10^3/uL MPV 10.8 (7.5-11.0) fL Gran % 84.3 H (36.0-66.0) % Immature Gran % (Auto) 0.5 H (0.00-0.4) % Nucleat RBC Rel Count 0.0 (0.00-0.1) % Eos # (Auto) 0 (0-0.5) x10^3/uL Immature Gran # (Auto) 0.04 H (0.00-0.03) x10^3u/L Absolute Lymphs (auto) 0.58 L (1.0-4.6) x10^3/uL Absolute Monos (auto) 0.74 (0.0-1.3) x10^3/uL Absolute Nucleated RBC 0.00 (0.00-0.01) x10^3u/L Lymphocytes % 6.6 L (24.0-44.0) % Monocytes % 8.5 (0.0-12.0) % Eosinophils % 0.0 (0.00-5.0) % Basophils % 0.1 (0.0-0.4) % Absolute Granulocytes 7.37 H (1.4-6.9) x10^3/uL Basophils # 0.01 (0-0.4) x10^3/uL Sodium 134 L (137-145) mmol/L Potassium 3.4 L 3.6 (3.5-5.1) mmol/L Chloride 97 L (98-107) mmol/L Carbon Dioxide 31 H (22-30) mmol/L Anion Gap 9.9 (5-15) MEQ/L BUN 27 H (7-17) mg/dL Creatinine 0.88 (0.52-1.04) mg/dL Estimated GFR 71.5 ML/MIN Glucose 129 H (74-106) mg/dL Calcium 8.5 (8.4-10.2) mg/dL Total Bilirubin 0.30 (0.2-1.3) mg/dL AST 40 H (14-36) U/L ALT 24 (0-35) U/L Alkaline Phosphatase 63 (38-126) U/L Serum Total Protein 6.9 (6.3-8.2) g/dL Albumin 3.5 (3.5-5.0) g/dL Slides for Path Review YES 08/21/23 08/22/23 Range/Units 15:30 04:14 WBC 8.8 (4.0-10.5) x10^3/uL RBC 3.87 L (4.1-5.4) x10^6/uL Hgb 11.3 L (12.0-16.0) g/dL Hct 37.8 (35-47) % MCV 97.7 (78-100) fL MCH 29.2 (26-32) pg MCHC 29.9 L (32-36) g/dL RDW 14.9 H (11.5-14.0) % Plt Count 170 (150-450) x10^3/uL MPV 10.7 (7.5-11.0) fL Gran % 89.3 H (36.0-66.0) % Immature Gran % (Auto) 0.7 H (0.00-0.4) % Nucleat RBC Rel Count 0.0 (0.00-0.1) % Eos # (Auto) 0 (0-0.5) x10^3/uL Immature Gran # (Auto) 0.06 H (0.00-0.03) x10^3u/L Absolute Lymphs (auto) 0.40 L (1.0-4.6) x10^3/uL Absolute Monos (auto) 0.47 (0.0-1.3) x10^3/uL Absolute Nucleated RBC 0.00 (0.00-0.01) x10^3u/L Lymphocytes % 4.5 L (24.0-44.0) % Monocytes % 5.3 (0.0-12.0) % Eosinophils % 0.0 (0.00-5.0) % Basophils % 0.2 (0.0-0.4) % Absolute Granulocytes 7.87 H (1.4-6.9) x10^3/uL Basophils # 0.02 (0-0.4) x10^3/uL Sodium (137-145) mmol/L Potassium 3.5 (3.5-5.1) mmol/L Chloride (98-107) mmol/L Carbon Dioxide (22-30) mmol/L Anion Gap (5-15) MEQ/L BUN (7-17) mg/dL Creatinine (0.52-1.04) mg/dL Estimated GFR ML/MIN Glucose (74-106) mg/dL Calcium (8.4-10.2) mg/dL Total Bilirubin (0.2-1.3) mg/dL AST (14-36) U/L ALT (0-35) U/L Alkaline Phosphatase (38-126) U/L Serum Total Protein (6.3-8.2) g/dL Albumin (3.5-5.0) g/dL Slides for Path Review Radiology Exams: Radiology Procedures Category Date Time Status CHEST 2 VIEWS (PA AND LAT) Stat Exams 08/20/23 17:41 Completed Multi-Disciplinary Progress Notes: Multi-Disciplinary Progress Notes 08/21/23 23:59 Respiratory Note by Sharon Workman RT called to patient bedside to evaluate patient for increased SOB. Pt's heart rate was 113, rr was in the 30s and SpO2 was 95-93%. Pt is on bipap with current settings of 18/8, rr 20 and fiO2 of 40%. Pt was given scheduled neb tx at this time. Increase in crackles throughout both posterior lungs noted. RN, Anson and Dr Jeter was notified. Initialized on 08/21/23 23:59 - END OF NOTE 08/21/23 13:46 Respiratory Note by Kenney Cristobal Pt needed to take BiPAP off to eat lunch, we put her on 5L NC but SpO2 >88, I put pt on 7L oxymizer and SpO2 stayed above 90%. Initialized on 08/21/23 13:46 - END OF NOTE Assessment/Plan (1) UTI (urinary tract infection) Current Visit: Yes Status: Acute Assessment & Plan: -UA suspicious for UTI, will start on ceftriaxone empirically, follow culture Code(s): N39.0 - URINARY TRACT INFECTION, SITE NOT SPECIFIED (2) Acute kidney injury Current Visit: Yes Status: Acute Assessment & Plan: Creatinine elevated at 1.0 likely from prerenal azotemia 1. Trial of IVFs 2. Hold diuretics 3. Follow I/Os 4. Watch electrolytes, creatinine closely 08/21: -Resolved Code(s): N17.9 - ACUTE KIDNEY FAILURE, UNSPECIFIED (3) Influenza with pneumonia Current Visit: Yes Status: Acute Assessment & Plan: Influenza A positive but with R multilobar pneumonia 1. Admit to hospital 2. Duonebs/supplemental oxygen 3. Tamiflu 4. Empiric antibiotics with rocephin/zithromax 5. Follow up sputum cultures 6. IVFs 7. Monitor O2 sats with ambulation 08/21: -Continue rocephin/azithromycin/Tamiflu 08/22: -Improved aeration, will wean steroids/oxygen as tolerated -Continue abx/tamiflu -CT chest negative for PE, findings include" "Impression: 1. Continued negative pulmonary embolus. 2. New diffuse consolidating/nonconsolidating airspace disease, right lung greater than left. Small left and tiny right effusions presumed reactive. 3. New mediastinal and right hilar lymphadenopathy also presumed reactive. 4. Again abnormal distal esophageal wall thickening, possible esophagitis. 5. Chronic findings including fatty liver, heterogeneous right adrenal gland mass, bilateral renal cysts, chronic bony findings, and old granulomatous disease." (4) SOB (shortness of breath) Current Visit: No Status: Acute Onset Date: ~04/25/18 Assessment & Plan: Secondary to influenza/pneumonia Code(s): R06.02 - SHORTNESS OF BREATH (5) History of stroke Current Visit: No Status: Chronic Assessment & Plan: -noted, continue appropriate home meds Code(s): Z86.73 - PRSNL HX OF TIA (TIA), AND CEREB INFRC W/O RESID DEFICITS (6) Tobacco dependence Current Visit: No Status: Chronic Assessment & Plan: -Noted, nicotine patch Code(s): F17.200 - NICOTINE DEPENDENCE, UNSPECIFIED, UNCOMPLICATED (7) Seizure disorder Current Visit: Yes Status: Acute Assessment & Plan: -seizure precautions -continue appropriate home medications Code(s): G40.909 - EPILEPSY, UNSP, NOT INTRACTABLE, WITHOUT STATUS EPILEPTICUS Code(s): N39.0 - URINARY TRACT INFECTION, SITE NOT SPECIFIED (2) Acute kidney injury Current Visit: Yes Status: Acute Code(s): N17.9 - ACUTE KIDNEY FAILURE, UNSPECIFIED (3) Influenza with pneumonia Current Visit: Yes Status: Acute (4) SOB (shortness of breath) Current Visit: No Status: Acute Onset Date: ~04/25/18 Code(s): R06.02 - SHORTNESS OF BREATH (5) History of stroke Current Visit: No Status: Chronic Code(s): Z86.73 - PRSNL HX OF TIA (TIA), AND CEREB INFRC W/O RESID DEFICITS (6) Tobacco dependence Current Visit: No Status: Chronic Code(s): F17.200 - NICOTINE DEPENDENCE, UNSPECIFIED, UNCOMPLICATED (7) Seizure disorder Current Visit: Yes Status: Acute Code(s): G40.909 - EPILEPSY, UNSP, NOT INTRACTABLE, WITHOUT STATUS EPILEPTICUS
[2023-08-22] MEDS: DUONEB 0.5-3 MG/3 ml Neb IH SCH ×3 (05:55→19:16)
[2023-08-22 07:17] LABS: Slide Review 1 YES
[2023-08-22] MEDS ORDERED: PHARMACY DOSING REQUEST MC ONE (08:00)
[2023-08-22] MEDS ORDERED: Sodium Bicarbonate 50 MEQ/50 ML VIAL*** 150 MEQ in Dextrose 5%/Water IV Soln. 1000 ML 1... IV SCH (09:00)
--- NOTE | 2023-08-22 09:58 | XRAY ---
Indication: Short of breath. Elevated d-dimer. Multiple contiguous axial images obtained through the chest using 80 cc Isovue 370 contrast and PE protocol. Comparison: November 13, 2019 Good opacification of the pulmonary arteries to include the lobar and segmental branches. No pulmonary embolus. Heart not enlarged again with mitral valve calcifications. Aorta minimally arteriosclerotic without aneurysm/dissection. New prominent mediastinal and right hilar lymphadenopathy, largest subcarinal measuring at least 2.5 x 3.8 cm. Stable small left hilar calcified nodes. Again abnormal distal esophageal circumferential wall thickening, probable esophagitis. Lungs demonstrate new diffuse right lung and left mid to lower lung patchy consolidating/nonconsolidating airspace disease. Moderate left and tiny right effusions with left lower lobe compressive atelectasis. Stable incidental small lingula calcified granuloma. Bony thorax again demonstrates osteopenia, mild degenerative changes throughout the spine, T10/T11 kyphoplasty, and superior T4 Schmorl node. Also superior L2 Schmorl node not previously imaged. Limited upper abdomen demonstrates grossly stable fatty liver, hepatic/splenic calcified granulomas, heterogeneous right adrenal gland mass, and bilateral renal cysts. Impression: 1. Continued negative pulmonary embolus. 2. New diffuse consolidating/nonconsolidating airspace disease, right lung greater than left. Small left and tiny right effusions presumed reactive. 3. New mediastinal and right hilar lymphadenopathy also presumed reactive. 4. Again abnormal distal esophageal wall thickening, possible esophagitis. 5. Chronic findings including fatty liver, heterogeneous right adrenal gland mass, bilateral renal cysts, chronic bony findings, and old granulomatous disease.
[2023-08-22] MEDS: MYSOLINE 50MG PO SCH ×2 (10:36→21:47)
[2023-08-22] MEDS: ZOLOFT 50 MG TABLET PO SCH (10:36)
[2023-08-22] MEDS: ENOXAPARIN SODIUM SQ SCH (10:36)
[2023-08-22] MEDS: Tamiflu 75MG Capsule PO SCH ×2 (10:36→21:47)
[2023-08-22] MEDS: ZOCOR 20MG PO SCH (10:36)
[2023-08-22] MEDS: lamICTAL 100MG TABLET PO SCH ×2 (10:37→21:48)
[2023-08-22] MEDS: solu-MEDROL 40 MG, Sterile H2O 10 ml 1 ML IV SCH ×2 (10:37)
[2023-08-22] MEDS: ZONISAMIDE PO SCH ×2 (10:37→21:47)
[2023-08-22] MEDS: NICOTINE PATCH 7MG TD SCH (10:47)
[2023-08-22] MEDS: ROCEPHIN 1 GM / 100 ML NaCl 1 GM/100 ML IVPB IV SCH (18:45)
[2023-08-22] MEDS: Zithromax 500 MG/ 250 ML NaCl Premix 500 MG/250 ML IVPB IV SCH (20:04)
[2023-08-23] MEDS: DUONEB 0.5-3 MG/3 ml Neb IH SCH ×4 (01:49→18:40)
[2023-08-23 05:20] LABS: Absolute Neutrophil Ct (ANC) 4.43 x10^3/uL (1.4-6.9); BASOPHIL % 0.4 % (0.0-0.4); Basophil (Absolute #) 0.02 x10^3/uL (0-0.4); Eosinophil % 0.2 % (0.00-5.0); Eosinophil (Absolute #) 0.01 x10^3/uL (0-0.5); Hematocrit 34.9 % (35-47); Hemoglobin 10.4 g/dL (12.0-16.0); IMMATURE GRAN # 0.03 x10^3u/L (0.00-0.03); IMMATURE GRAN % 0.5 % (0.00-0.4); Lymphocytes % 12.3 % (24.0-44.0); Mean Cell Volume 99.1 fL (78-100); Mean Corpuscular Hemoglobin 29.5 pg (26-32); Mean Corpuscular Hgb Concent. 29.8 g/dL (32-36); Mean Platelet Volume 10.3 fL (7.5-11.0); Monocyte (Absolute #) 0.51 x10^3/uL (0.0-1.3); Monocytes % 8.9 % (0.0-12.0); NUCLEATED RBC # 0.02 x10^3u/L (0.00-0.01); NUCLEATED RBC % 0.4 % (0.00-0.1); Neutrophil % 77.7 % (36.0-66.0); Platelet Count 160 x10^3/uL (150-450); Red Blood Count 3.52 x10^6/uL (4.1-5.4); Red Cell Distribution Width 14.9 % (11.5-14.0); White Blood Count 5.7 x10^3/uL (4.0-10.5)
[2023-08-23 05:37] LABS: ALBUMIN 3.3 g/dL (3.5-5.0); ANION GAP 6.6 MEQ/L (5-15); BILIRUBIN,TOTAL 0.4 mg/dL (0.2-1.3); Calcium 8.5 mg/dL (8.4-10.2); Creatinine 1 0.83 mg/dL (0.52-1.04); EST GLOMERULAR FILTRATION RATE 76.7 ML/MIN; Potassium 4.5 mmol/L (3.5-5.1); Total Protein 6.5 g/dL (6.3-8.2)
--- NOTE | 2023-08-23 05:51 | PCM.NOTE ---
Date and Time: 08/23/23 0549 Subjective Assessment: Ms. Vinson is a 68 year old female with a past medical history significant for L breast cancer status post resection/chemo, hyperlipidemia, previous CVA and chronic O2 usage who presented to ED 08/20/23 with complaints of increasing shortness of breath associated with fever up to 102. She tested positive for influenza but CXR also demonstrated R upper/middle/lower lobe infiltrates. She has been hypoxic with O2 sats in the 80s that worsens with movement. UA also suspicious for UTI. She has been given antibiotics, Tamiflu, and supplemental oxygen. Admitted with UTI, influenza, and pneumonia. Current treatment with ceftriaxone, azithromycin, solumedrol. Of note, patient became hypotensive and started on levophed drip, later able to wean off. BIPAP also initiated and weaned off. 08/23/23: Met with patient bedside. Endorses improvement of dyspnea. Cough is productive with green sputum. Patient has complaints of back pain this morning. Still requiring 10L oxymizer. Denies fever, cp, abdominal pain, HEALY, dizziness, N/V/D. - Review of Systems Constitutional: No Symptoms Eyes: No Symptoms Ears, Nose, & Throat: No Symptoms Respiratory: Cough, Short Of Breath Cardiac: No Symptoms Abdominal/Gastrointestinal: No Symptoms Genitourinary Symptoms: No Symptoms Musculoskeletal: Back Pain Skin: No Symptoms Neurological: No Symptoms Psychological: No Symptoms Endocrine: No Symptoms Hematologic/Lymphatic: No Symptoms Immunological/Allergic: No Symptoms Objective Exam General Appearance: no apparent distress Neurologic Exam: alert, oriented x 3, cooperative Skin Exam: normal color Wound Assessment: Skin/Wound Assessment Wound/Incision Assessment Start: 08/20/23 21:35 Text: Status: Active Freq: Q6H Protocol: Document 08/23/23 01:00 (Rec: 08/23/23 01:03 [id number]) Wound Photo Photo Taken No Eye Exam: PERRL Ears, Nose, Throat Exam: normal ENT inspection Neck Exam: normal inspection Respiratory Exam: crackles/rales Cardiovascular Exam: regular rate/rhythm, normal heart sounds Gastrointestinal/Abdomen Exam: soft, normal bowel sounds Extremity Exam: normal inspection Back Exam: normal inspection Pelvic Exam: deferred Rectal Exam: deferred OBJECTIVE DATA Vital Signs: Vital Signs - 24 hr Temp Pulse Resp BP BP Pulse Ox 08/23/23 04:00 98.3 F 94 H 33 H 105/51 90 L 08/23/23 01:52 100 08/23/23 00:00 97.7 F 82 20 96/57 100 08/22/23 19:24 98.4 F 93 H 91/58 08/22/23 19:23 83 24 85 L 08/22/23 16:17 97.1 F 90 20 102/58 92 L 08/22/23 13:15 96 H 24 88/53 94 L 08/22/23 13:00 95 H 24 93/41 92 L 08/22/23 12:46 100 H 19 94/65 96 08/22/23 12:31 106 H 23 124/72 91 L 08/22/23 12:30 106 H 21 93 L 08/22/23 12:21 106 H 22 96 08/22/23 12:20 105 H 19 95 08/22/23 12:10 96 H 20 99 08/22/23 12:03 96 H 30 H 99 08/22/23 12:00 96 H 08/22/23 11:45 99 H 35 H 118/62 99 08/22/23 11:30 104 H 34 H 98/57 96 08/22/23 11:15 99 H 19 100/46 97 08/22/23 11:00 96 H 23 107/62 99 08/22/23 10:46 105 H 35 H 112/64 99 08/22/23 10:16 108 H 41 H 90/54 08/22/23 10:00 98 H 32 H 105/55 96 08/22/23 09:46 102 H 35 H 118/58 91 L 08/22/23 09:40 99 H 34 H 96 08/22/23 09:33 106 H 26 H 99 08/22/23 09:00 93/60 08/22/23 08:45 95 H 33 H 101/71 94 L 08/22/23 08:43 102 H 19 91 L 08/22/23 08:20 87 34 H 97 08/22/23 08:10 88 35 H 99 08/22/23 08:03 88 31 H 100 08/22/23 07:45 90 33 H 102/46 100 08/22/23 07:30 99 H 34 H 101/55 97 08/22/23 07:16 93 H 26 H 105/45 98 08/22/23 07:00 101 H 29 H 130/51 97 08/22/23 06:45 100 H 36 H 123/81 97 08/22/23 06:31 97 H 37 H 115/85 97 08/22/23 06:16 102 H 21 91/79 97 08/22/23 06:00 98 H 41 H 127/69 97 08/22/23 05:55 109 H 24 92 L Pain Assessment - Last Documented Pain Intensity 0 Intake and Output: Intake & Output 08/20/23 08/21/23 08/22/23 08/23/23 11:59 11:59 11:59 11:59 Intake Total 0 120 360 Output Total 1000 100 Balance 0 -880 260 Weight 73.2 kg 68 kg Lab Results: Lab Results-Last 24 Hours 08/22/23 08/22/23 08/23/23 Range/Units 04:14 06:50 05:05 WBC (4.0-10.5) x10^3/uL RBC (4.1-5.4) x10^6/uL Hgb (12.0-16.0) g/dL Hct (35-47) % MCV (78-100) fL MCH (26-32) pg MCHC (32-36) g/dL RDW (11.5-14.0) % Plt Count (150-450) x10^3/uL MPV (7.5-11.0) fL Gran % (36.0-66.0) % Immature Gran % (Auto) (0.00-0.4) % Nucleat RBC Rel Count (0.00-0.1) % Eos # (Auto) (0-0.5) x10^3/uL Immature Gran # (Auto) (0.00-0.03) x10^3u/L Absolute Lymphs (auto) (1.0-4.6) x10^3/uL Absolute Monos (auto) (0.0-1.3) x10^3/uL Absolute Nucleated RBC (0.00-0.01) x10^3u/L Lymphocytes % (24.0-44.0) % Monocytes % (0.0-12.0) % Eosinophils % (0.00-5.0) % Basophils % (0.0-0.4) % Absolute Granulocytes (1.4-6.9) x10^3/uL Basophils # (0-0.4) x10^3/uL D-Dimer 1.18 H* (0.0-0.50) mg/L Sodium 135 L (137-145) mmol/L Potassium 4.5 (3.5-5.1) mmol/L Chloride 101 (98-107) mmol/L Carbon Dioxide 32 H (22-30) mmol/L Anion Gap 6.6 (5-15) MEQ/L BUN 19 H (7-17) mg/dL Creatinine 0.83 (0.52-1.04) mg/dL Estimated GFR 76.7 ML/MIN Glucose 86 (74-106) mg/dL Calcium 8.5 (8.4-10.2) mg/dL Total Bilirubin 0.40 (0.2-1.3) mg/dL AST 99 H (14-36) U/L ALT 74 H (0-35) U/L Alkaline Phosphatase 82 (38-126) U/L Serum Total Protein 6.5 (6.3-8.2) g/dL Albumin 3.3 L (3.5-5.0) g/dL Slides for Path Review YES 08/23/23 Range/Units 05:05 WBC 5.7 (4.0-10.5) x10^3/uL RBC 3.52 L (4.1-5.4) x10^6/uL Hgb 10.4 L (12.0-16.0) g/dL Hct 34.9 L (35-47) % MCV 99.1 (78-100) fL MCH 29.5 (26-32) pg MCHC 29.8 L (32-36) g/dL RDW 14.9 H (11.5-14.0) % Plt Count 160 (150-450) x10^3/uL MPV 10.3 (7.5-11.0) fL Gran % 77.7 H (36.0-66.0) % Immature Gran % (Auto) 0.5 H (0.00-0.4) % Nucleat RBC Rel Count 0.4 H (0.00-0.1) % Eos # (Auto) 0.01 (0-0.5) x10^3/uL Immature Gran # (Auto) 0.03 (0.00-0.03) x10^3u/L Absolute Lymphs (auto) 0.70 L (1.0-4.6) x10^3/uL Absolute Monos (auto) 0.51 (0.0-1.3) x10^3/uL Absolute Nucleated RBC 0.02 H (0.00-0.01) x10^3u/L Lymphocytes % 12.3 L (24.0-44.0) % Monocytes % 8.9 (0.0-12.0) % Eosinophils % 0.2 (0.00-5.0) % Basophils % 0.4 (0.0-0.4) % Absolute Granulocytes 4.43 (1.4-6.9) x10^3/uL Basophils # 0.02 (0-0.4) x10^3/uL D-Dimer (0.0-0.50) mg/L Sodium (137-145) mmol/L Potassium (3.5-5.1) mmol/L Chloride (98-107) mmol/L Carbon Dioxide (22-30) mmol/L Anion Gap (5-15) MEQ/L BUN (7-17) mg/dL Creatinine (0.52-1.04) mg/dL Estimated GFR ML/MIN Glucose (74-106) mg/dL Calcium (8.4-10.2) mg/dL Total Bilirubin (0.2-1.3) mg/dL AST (14-36) U/L ALT (0-35) U/L Alkaline Phosphatase (38-126) U/L Serum Total Protein (6.3-8.2) g/dL Albumin (3.5-5.0) g/dL Slides for Path Review Radiology Exams: Radiology Procedures Category Date Time Status CHEST WITH CONTRAST [CT] Routine Exams 08/22/23 08:23 Completed Assessment/Plan (1) UTI (urinary tract infection) Current Visit: Yes Status: Acute Assessment & Plan: -UA suspicious for UTI, will start on ceftriaxone empirically, follow culture 08/23: -Ucult cancelled, unsure why, lab to investigate Code(s): N39.0 - URINARY TRACT INFECTION, SITE NOT SPECIFIED (2) Acute kidney injury Current Visit: Yes Status: Acute Assessment & Plan: Creatinine elevated at 1.0 likely from prerenal azotemia 1. Trial of IVFs 2. Hold diuretics 3. Follow I/Os 4. Watch electrolytes, creatinine closely 08/21: -Resolved Code(s): N17.9 - ACUTE KIDNEY FAILURE, UNSPECIFIED (3) Influenza with pneumonia Current Visit: Yes Status: Acute Assessment & Plan: Influenza A positive but with R multilobar pneumonia 1. Admit to hospital 2. Duonebs/supplemental oxygen 3. Tamiflu 4. Empiric antibiotics with rocephin/zithromax 5. Follow up sputum cultures 6. IVFs 7. Monitor O2 sats with ambulation 08/21: -Continue rocephin/azithromycin/Tamiflu 08/22: -Improved aeration, will wean steroids/oxygen as tolerated -Continue abx/tamiflu -CT chest negative for PE, findings include" "Impression: 1. Continued negative pulmonary embolus. 2. New diffuse consolidating/nonconsolidating airspace disease, right lung greater than left. Small left and tiny right effusions presumed reactive. 3. New mediastinal and right hilar lymphadenopathy also presumed reactive. 4. Again abnormal distal esophageal wall thickening, possible esophagitis. 5. Chronic findings including fatty liver, heterogeneous right adrenal gland mass, bilateral renal cysts, chronic bony findings, and old granulomatous disease." 08/23: -Pulm consult, increased oxygen requirements -Continue above treatment (4) SOB (shortness of breath) Current Visit: No Status: Acute Onset Date: ~04/25/18 Assessment & Plan: Secondary to influenza/pneumonia Code(s): R06.02 - SHORTNESS OF BREATH (5) History of stroke Current Visit: No Status: Chronic Assessment & Plan: -noted, continue appropriate home meds Code(s): Z86.73 - PRSNL HX OF TIA (TIA), AND CEREB INFRC W/O RESID DEFICITS (6) Tobacco dependence Current Visit: No Status: Chronic Assessment & Plan: -Noted, nicotine patch Code(s): F17.200 - NICOTINE DEPENDENCE, UNSPECIFIED, UNCOMPLICATED (7) Seizure disorder Current Visit: Yes Status: Acute Assessment & Plan: -seizure precautions -continue appropriate home medications Code(s): G40.909 - EPILEPSY, UNSP, NOT INTRACTABLE, WITHOUT STATUS EPILEPTICUS Code(s): N39.0 - URINARY TRACT INFECTION, SITE NOT SPECIFIED (2) Acute kidney injury Code(s): N39.0 - URINARY TRACT INFECTION, SITE NOT SPECIFIED (2) Acute kidney injury Current Visit: Yes Status: Acute Code(s): N17.9 - ACUTE KIDNEY FAILURE, UNSPECIFIED (3) Influenza with pneumonia Current Visit: Yes Status: Acute (4) SOB (shortness of breath) Current Visit: No Status: Acute Onset Date: ~04/25/18 Code(s): R06.02 - SHORTNESS OF BREATH (5) History of stroke Current Visit: No Status: Chronic Code(s): Z86.73 - PRSNL HX OF TIA (TIA), AND CEREB INFRC W/O RESID DEFICITS (6) Tobacco dependence Current Visit: No Status: Chronic Code(s): F17.200 - NICOTINE DEPENDENCE, UNSPECIFIED, UNCOMPLICATED (7) Seizure disorder Current Visit: Yes Status: Acute Code(s): G40.909 - EPILEPSY, UNSP, NOT INTRACTABLE, WITHOUT STATUS EPILEPTICUS
[2023-08-23] MEDS: lamICTAL 100MG TABLET PO SCH ×2 (09:43→21:24)
[2023-08-23] MEDS: MYSOLINE 50MG PO SCH ×2 (09:43→21:23)
[2023-08-23] MEDS: Acidophilus TABLET PO SCH (09:43)
[2023-08-23] MEDS: ZOLOFT 50 MG TABLET PO SCH (09:44)
[2023-08-23] MEDS: Tamiflu 75MG Capsule PO SCH ×2 (09:44→21:24)
[2023-08-23] MEDS: ZONISAMIDE PO SCH ×2 (09:45→21:24)
[2023-08-23] MEDS: ZOCOR 20MG PO SCH (09:45)
[2023-08-23] MEDS: ENOXAPARIN SODIUM SQ SCH (09:45)
[2023-08-23] MEDS: solu-MEDROL 40 MG, Sterile H2O 10 ml 1 ML IV SCH ×2 (09:46)
[2023-08-23] MEDS: NICOTINE PATCH 7MG TD SCH (13:38)
[2023-08-23 15:44] LABS: Appearance Clear (Clear); Bacteria None Seen /HPF (None Seen); Bilirubin Negative (Negative); Blood Negative (Negative); Epithelial Cells None Seen /HPF (None Seen); Glucose, Urine Negative (Negative); Hyaline Casts NONE SEEN /LPF (0-2); Ketones Trace (Negative); Leukocyte Esterase Trace (Negative); Nitrite Negative (Negative); Protein,Urine Dip 100 (Negative); Specific Gravity 1.025 (1.005-1.030); WBC 0-2 /HPF (0-5)
[2023-08-23 15:45] LABS: ADD URINE CULTURE? YES (NO)
[2023-08-23] MEDS: ROCEPHIN 1 GM / 100 ML NaCl 1 GM/100 ML IVPB IV SCH (19:41)
[2023-08-23] MEDS: Zithromax 500 MG/ 250 ML NaCl Premix 500 MG/250 ML IVPB IV SCH (20:18)
[2023-08-24] MEDS: DUONEB 0.5-3 MG/3 ml Neb IH SCH ×4 (01:23→19:04)
[2023-08-24 04:54] LABS: Absolute Neutrophil Ct (ANC) 3.98 x10^3/uL (1.4-6.9); BASOPHIL % 0.4 % (0.0-0.4); Basophil (Absolute #) 0.02 x10^3/uL (0-0.4); Eosinophil % 0.2 % (0.00-5.0); Eosinophil (Absolute #) 0.01 x10^3/uL (0-0.5); Hematocrit 37.9 % (35-47); Hemoglobin 11.2 g/dL (12.0-16.0); IMMATURE GRAN # 0.06 x10^3u/L (0.00-0.03); IMMATURE GRAN % 1.1 % (0.00-0.4); Lymphocyte (Absolute #) 0.83 x10^3/uL (1.0-4.6); Lymphocytes % 15.4 % (24.0-44.0); Mean Cell Volume 99.5 fL (78-100); Mean Corpuscular Hemoglobin 29.4 pg (26-32); Mean Corpuscular Hgb Concent. 29.6 g/dL (32-36); Mean Platelet Volume 10.5 fL (7.5-11.0); Monocyte (Absolute #) 0.48 x10^3/uL (0.0-1.3); Monocytes % 8.9 % (0.0-12.0); Platelet Count 188 x10^3/uL (150-450); Red Blood Count 3.81 x10^6/uL (4.1-5.4); Red Cell Distribution Width 14.8 % (11.5-14.0); White Blood Count 5.4 x10^3/uL (4.0-10.5)
[2023-08-24 05:20] LABS: ALBUMIN 3.7 g/dL (3.5-5.0); ANION GAP 8.5 MEQ/L (5-15); BILIRUBIN,TOTAL 0.5 mg/dL (0.2-1.3); Creatinine 1 0.79 mg/dL (0.52-1.04); EST GLOMERULAR FILTRATION RATE 81.4 ML/MIN; Potassium 4.4 mmol/L (3.5-5.1); Total Protein 7.2 g/dL (6.3-8.2)
--- NOTE | 2023-08-24 05:23 | PCM.NOTE ---
Date and Time: 08/24/23 0519 Subjective Assessment: Ms. Vinson is a 68 year old female with a past medical history significant for L breast cancer status post resection/chemo, hyperlipidemia, previous CVA and chronic O2 usage who presented to ED 08/20/23 with complaints of increasing shortness of breath associated with fever up to 102. She tested positive for influenza but CXR also demonstrated R upper/middle/lower lobe infiltrates. CT chest negative for PE, demonstrating new diffuse consolidating/nonconsolidating airspace disease, right lung greater than left. Small left and tiny right effusions, and 3. New mediastinal and right hilar lymphadenopathy. She has been hypoxic with O2 sats in the 80s that worsens with movement. UA also suspicious for UTI. She has been given antibiotics, Tamiflu, and supplemental oxygen. Admitted with UTI, influenza, and pneumonia. Current treatment with ceftriaxone, azithromycin, solumedrol. Of note, patient became hypotensive and started on levophed drip, later able to wean off. BIPAP also initiated and weaned off. Pulmonology consulted. 08/24: Met with patient bedside. Endorses improvement in dyspnea and cough. Still requiring 8.5L on the oxymizer. Pulm consult pending. Denies fever, cp, abdominal pain, HEALY, dizziness, N/V/D. - Review of Systems Constitutional: No Symptoms Eyes: No Symptoms Ears, Nose, & Throat: No Symptoms Respiratory: Cough, Short Of Breath Cardiac: No Symptoms Abdominal/Gastrointestinal: No Symptoms Genitourinary Symptoms: No Symptoms Musculoskeletal: No Symptoms Skin: No Symptoms Neurological: No Symptoms Psychological: No Symptoms Endocrine: No Symptoms Hematologic/Lymphatic: No Symptoms Immunological/Allergic: No Symptoms Objective Exam General Appearance: no apparent distress Neurologic Exam: alert, oriented x 3, cooperative Skin Exam: normal color Eye Exam: PERRL Ears, Nose, Throat Exam: normal ENT inspection Neck Exam: normal inspection Respiratory Exam: diminished breath sounds, crackles/rales Cardiovascular Exam: regular rate/rhythm, normal heart sounds Gastrointestinal/Abdomen Exam: soft, normal bowel sounds Extremity Exam: normal inspection Back Exam: normal inspection Pelvic Exam: deferred Rectal Exam: deferred OBJECTIVE DATA Vital Signs: Vital Signs - 24 hr Temp Pulse Resp BP Pulse Ox 08/24/23 01:26 94 H 24 96 08/23/23 23:51 97.9 F 83 19 95/58 97 08/23/23 20:00 97.8 F 84 22 96/53 99 08/23/23 18:43 88 26 H 99 08/23/23 16:00 97.9 F 86 17 101/58 98 08/23/23 13:57 93 L 08/23/23 12:00 97.6 F 84 20 100/62 95 08/23/23 08:07 85 22 94 L 08/23/23 08:00 98.4 F 84 14 101/54 96 Pain Assessment - Last Documented Pain Intensity 0 Intake and Output: Intake & Output 08/21/23 08/22/23 08/23/23 08/24/23 11:59 11:59 11:59 11:59 Intake Total 0 120 360 480 Output Total 1000 100 Balance 0 -880 260 480 Weight 73.2 kg 68 kg 68 kg Lab Results: Lab Results-Last 24 Hours 08/23/23 08/23/23 08/23/23 Range/Units 05:05 05:05 15:19 WBC 5.7 (4.0-10.5) x10^3/uL RBC 3.52 L (4.1-5.4) x10^6/uL Hgb 10.4 L (12.0-16.0) g/dL Hct 34.9 L (35-47) % MCV 99.1 (78-100) fL MCH 29.5 (26-32) pg MCHC 29.8 L (32-36) g/dL RDW 14.9 H (11.5-14.0) % Plt Count 160 (150-450) x10^3/uL MPV 10.3 (7.5-11.0) fL Gran % 77.7 H (36.0-66.0) % Immature Gran % (Auto) 0.5 H (0.00-0.4) % Nucleat RBC Rel Count 0.4 H (0.00-0.1) % Eos # (Auto) 0.01 (0-0.5) x10^3/uL Immature Gran # (Auto) 0.03 (0.00-0.03) x10^3u/L Absolute Lymphs (auto) 0.70 L (1.0-4.6) x10^3/uL Absolute Monos (auto) 0.51 (0.0-1.3) x10^3/uL Absolute Nucleated RBC 0.02 H (0.00-0.01) x10^3u/L Lymphocytes % 12.3 L (24.0-44.0) % Monocytes % 8.9 (0.0-12.0) % Eosinophils % 0.2 (0.00-5.0) % Basophils % 0.4 (0.0-0.4) % Absolute Granulocytes 4.43 (1.4-6.9) x10^3/uL Basophils # 0.02 (0-0.4) x10^3/uL Sodium 135 L (137-145) mmol/L Potassium 4.5 (3.5-5.1) mmol/L Chloride 101 (98-107) mmol/L Carbon Dioxide 32 H (22-30) mmol/L Anion Gap 6.6 (5-15) MEQ/L BUN 19 H (7-17) mg/dL Creatinine 0.83 (0.52-1.04) mg/dL Estimated GFR 76.7 ML/MIN Glucose 86 (74-106) mg/dL Calcium 8.5 (8.4-10.2) mg/dL Total Bilirubin 0.40 (0.2-1.3) mg/dL AST 99 H (14-36) U/L ALT 74 H (0-35) U/L Alkaline Phosphatase 82 (38-126) U/L Serum Total Protein 6.5 (6.3-8.2) g/dL Albumin 3.3 L (3.5-5.0) g/dL Urine Color Dark Yellow A (Yellow) Urine Appearance Clear (Clear) Urine pH 6.0 (4.6-8.0) Ur Specific Watts 1.025 (1.005-1.030) Urine Protein 100 A (Negative) Urine Glucose (UA) Negative (Negative) mg/dL Urine Ketones Trace A (Negative) Urine Blood Negative (Negative) Urine Nitrite Negative (Negative) Urine Bilirubin Negative (Negative) Urine Urobilinogen 1.0 A (0.2) mg/dL Ur Leukocyte Esterase Trace A (Negative) U Hyaline Cast (Auto) NONE SEEN (0-2) /LPF Urine Microscopic RBC 3-5 (0-5) /HPF Urine Microscopic WBC 0-2 (0-5) /HPF Ur Epithelial Cells None Seen (None Seen) /HPF Urine Bacteria None Seen (None Seen) /HPF Urine Culture Reflexed YES (NO) 08/24/23 Range/Units 04:25 WBC 5.4 (4.0-10.5) x10^3/uL RBC 3.81 L (4.1-5.4) x10^6/uL Hgb 11.2 L (12.0-16.0) g/dL Hct 37.9 (35-47) % MCV 99.5 (78-100) fL MCH 29.4 (26-32) pg MCHC 29.6 L (32-36) g/dL RDW 14.8 H (11.5-14.0) % Plt Count 188 (150-450) x10^3/uL MPV 10.5 (7.5-11.0) fL Gran % 74.0 H (36.0-66.0) % Immature Gran % (Auto) 1.1 H (0.00-0.4) % Nucleat RBC Rel Count 0.0 (0.00-0.1) % Eos # (Auto) 0.01 (0-0.5) x10^3/uL Immature Gran # (Auto) 0.06 H (0.00-0.03) x10^3u/L Absolute Lymphs (auto) 0.83 L (1.0-4.6) x10^3/uL Absolute Monos (auto) 0.48 (0.0-1.3) x10^3/uL Absolute Nucleated RBC 0.00 (0.00-0.01) x10^3u/L Lymphocytes % 15.4 L (24.0-44.0) % Monocytes % 8.9 (0.0-12.0) % Eosinophils % 0.2 (0.00-5.0) % Basophils % 0.4 (0.0-0.4) % Absolute Granulocytes 3.98 (1.4-6.9) x10^3/uL Basophils # 0.02 (0-0.4) x10^3/uL Sodium (137-145) mmol/L Potassium (3.5-5.1) mmol/L Chloride (98-107) mmol/L Carbon Dioxide (22-30) mmol/L Anion Gap (5-15) MEQ/L BUN (7-17) mg/dL Creatinine (0.52-1.04) mg/dL Estimated GFR ML/MIN Glucose (74-106) mg/dL Calcium (8.4-10.2) mg/dL Total Bilirubin (0.2-1.3) mg/dL AST (14-36) U/L ALT (0-35) U/L Alkaline Phosphatase (38-126) U/L Serum Total Protein (6.3-8.2) g/dL Albumin (3.5-5.0) g/dL Urine Color (Yellow) Urine Appearance (Clear) Urine pH (4.6-8.0) Ur Specific Watts (1.005-1.030) Urine Protein (Negative) Urine Glucose (UA) (Negative) mg/dL Urine Ketones (Negative) Urine Blood (Negative) Urine Nitrite (Negative) Urine Bilirubin (Negative) Urine Urobilinogen (0.2) mg/dL Ur Leukocyte Esterase (Negative) U Hyaline Cast (Auto) (0-2) /LPF Urine Microscopic RBC (0-5) /HPF Urine Microscopic WBC (0-5) /HPF Ur Epithelial Cells (None Seen) /HPF Urine Bacteria (None Seen) /HPF Urine Culture Reflexed (NO) Radiology Exams: Radiology Procedures Category Date Time Status CHEST WITH CONTRAST [CT] Routine Exams 08/22/23 08:23 Completed Multi-Disciplinary Progress Notes: Multi-Disciplinary Progress Notes 08/23/23 14:50 Case Management Note by Karie Phelps NO CHANGE IN DC PLANS AT THIS TIME- PATIENT STILL HAS HIGH O2 DEMANDS AT THIS TIME Initialized on 08/23/23 14:50 - END OF NOTE Assessment/Plan (1) UTI (urinary tract infection) Current Visit: Yes Status: Acute Assessment & Plan: -UA suspicious for UTI, will start on ceftriaxone empirically, follow culture 08/23: -Ucult cancelled, unsure why, lab to investigate 08/24: -Ucult pending after recollection Code(s): N39.0 - URINARY TRACT INFECTION, SITE NOT SPECIFIED (2) Acute kidney injury Current Visit: Yes Status: Acute Assessment & Plan: Creatinine elevated at 1.0 likely from prerenal azotemia 1. Trial of IVFs 2. Hold diuretics 3. Follow I/Os 4. Watch electrolytes, creatinine closely 08/21: -Resolved Code(s): N17.9 - ACUTE KIDNEY FAILURE, UNSPECIFIED (3) Influenza with pneumonia Current Visit: Yes Status: Acute Assessment & Plan: Influenza A positive but with R multilobar pneumonia 1. Admit to hospital 2. Duonebs/supplemental oxygen 3. Tamiflu 4. Empiric antibiotics with rocephin/zithromax 5. Follow up sputum cultures 6. IVFs 7. Monitor O2 sats with ambulation 08/21: -Continue rocephin/azithromycin/Tamiflu 08/22: -Improved aeration, will wean steroids/oxygen as tolerated -Continue abx/tamiflu -CT chest negative for PE, findings include" "Impression: 1. Continued negative pulmonary embolus. 2. New diffuse consolidating/nonconsolidating airspace disease, right lung greater than left. Small left and tiny right effusions presumed reactive. 3. New mediastinal and right hilar lymphadenopathy also presumed reactive. 4. Again abnormal distal esophageal wall thickening, possible esophagitis. 5. Chronic findings including fatty liver, heterogeneous right adrenal gland mass, bilateral renal cysts, chronic bony findings, and old granulomatous disease." 08/23: -Pulm consult, increased oxygen requirements -Continue above treatment 08/24: -Pulm consult pending, patient still requiring 8.5L on oxymizer -Continue ceftriaxone/tamiflu for now (4) SOB (shortness of breath) Current Visit: No Status: Acute Onset Date: ~04/25/18 Assessment & Plan: Secondary to influenza/pneumonia Code(s): R06.02 - SHORTNESS OF BREATH (5) History of stroke Current Visit: No Status: Chronic Assessment & Plan: -noted, continue appropriate home meds Code(s): Z86.73 - PRSNL HX OF TIA (TIA), AND CEREB INFRC W/O RESID DEFICITS (6) Tobacco dependence Current Visit: No Status: Chronic Assessment & Plan: -Noted, nicotine patch Code(s): F17.200 - NICOTINE DEPENDENCE, UNSPECIFIED, UNCOMPLICATED (7) Seizure disorder Current Visit: Yes Status: Acute Assessment & Plan: -seizure precautions -continue appropriate home medications Code(s): N39.0 - URINARY TRACT INFECTION, SITE NOT SPECIFIED (2) Acute kidney injury Current Visit: Yes Status: Acute Code(s): N17.9 - ACUTE KIDNEY FAILURE, UNSPECIFIED (3) Influenza with pneumonia Current Visit: Yes Status: Acute (4) SOB (shortness of breath) Current Visit: No Status: Acute Onset Date: ~04/25/18 Code(s): R06.02 - SHORTNESS OF BREATH (5) History of stroke Current Visit: No Status: Chronic Code(s): Z86.73 - PRSNL HX OF TIA (TIA), AND CEREB INFRC W/O RESID DEFICITS (6) Tobacco dependence Current Visit: No Status: Chronic Code(s): F17.200 - NICOTINE DEPENDENCE, UNSPECIFIED, UNCOMPLICATED (7) Seizure disorder Current Visit: Yes Status: Acute Code(s): G40.909 - EPILEPSY, UNSP, NOT INTRACTABLE, WITHOUT STATUS EPILEPTICUS
[2023-08-24] MEDS: ZONISAMIDE PO SCH ×2 (09:19→22:49)
[2023-08-24] MEDS: Acidophilus TABLET PO SCH (09:20)
[2023-08-24] MEDS: Tamiflu 75MG Capsule PO SCH ×2 (09:20→22:49)
[2023-08-24] MEDS: ZOLOFT 50 MG TABLET PO SCH (09:20)
[2023-08-24] MEDS: lamICTAL 100MG TABLET PO SCH ×2 (09:20→22:49)
[2023-08-24] MEDS: ZOCOR 20MG PO SCH (09:20)
[2023-08-24] MEDS: MYSOLINE 50MG PO SCH ×2 (09:20→22:50)
[2023-08-24] MEDS: solu-MEDROL 40 MG, Sterile H2O 10 ml 1 ML IV SCH ×2 (09:21)
[2023-08-24] MEDS: ENOXAPARIN SODIUM SQ SCH (09:21)
[2023-08-24] MEDS: NICOTINE PATCH 7MG TD SCH (09:21)
[2023-08-24] MEDS: ROCEPHIN 1 GM / 100 ML NaCl 1 GM/100 ML IVPB IV SCH (19:30)
[2023-08-25] MEDS: DUONEB 0.5-3 MG/3 ml Neb IH SCH ×4 (01:47→19:38)
[2023-08-25 05:00] LABS: Absolute Neutrophil Ct (ANC) 4.18 x10^3/uL (1.4-6.9); BASOPHIL % 0.4 % (0.0-0.4); Basophil (Absolute #) 0.02 x10^3/uL (0-0.4); Eosinophil % 0.4 % (0.00-5.0); Eosinophil (Absolute #) 0.02 x10^3/uL (0-0.5); Hematocrit 34.4 % (35-47); Hemoglobin 10.3 g/dL (12.0-16.0); IMMATURE GRAN # 0.07 x10^3u/L (0.00-0.03); IMMATURE GRAN % 1.3 % (0.00-0.4); Lymphocytes % 12.7 % (24.0-44.0); Mean Cell Volume 98.6 fL (78-100); Mean Corpuscular Hemoglobin 29.5 pg (26-32); Mean Corpuscular Hgb Concent. 29.9 g/dL (32-36); Mean Platelet Volume 10.5 fL (7.5-11.0); Monocyte (Absolute #) 0.53 x10^3/uL (0.0-1.3); Monocytes % 9.6 % (0.0-12.0); NUCLEATED RBC # 0.04 x10^3u/L (0.00-0.01); NUCLEATED RBC % 0.7 % (0.00-0.1); Neutrophil % 75.6 % (36.0-66.0); Platelet Count 185 x10^3/uL (150-450); Red Blood Count 3.49 x10^6/uL (4.1-5.4); Red Cell Distribution Width 14.7 % (11.5-14.0); White Blood Count 5.5 x10^3/uL (4.0-10.5)
--- NOTE | 2023-08-25 05:26 | PCM.NOTE ---
Date and Time: 08/25/23523 Subjective Assessment: Ms. Vinson is a 68 year old female with a past medical history significant for L breast cancer status post resection/chemo, hyperlipidemia, previous CVA and chronic O2 usage who presented to ED 08/20/23 with complaints of increasing shortness of breath associated with fever up to 102. She tested positive for influenza but CXR also demonstrated R upper/middle/lower lobe infiltrates. CT chest negative for PE, demonstrating new diffuse consolidating/nonconsolidating airspace disease, right lung greater than left. Small left and tiny right effusions, and 3. New mediastinal and right hilar lymphadenopathy. She has been hypoxic with O2 sats in the 80s that worsens with movement. UA also suspicious for UTI. She has been given antibiotics, Tamiflu, and supplemental oxygen. Admitted with UTI, influenza, and pneumonia. Current treatment with ceftriaxone, azithromycin, solumedrol. Of note, patient became hypotensive and started on levophed drip, later able to wean off. BIPAP also initiated and weaned off. Pulmonology consulted, no changes to current medication regimen. 2: Met with patient bedside. Endorses improvement in aeration, cough continues with yellow sputum. Still feels pretty weak. Remains on oxymask 6L. Discussed rehab stay for strengthening, patient agreeable. Will have CM look into facilities. Denies fever,cp, abdominal pain, HEALY, dizziness, N/V/D. - Review of Systems Constitutional: No Symptoms Eyes: No Symptoms Ears, Nose, & Throat: No Symptoms Respiratory: Cough, Short Of Breath Cardiac: No Symptoms Abdominal/Gastrointestinal: No Symptoms Genitourinary Symptoms: No Symptoms Musculoskeletal: No Symptoms Skin: No Symptoms Neurological: No Symptoms Psychological: No Symptoms Endocrine: No Symptoms Hematologic/Lymphatic: No Symptoms Immunological/Allergic: No Symptoms Objective Exam General Appearance: no apparent distress Neurologic Exam: alert, oriented x 3, cooperative Skin Exam: normal color Eye Exam: PERRL Ears, Nose, Throat Exam: normal ENT inspection Neck Exam: normal inspection Respiratory Exam: diminished breath sounds Cardiovascular Exam: regular rate/rhythm, normal heart sounds Gastrointestinal/Abdomen Exam: soft, normal bowel sounds Extremity Exam: normal inspection Back Exam: normal inspection Pelvic Exam: deferred Rectal Exam: deferred OBJECTIVE DATA Vital Signs: Vital Signs - 24 hr Temp Pulse Resp BP Pulse Ox 08/25/23 04:00 97.8 F 83 24 115/53 96 08/25/23 01:49 94 H 20 94 L 08/25/23 00:00 98.2 F 83 18 106/54 98 08/24/23 20:00 98.2 F 88 22 98/57 93 L 08/24/23 19:06 102 H 22 94 L 08/24/23 16:00 98.8 F 86 33 H 101/63 91 L 08/24/23 12:54 94 H 20 96 08/24/23 12:00 98.1 F 95 H 24 110/67 90 L 08/24/23 07:54 88 20 93 L 08/24/23 07:33 98.3 F 90 20 104/59 93 L Pain Assessment - Last Documented Pain Intensity 0 Intake and Output: Intake & Output 08/22/23 08/23/23 08/24/23 08/25/23 11:59 11:59 11:59 11:59 Intake Total 383 265 5561 400 Output Total 1000 100 800 Balance -880 260 280 400 Weight 68 kg 68 kg 76.5 kg Lab Results: Lab Results-Last 24 Hours 08/24/23 Range/Units 04:25 Sodium 135 L (137-145) mmol/L Potassium 4.4 (3.5-5.1) mmol/L Chloride 98 (98-107) mmol/L Carbon Dioxide 32 H (22-30) mmol/L Anion Gap 8.5 (5-15) MEQ/L BUN 14 (7-17) mg/dL Creatinine 0.79 (0.52-1.04) mg/dL Estimated GFR 81.4 ML/MIN Glucose 87 (74-106) mg/dL Calcium 9.0 (8.4-10.2) mg/dL Total Bilirubin 0.50 (0.2-1.3) mg/dL AST 123 H (14-36) U/L ALT 110 H (0-35) U/L Alkaline Phosphatase 101 (38-126) U/L Serum Total Protein 7.2 (6.3-8.2) g/dL Albumin 3.7 (3.5-5.0) g/dL Multi-Disciplinary Progress Notes: Multi-Disciplinary Progress Notes 08/24/23 13:45 (created 08/24/23 18:15) Case Management Note by Karie Phelps PATIENT STILL REQUIRING HIGH AMOUNTS OF OXYGEN, AJ TO SEE PATIENT TODAY. WILL S/W PATIENT ABOUT DC PLANS/NEEDS AGAIN WHEN MORE STABLE FOR DC Initialized on 08/24/23 18:15 - END OF NOTE Assessment/Plan (1) UTI (urinary tract infection) Current Visit: Yes Status: Acute Assessment & Plan: (1) UTI (urinary tract infection) Current Visit: Yes Status: Acute Assessment & Plan: -UA suspicious for UTI, will start on ceftriaxone empirically, follow culture 08/23: -Ucult cancelled, unsure why, lab to investigate 08/24: -Ucult pending after recollection 09/07: -Ucult negative for growth Code(s): N39.0 - URINARY TRACT INFECTION, SITE NOT SPECIFIED (2) Acute kidney injury Current Visit: Yes Status: Acute Assessment & Plan: Creatinine elevated at 1.0 likely from prerenal azotemia 1. Trial of IVFs 2. Hold diuretics 3. Follow I/Os 4. Watch electrolytes, creatinine closely 08/21: -Resolved Code(s): N17.9 - ACUTE KIDNEY FAILURE, UNSPECIFIED (3) Influenza with pneumonia Current Visit: Yes Status: Acute Assessment & Plan: Influenza A positive but with R multilobar pneumonia 1. Admit to hospital 2. Duonebs/supplemental oxygen 3. Tamiflu 4. Empiric antibiotics with rocephin/zithromax 5. Follow up sputum cultures 6. IVFs 7. Monitor O2 sats with ambulation 08/21: -Continue rocephin/azithromycin/Tamiflu 08/22: -Improved aeration, will wean steroids/oxygen as tolerated -Continue abx/tamiflu -CT chest negative for PE, findings include" "Impression: 1. Continued negative pulmonary embolus. 2. New diffuse consolidating/nonconsolidating airspace disease, right lung greater than left. Small left and tiny right effusions presumed reactive. 3. New mediastinal and right hilar lymphadenopathy also presumed reactive. 4. Again abnormal distal esophageal wall thickening, possible esophagitis. 5. Chronic findings including fatty liver, heterogeneous right adrenal gland mass, bilateral renal cysts, chronic bony findings, and old granulomatous disease." 08/23: -Pulm consult, increased oxygen requirements -Continue above treatment 08/24: -Pulm consult pending, patient still requiring 8.5L on oxymizer -Continue ceftriaxone/tamiflu for now 08/25: -Pulm consulted with recs to follow up in one week -Continue with ceftriaxone -Remains on 6L oxymask, attempt to wean -SNF at d/c , CM working on this possible dc tomorrow if accepted (4) SOB (shortness of breath) Current Visit: No Status: Acute Onset Date: ~04/25/18 Assessment & Plan: Secondary to influenza/pneumonia Code(s): R06.02 - SHORTNESS OF BREATH (5) History of stroke Current Visit: No Status: Chronic Assessment & Plan: -noted, continue appropriate home meds Code(s): Z86.73 - PRSNL HX OF TIA (TIA), AND CEREB INFRC W/O RESID DEFICITS (6) Tobacco dependence Current Visit: No Status: Chronic Assessment & Plan: -Noted, nicotine patch Code(s): F17.200 - NICOTINE DEPENDENCE, UNSPECIFIED, UNCOMPLICATED (7) Seizure disorder Current Visit: Yes Status: Acute Assessment & Plan: -seizure precautions -continue appropriate home medications Code(s): N39.0 - URINARY TRACT INFECTION, SITE NOT SPECIFIED (2) Acute kidney injury Current Visit: Yes Status: Acute Code(s): N17.9 - ACUTE KIDNEY FAILURE, UNSPECIFIED (3) Influenza with pneumonia Current Visit: Yes Status: Acute (4) SOB (shortness of breath) Current Visit: No Status: Acute Onset Date: ~04/25/18 Code(s): R06.02 - SHORTNESS OF BREATH (5) History of stroke Current Visit: No Status: Chronic Code(s): Z86.73 - PRSNL HX OF TIA (TIA), AND CEREB INFRC W/O RESID DEFICITS (6) Tobacco dependence Current Visit: No Status: Chronic Code(s): F17.200 - NICOTINE DEPENDENCE, UNSPECIFIED, UNCOMPLICATED (7) Seizure disorder Current Visit: Yes Status: Acute Code(s): G40.909 - EPILEPSY, UNSP, NOT INTRACTABLE, WITHOUT STATUS EPILEPTICUS
[2023-08-25 05:45] LABS: ALBUMIN 3.1 g/dL (3.5-5.0); BILIRUBIN,TOTAL 0.4 mg/dL (0.2-1.3); Calcium 8.5 mg/dL (8.4-10.2); Creatinine 1 0.82 mg/dL (0.52-1.04); EST GLOMERULAR FILTRATION RATE 77.9 ML/MIN; Total Protein 6.2 g/dL (6.3-8.2)
--- NOTE | 2023-08-25 08:15 | CONS ---
CONSULT DATE: 08/24/2023 HISTORY: Camryn Vinson is a 68-year-old woman well known to me who has been admitted to [facility] on 08/21/2023 with complaints of increasing shortness of breath. The patient reportedly was sick for about a week prior to this admission. The patient is noted to have chronic obstructive pulmonary disease exacerbation. She tested positive for influenza A and is being treated for the same. She does report improvement in shortness of breath although she has been requiring 6 liters of oxygen at rest. She does desaturate and requiring several minutes to recover. She has cough which has been minimally productive. PAST MEDICAL HISTORY: Positive for history of chronic obstructive pulmonary disease, history of chronic hypoxemia usually on home oxygen therapy, history of dyslipidemia, history of pulmonary hypertension, anxiety and depression. PAST SURGICAL HISTORY: No recent surgery. PERSONAL AND SOCIAL HISTORY: She has been a smoker. MEDICATIONS: Medications reviewed. ALLERGIES: ACETAMINOPHEN, PAMABROM (DIFFICULTY BREATHING). INFLUENZA VIRUS VACCINE (SWELLING). PHYSICAL EXAMINATION: This is an elderly woman who appears mildly short of breath at rest. Vital signs noted. HEENT: Normocephalic. Oral exam limited. The patient continues to have discoloration of nose which is chronic. CVS: First and second heart sounds are normal, regular, rhythmic. RESPIRATORY: Shows diminished breath sounds, bilateral rhonchi heard. ABDOMEN: Obese. EXTREMITIES: Trace edema is noted. LABORATORY DATA AND TESTS: X-rays reviewed. ASSESSMENT: This is a 68-year-old woman admitted with: 1) Acute on chronic hypoxic respiratory failure. 2) Chronic obstructive pulmonary disease with exacerbation. 3) Pulmonary hypertension. 4) Comorbidities listed above. RECOMMENDATIONS: 1) The patient is currently on antibiotics, steroids, bronchodilators. 2) Deep vein thrombosis prophylaxis. 3) Continue home medications. 4) Gradually wean supplemental oxygen. 5) Her medical problems are fairly advanced and prognosis remains guarded. The patient may require brief rehab before returning back home. I will be available in follow up in outpatient setting.
[2023-08-25] MEDS: lamICTAL 100MG TABLET PO SCH ×2 (09:35→22:22)
[2023-08-25] MEDS: Tamiflu 75MG Capsule PO SCH (09:35)
[2023-08-25] MEDS: ZOLOFT 50 MG TABLET PO SCH (09:35)
[2023-08-25] MEDS: MYSOLINE 50MG PO SCH ×2 (09:35→22:22)
[2023-08-25] MEDS: ZOCOR 20MG PO SCH (09:36)
[2023-08-25] MEDS: Acidophilus TABLET PO SCH (09:36)
[2023-08-25] MEDS: ENOXAPARIN SODIUM SQ SCH (09:36)
[2023-08-25] MEDS: solu-MEDROL 40 MG, Sterile H2O 10 ml 1 ML IV SCH ×2 (09:37)
[2023-08-25] MEDS: NICOTINE PATCH 7MG TD SCH (09:37)
[2023-08-25] MEDS: ZONISAMIDE PO SCH ×2 (09:37→22:22)
[2023-08-25] MEDS ORDERED: Lasix 40 MG PO ONE (10:00)
[2023-08-25] MEDS: ROCEPHIN 1 GM / 100 ML NaCl 1 GM/100 ML IVPB IV SCH (20:25)
[2023-08-26] MEDS: DUONEB 0.5-3 MG/3 ml Neb IH SCH ×3 (01:03→12:02)
[2023-08-26 04:53] LABS: Hematocrit 39.8 % (35-47); Hemoglobin 11.9 g/dL (12.0-16.0); Mean Cell Volume 98.5 fL (78-100); Mean Corpuscular Hemoglobin 29.5 pg (26-32); Mean Corpuscular Hgb Concent. 29.9 g/dL (32-36); Platelet Count 228 x10^3/uL (150-450); Red Blood Count 4.04 x10^6/uL (4.1-5.4); Red Cell Distribution Width 14.6 % (11.5-14.0); White Blood Count 5.7 x10^3/uL (4.0-10.5)
[2023-08-26 05:06] LABS: ALBUMIN 3.5 g/dL (3.5-5.0); ANION GAP 6.6 MEQ/L (5-15); BILIRUBIN,TOTAL 0.4 mg/dL (0.2-1.3); Creatinine 1 0.88 mg/dL (0.52-1.04); EST GLOMERULAR FILTRATION RATE 71.5 ML/MIN; Potassium 4.3 mmol/L (3.5-5.1)
[2023-08-26 06:14] LABS: ANISOCYTOSIS 1+; Eosinophil 1 % (0.00-3.0); Lymphocytes 12 % (24-44); Monocyte 2 % (0.0-12.0); Neutrophils 85 % (36.0-66.0); Platelet Estimate NORMAL (NORMAL); Total Cells Counted 100
[2023-08-26 06:15] LABS: Hypochromia 1+
--- NOTE | 2023-08-26 09:31 | PCM.DS ---
Discharge Summary Date of Admission: 08/21/23 05:13 Date of Discharge: 08/26/23 Admitting Physician: MICHEL SANTAMARIA MD Consults: Consults on Case 08/23/23 13:37 Consult Pulmonology ROUTINE Primary Care Provider: KAUR MATOS DO Allergies Allergies acetaminophen [From Midol] Allergy (Severe, Verified 08/20/23 17:32) Difficulty Breathing Influenza Virus Vaccines Allergy (Severe, Verified 06/29/21 10:22) Swelling states "arm got huge pamabrom [From Midol] Allergy (Severe, Verified 08/20/23 17:32) Difficulty Breathing Hospital Summary - Hospital Course Hospital Course: Ms. Vinson is a 68 year old female with a past medical history significant for L breast cancer status post resection/chemo, hyperlipidemia, previous CVA and chronic O2 usage who presented to ED 08/20/23 with complaints of increasing shortness of breath associated with fever up to 102. She tested positive for influenza but CXR also demonstrated R upper/middle/lower lobe infiltrates. CT chest negative for PE, demonstrating new diffuse consolidating/nonconsolidating airspace disease, right lung greater than left. Small left and tiny right effusions, and 3. New mediastinal and right hilar lymphadenopathy. She has been hypoxic with O2 sats in the 80s that worsens with movement. UA also suspicious for UTI. She has been given antibiotics, Tamiflu, and supplemental oxygen. Admitted with UTI, influenza, and pneumonia. Current treatment with ceftriaxone, azithromycin, solumedrol. Of note, patient became hypotensive and started on levophed drip, later able to wean off. BIPAP also initiated and weaned off. Pulmonology consulted, no changes to current medication regimen. Dyspnea/cough have improved. Ucult negative. Patient now on 4L NC. She will discharge today to SNF for rehab. Discharge Note New Diagnosis: Pneumonia/ influenza New Medications:cefpodoxime/prednisone Follow Up: PCP/Pulm Latest Assessment & Plan -UA suspicious for UTI, will start on ceftriaxone empirically, follow culture 08/23: -Ucult cancelled, unsure why, lab to investigate 08/24: -Ucult pending after recollection 09/07: -Ucult negative for growth Code(s): N39.0 - URINARY TRACT INFECTION, SITE NOT SPECIFIED (2) Acute kidney injury Current Visit: Yes Status: Acute Assessment & Plan: Creatinine elevated at 1.0 likely from prerenal azotemia 1. Trial of IVFs 2. Hold diuretics 3. Follow I/Os 4. Watch electrolytes, creatinine closely 08/21: -Resolved Code(s): N17.9 - ACUTE KIDNEY FAILURE, UNSPECIFIED (3) Influenza with pneumonia Current Visit: Yes Status: Acute Assessment & Plan: Influenza A positive but with R multilobar pneumonia 1. Admit to hospital 2. Duonebs/supplemental oxygen 3. Tamiflu 4. Empiric antibiotics with rocephin/zithromax 5. Follow up sputum cultures 6. IVFs 7. Monitor O2 sats with ambulation 08/21: -Continue rocephin/azithromycin/Tamiflu 08/22: -Improved aeration, will wean steroids/oxygen as tolerated -Continue abx/tamiflu -CT chest negative for PE, findings include" "Impression: 1. Continued negative pulmonary embolus. 2. New diffuse consolidating/nonconsolidating airspace disease, right lung greater than left. Small left and tiny right effusions presumed reactive. 3. New mediastinal and right hilar lymphadenopathy also presumed reactive. 4. Again abnormal distal esophageal wall thickening, possible esophagitis. 5. Chronic findings including fatty liver, heterogeneous right adrenal gland mass, bilateral renal cysts, chronic bony findings, and old granulomatous disease." 08/23: -Pulm consult, increased oxygen requirements -Continue above treatment 08/24: -Pulm consult pending, patient still requiring 8.5L on oxymizer -Continue ceftriaxone/tamiflu for now 08/25: -Pulm consulted with recs to follow up in one week -Continue with ceftriaxone -Remains on 6L oxymask, attempt to wean -SNF at d/c , CM working on this possible dc tomorrow if accepted 08/26: -4LNC, will d/c to snf for rehab on cefpodoxime/prednisone. -Follow up with pulm as OP (4) SOB (shortness of breath) Current Visit: No Status: Acute Onset Date: ~04/25/18 Assessment & Plan: Secondary to influenza/pneumonia Code(s): R06.02 - SHORTNESS OF BREATH (5) History of stroke Current Visit: No Status: Chronic Assessment & Plan: -noted, continue appropriate home meds Code(s): Z86.73 - PRSNL HX OF TIA (TIA), AND CEREB INFRC W/O RESID DEFICITS (6) Tobacco dependence Current Visit: No Status: Chronic Assessment & Plan: -Noted, nicotine patch Code(s): F17.200 - NICOTINE DEPENDENCE, UNSPECIFIED, UNCOMPLICATED (7) Seizure disorder Current Visit: Yes Status: Acute Assessment & Plan: -seizure precautions -continue appropriate home medications Code(s): N39. I spent 35 minutes [id number] with the patient on the day of discharge performing discharge exam, discussing hospital stay and discharge instructions with patient and caregivers, preparation of discharge records, prescriptions & referral forms and addressing any questions/concerns the patient had as documented above. - Vitals & Intake/Output Vital Signs: Vital Signs Temperature 97.6 F 08/26/23 08:00 Pulse Rate 88 08/26/23 08:00 Respiratory Rate 17 08/26/23 08:00 Blood Pressure 129/84 08/26/23 08:00 O2 Sat by Pulse Oximetry 98 08/26/23 08:00 Intake & Output: Intake & Output 08/23/23 08/24/23 08/25/23 08/26/23 11:59 11:59 11:59 11:59 Intake Total 360 1080 600 780 Output Total 100 800 800 Balance 260 280 -200 780 Weight 68 kg 76.5 kg 75 kg - Lab Result Diagrams: 08/26/23 04:49 08/26/23 04:49 Lab Results-Last 24 Hrs: Lab Results-Last 24 Hours 08/26/23 08/26/23 Range/Units 04:49 04:49 WBC 5.7 (4.0-10.5) x10^3/uL RBC 4.04 L (4.1-5.4) x10^6/uL Hgb 11.9 L (12.0-16.0) g/dL Hct 39.8 (35-47) % MCV 98.5 (78-100) fL MCH 29.5 (26-32) pg MCHC 29.9 L (32-36) g/dL RDW 14.6 H (11.5-14.0) % Plt Count 228 (150-450) x10^3/uL MPV 10.0 (7.5-11.0) fL Segmented Neutrophils 85 H (36.0-66.0) % Lymphocytes (Manual) 12 L (24-44) % Monocytes (Manual) 2 (0.0-12.0) % Eosinophils (Manual) 1 (0.00-3.0) % Hypochromia 1+ Platelet Estimate NORMAL (NORMAL) RBC Morphology ABNORMAL Anisocytosis 1+ Sodium 137 (137-145) mmol/L Potassium 4.3 (3.5-5.1) mmol/L Chloride 100 (98-107) mmol/L Carbon Dioxide 35 H (22-30) mmol/L Anion Gap 6.6 (5-15) MEQ/L BUN 16 (7-17) mg/dL Creatinine 0.88 (0.52-1.04) mg/dL Estimated GFR 71.5 ML/MIN Glucose 91 (74-106) mg/dL Calcium 9.0 (8.4-10.2) mg/dL Total Bilirubin 0.40 (0.2-1.3) mg/dL AST 38 H (14-36) U/L ALT 69 H (0-35) U/L Alkaline Phosphatase 83 (38-126) U/L Serum Total Protein 7.0 (6.3-8.2) g/dL Albumin 3.5 (3.5-5.0) g/dL Micro Results-Entire Visit: Microbiology 08/20/23 18:00 Blood Culture - Final Blood NO GROWTH 08/23/23 15:19 Urine Culture - Final Clean Catch Midstream NO GROWTH 08/20/23 18:15 Blood Culture Gram Stain - Final Blood Blood Culture - Final Coagulase Negative Staph. Possible Contaminant. Clinical judgement required. No further workup performed. - Procedures and Test Procedures and Tests throughout Hospitalization: Therapy Orders & Screens 08/20/23 17:54 Respiratory Therapy Assessment DAILY Comment: 08/20/23 20:43 Oxygen Non-rebreather 15% Comment: Respiratory Therapy Consult ONCE Comment: Reason For Exam: 08/20/23 22:09 BiPap/CPAP ROUTINE Comment: Diagnosis: influenza A, pneumonia 08/21/23 09:00 RT Screen per Nursing Assess ONCE Comment: Protocol Order Physician Instructions: Greater than 3 points order RT Admission Screen Reason For Exam: Triggered on Admission Diagnosis: influenza A, pneumonia Diagnosis: influenza A, pneumonia Pneumonia: Yes Home O2: Yes Asthma: No CHF: Yes Home CPAP/BIPAP: No Home Nebs/MDI: No Total Points: 11 Smoking Cessation Education ONCE Comment: Diagnosis: influenza A, pneumonia Smoking Status: Current every day smoker How long have you smoked: 53 years Have you smoked in the past 12 months: Yes Approximately how many cigarettes per day: 1 Do you dip or chew tobacco: No ST Screen per Nursing Assess ONCE Comment: Protocol Order Physician Instructions: Greater than [address] Admission Screening Reason For Exam: Triggered on Admission Diagnosis: influenza A, pneumonia CVA/Dyshpagia/Aphasia: No Cognitive Deficits: No Dehydration/Nutrition Deficit: No Reflux: No Oral-Motor Difficulties: No Pneumonia: Yes [facility] Resident: No Total Points: 5 08/24/23 07:50 PT Eval & Treat (MD Order) ONCE Reason for Eval:: WEAKNESS Diagnosis: PNEUMONIA, INFLUENZA A, RESP FX 08/26/23 01:02 Oxygen Oxymizer LPM 5 lpm Comment: Diagnosis: PNEUMONIA, INFLUENZA A, RESP FX Discharge Exam General Appearance: no apparent distress Neurologic Exam: alert, oriented x 3, cooperative Eye Exam: PERRL Ears, Nose, Throat Exam: normal ENT inspection Neck Exam: normal inspection Respiratory Exam: crackles/rales Cardiovascular Exam: regular rate/rhythm, normal heart sounds Gastrointestinal/Abdomen Exam: soft, normal bowel sounds Pelvic Exam: deferred Rectal Exam: deferred Back Exam: normal inspection Extremity Exam: normal inspection Skin Exam: normal color Final Diagnosis/Problem List - Final Discharge Diagnosis/Problem (1) Influenza with pneumonia Current Visit: Yes Status: Acute (2) UTI (urinary tract infection) Current Visit: Yes Status: Resolved Code(s): N39.0 - URINARY TRACT INFECTION, SITE NOT SPECIFIED (3) Acute kidney injury Current Visit: Yes Status: Resolved Code(s): N17.9 - ACUTE KIDNEY FAILURE, UNSPECIFIED (4) SOB (shortness of breath) Current Visit: No Status: Chronic Onset Date: ~04/25/18 Code(s): R06.02 - SHORTNESS OF BREATH (5) History of stroke Current Visit: No Status: Chronic Code(s): Z86.73 - PRSNL HX OF TIA (TIA), AND CEREB INFRC W/O RESID DEFICITS (6) Tobacco dependence Current Visit: No Status: Chronic Code(s): F17.200 - NICOTINE DEPENDENCE, UNSPECIFIED, UNCOMPLICATED (7) Seizure disorder Current Visit: Yes Status: Chronic Code(s): G40.909 - EPILEPSY, UNSP, NOT INTRACTABLE, WITHOUT STATUS EPILEPTICUS - Discharge Disposition: DC TO ANY "OTHER" [facility] Condition: Fair Prescriptions: New Lactobacillus Acidophilus [Acidophilus TABLET] 1 tab PO DAILY tablet Prednisone 20 mg [Deltasone 20 mg] 20 mg PO BID 5 Days #10 tablet Albuterol/Ipratropium 3ml Neb* [DUONEB 0.5-3 MG/3 ml Neb] 3 ml IH Q6HRT Nicotine [Nicotine Patch 7Mg] 1 each TD DAILY patch Cefpodoxime Proxetil 200 mg [Vantin 200 mg] 200 mg PO BID 5 Days #10 tablet Continue Sertraline HCl 100 mg [Zoloft 100 MG] 100 mg PO DAILY Zonisamide [Zonegran] 300 mg PO BID lamoTRIgine [Lamotrigine] 150 mg PO BID Primidone [Mysoline] 50 mg PO BID Rosuvastatin Calcium 1 tab PO DAILY Metolazone 2.5 mg [Zaroxolyn 2.5 MG] 1 tab PO WEEKLY Bumetanide 1 mg [Bumex 1 mg] 1 tab PO BID Sildenafil Citrate 20 mg PO BID Follow up with: YOSI TINSLEY [ACTIVE STAFF] - 09/08/23 3:00 pm
[2023-08-26] MEDS: Acidophilus TABLET PO SCH (11:29)
[2023-08-26] MEDS: lamICTAL 100MG TABLET PO SCH (11:29)
[2023-08-26] MEDS: ZOLOFT 50 MG TABLET PO SCH (11:29)
[2023-08-26] MEDS: ZOCOR 20MG PO SCH (11:30)
[2023-08-26] MEDS: MYSOLINE 50MG PO SCH (11:30)
[2023-08-26] MEDS: solu-MEDROL 40 MG, Sterile H2O 10 ml 1 ML IV SCH ×2 (11:31)
[2023-08-26] MEDS: ZONISAMIDE PO SCH (11:32)
[2023-08-26] MEDS: ENOXAPARIN SODIUM SQ SCH (11:32)
[2023-08-26] MEDS: NICOTINE PATCH 7MG TD SCH ×2 (11:32→11:42)
[2023-08-26 12:16] VITALS: BP 107/63; PULSE 90; RESP 17; TEMP 98.1; O2SAT 93
== END 2023-08-26 15:42 | DRG 194 ==
LOC: ED 17:24 → ICU 20:28 → OBSVTOIN 08-21 05:13 → MED SURG 08-22 13:54
PROVIDERS: ADMIT Internal Medicine Nephrology; ATTEND Internal Medicine Nephrology
DX: J10.00 Influenza due to other identified influenza virus with unspecified type of pneumonia (principal); N17.9 Acute kidney failure, unspecified; N39.0 Urinary tract infection, site not specified; R06.02 Shortness of breath; Z86.73 Personal history of transient ischemic attack (TIA), and cerebral infarction without residual deficits; F17.200 Nicotine dependence, unspecified, uncomplicated; G40.909 Epilepsy, unspecified, not intractable, without status epilepticus; E78.5 Hyperlipidemia, unspecified; Z79.899 Other long term (current) drug therapy; Z20.828 Contact with and (suspected) exposure to other viral communicable diseases; Z85.3 Personal history of malignant neoplasm of breast; Z99.81 Dependence on supplemental oxygen
CPT/HCPCS: 0241U; 36000; 36415; 36600; 71046; 71260; 80053; 81001; 82375; 82803; 83605; 83735; 83880; 84132; 85025; 85379; 87040; 87086; 93005; 93041; 93268; 94002; 94003; 94640; 94760; 94762; 96374; 97110; 97163; 97530; 99285; 99291; G0378; Q3014; J0456; J0696; J1650; J1940; J2920; J2930; A9270-GY